=== PATIENT | female | born 1965 | race Caucasian/White ===

== ENCOUNTER 2016-12-09 19:02 | Outpatient (CLI) | payer MEDICAID | END 2016-12-09 19:03 | disposition home or self-care (01) | DX: R10.0 Acute abdomen (principal); Z90.710 Acquired absence of both cervix and uterus ==

== ENCOUNTER 2016-12-12 13:01 | Outpatient (CLI) | payer MEDICAID | END 2016-12-12 13:02 | disposition home or self-care (01) | DX: R10.0 Acute abdomen (principal); Z90.49 Acquired absence of other specified parts of digestive tract ==

== ENCOUNTER 2016-12-14 14:00 | Emergency (ER) | payer MEDICAID ==
[2016-12-14] MEDS ORDERED: KETOROLAC 60 MG/2 ML VIAL IVP STA (15:35)
[2016-12-14] MEDS ORDERED: ONDANSETRON 4 MG/2 ML VIAL IVP STA (15:35)
[2016-12-14] MEDS ORDERED: SODIUM CHLORIDE 0.9% 1,000 ML IV ONE (15:35)
[2016-12-14] MEDS ORDERED: HYDROmorphone 1 MG/ML SYRINGE IVP STA ×2 (15:36→17:45)
[2016-12-14] MEDS ORDERED: HYDROmorphone 1 MG/ML SYRINGE ONE ×2 (16:02→17:47)
[2016-12-14] MEDS ORDERED: KETOROLAC 30 MG/ML VIAL ONE (16:02)
[2016-12-14] MEDS ORDERED: ONDANSETRON 4 MG/2 ML VIAL ONE (16:03)
[2016-12-14] MEDS ORDERED: IOPAMIDOL-300 100 ML VIAL IVP ONE (16:29)
[2016-12-14] MEDS ORDERED: LIDOCAINE VISCOUS 2% 15 ML UDC MM STA (17:46)
[2016-12-14] MEDS ORDERED: MAG HYDROX/AL HYDROX/SIMETH 30 ML UDC PO STA (17:46)
[2016-12-14] MEDS ORDERED: LIDOCAINE VISCOUS 2% 15 ML UDC MM ONE (17:47)
[2016-12-14] MEDS ORDERED: MAG HYDROX/AL HYDROX/SIMETH 30 ML UDC ONE (17:48)
[2016-12-14] MEDS ORDERED: DOCUSATE SODIUM 100 MG CAPSULE PO STA (18:25)
[2016-12-14] MEDS ORDERED: DOCUSATE SODIUM 100 MG CAPSULE PO ONE (18:27)
== END 2016-12-14 18:34 | disposition home or self-care (01) ==
DX: R10.84 Generalized abdominal pain (principal); K59.00 Constipation, unspecified; M06.9 Rheumatoid arthritis, unspecified
CPT/HCPCS: 36415; 74177; 80053; 81003; 83690; 85025; 87339; 96374; 96375; 96376; 99281; 99283; A9270; J1170; Q9967

== ENCOUNTER 2017-03-24 08:00 | Outpatient (CLI) | payer MEDICAID | END 2017-03-24 23:59 | disposition home or self-care (01) | LOC: LAB.R 08:00 | PROVIDERS: ATTEND Physician Assistant Medical | DX: R10.2 Pelvic and perineal pain (principal); N72 Inflammatory disease of cervix uteri | CPT/HCPCS: 87086 ==

== ENCOUNTER 2017-03-25 12:13 | Outpatient (CLI) | payer MEDICAID ==
--- NOTE | 2017-03-26 07:35 | Ultrasound Report ---
PELVIC ULTRASOUND: 03/25/2017 CLINICAL HISTORY: A 52-year-old female with inflammation of the cervix with cervical pain during phys ical exam and pelvic pain on the right. TECHNIQUE: Transabdominal pelvic ultrasound performed for global evaluation. Transvaginal pelvic ultr asound performed for detailed evaluation. Real-time scanning performed and static images obtained. COMPARISON: 12/09/2016. FINDINGS: Transabdominal and transvaginal ultrasound was done. The uterus has been removed. The alli ining cervical tissue shows no abnormality on ultrasound. No abnormality is seen either on transabdom inal or transvaginal ultrasound. The right ovary measures 2.4 cm by 3.1 cm by 1.3 cm for a volume of 2.1 cubic centimeters. The left o vary measures 2.1 cm by 1.7 cm by 1.0 cm for a volume of 1.8 cubic centimeters. Both ovaries are visualized but appear to show postmenopausal atrophy. IMPRESSION: 1. PAST HISTORY OF A HYSTERECTOMY. REMAINING CERVICAL TISSUE SHOWS NO SIGNIFICANT ABNORMALITY EITHER ON TRANSABDOMINAL OR TRANSVAGINAL ULTRASOUND. 2. OVARIES ARE UNREMARKABLE. THEY DEMONSTRATE BILATERAL POSTMENOPAUSAL ATROPHY. JOB #: [id number] EXT JOB #:[id number]
== END 2017-03-25 12:14 | disposition home or self-care (01) ==
LOC: DI 12:13
PROVIDERS: ATTEND Physician Assistant Medical
DX: R10.2 Pelvic and perineal pain (principal); Z90.710 Acquired absence of both cervix and uterus; N83.312 Acquired atrophy of left ovary; N83.311 Acquired atrophy of right ovary
CPT/HCPCS: 76830; 76856

== ENCOUNTER 2017-04-05 08:00 | Outpatient (CLI) | payer MEDICAID ==
[2017-04-05 18:08] LABS: BILIRUBIN,URINE NEGATIVE (NEGATIVE)
[2017-04-05 18:13] LABS: BASOPHILS % (AUTO) 0.1 %; HCT - HEMATOCRIT 40.8 % (37.0-47.0); HGB - HEMOGLOBIN 13.9 g/dL (12.0-16.0); LYMPHOCYTES # (AUTO) 1.6 10^3/uL (1.5-3.5); LYMPHOCYTES % (AUTO) 27.3 %; MEAN CORPUSCULAR HEMOGLOBIN 29.7 pg (27.0-31.0); MEAN CORPUSCULAR HGB CONC 34.2 g/dL (32.0-36.0); MEAN CORPUSCULAR VOLUME 86.8 fL (81.0-99.0); MEAN PLATELET VOLUME 9.5 fL (7.9-10.8); MONOCYTES # (AUTO) 0.6 10^3/uL (0.0-1.0); MONOCYTES % (AUTO) 10.5 %; NEUTROPHILS # (AUTO) 3.7 10^3/uL (1.5-6.6); NEUTROPHILS % (AUTO) 62.1 %; NUCLEATED RED BLOOD CELLS AUTO 0.1 /100WBC; RED CELL DISTRIBUTION WIDTH 12.8 % (12.0-15.0)
[2017-04-05 18:17] LABS: WBC,URINE 0-3 /HPF (0-5)
[2017-04-05 18:38] LABS: ALBUMIN/GLOBULIN RATIO 1.6 (1.0-2.2); BILIRUBIN,TOTAL 0.4 mg/dL (0.2-1.0); CALCIUM 9.8 mg/dL (8.5-10.3); CREATININE 0.7 mg/dL (0.4-1.0); POTASSIUM 3.7 mmol/L (3.5-5.0); TOTAL PROTEIN 7.8 g/dL (6.7-8.2)
== END 2017-04-05 08:01 | disposition home or self-care (01) ==
LOC: LAB.F 08:00
PROVIDERS: ATTEND Internal Medicine
DX: R10.9 Unspecified abdominal pain (principal)
CPT/HCPCS: 36415; 80053; 81001; 83690; 85025

== ENCOUNTER 2017-04-14 20:02 | Outpatient (CLI) | payer MEDICAID ==
--- NOTE | 2017-04-15 09:53 | Ultrasound Report ---
COMPLETE ABDOMINAL ULTRASOUND: 04/14/2017 CLINICAL INDICATION: Pain. COMPARISON: CT 12/14/2016, ultrasound 12/12/2016. TECHNIQUE: Real-time scanning was performed with auto claim representative static images obtained. FINDINGS: The liver measures 13.1 cm. Hepatic echotexture is normal. No intrahepatic biliary dilat ation or focal parenchymal lesion is appreciated. The patient is status post cholecystectomy. The c ommon bile duct measures 6 mm. The pancreas appears edematous, and the patient did report localized tenderness of the pancreas. The kidneys are normal, with the right measuring 9.3 cm and the left lyla suring 9.2 cm. The spleen measures 8.1 cm, and appears unremarkable. The abdominal aorta is normal in caliber. The inferior vena cava is unremarkable. No free fluid is present. IMPRESSION: CHANGES OF CHOLECYSTECTOMY. EDEMATOUS APPEARANCE OF THE PANCREAS, WITH LOCALIZED TENDER NESS, SUGGESTIVE OF PANCREATITIS. CORRELATION WITH ENZYMATIC EVIDENCE OF PANCREATITIS IS RECOMMENDED . NO ASCITES. JOB #: [id number] EXT JOB #:[id number]
== END 2017-04-14 20:03 | disposition home or self-care (01) ==
LOC: DI 20:02
PROVIDERS: ATTEND Internal Medicine
DX: R10.9 Unspecified abdominal pain (principal); Z90.49 Acquired absence of other specified parts of digestive tract
CPT/HCPCS: 76700

== ENCOUNTER 2017-04-16 09:54 | Emergency (ER) | payer MEDICAID ==
[2017-04-16] MEDS ORDERED: ONDANSETRON 4 MG/2 ML VIAL IVP STA ×2 (10:52→13:43)
[2017-04-16] MEDS ORDERED: HYDROmorphone 1 MG/ML SYRINGE IVP STA ×2 (10:52→13:43)
[2017-04-16] MEDS ORDERED: SODIUM CHLORIDE 0.9% 1,000 ML IV ONE (10:52)
--- NOTE | 2017-04-16 10:55 | ED Physician Documentation ---
PD HPI ABD PAIN - Stated complaint Stated Complaint: ABD/BACK PX - Chief complaint Chief Complaint: Abd Pain - History obtained from History obtained from: Patient, Family - History of Present Illness Timing - onset: How many weeks ago (5) Timing - duration: Weeks (5) Timing - details: Gradual onset, Still present, Waxing and waning Quality: Cramping, Sharp, Pain Location: Epigastric Radiation: Upper back Improved by: Laying still, Vomiting, Position Worsened by: Eating, Breathing, Position, Palpation Associated symptoms: Nausea, Vomiting, Loss of appetite Similar symptoms before: Has not had sx before Recently seen: Clinic - Additional information Additional information: 52-year-old female with a month long history of epigastric pain nausea and vomiting that seems to get better if she does not eat and she has been drinking only tiny bits of fluid at a time because she gets pain even drinking water. She has had nausea and vomiting she has had a visit to her primary care doctor and an ultrasound is been obtained 2 days ago after discovering an elevated lipase on 05 April. The ultrasound demonstrated what appears to be evidence of pancreatitis. The patient has not had pancreatitis previously she has had a prior history of gallstones and had her gallbladder removed without common duct stone. She denies consumption of alcohol and she does not know what her triglycerides are.She does have a history of rheumatoid arthritis and is on Humira. She also has a history of silent reflux. Review of Systems Constitutional: denies: Fever Eyes: denies: Decreased vision Ears: denies: Ear pain Nose: denies: Congestion Throat: denies: Sore throat Cardiac: denies: Chest pain / pressure, Palpitations Respiratory: denies: Dyspnea, Cough GI: reports: Abdominal Pain, Nausea, Vomiting : denies: Dysuria, Frequency Skin: denies: Rash, Lesions Musculoskeletal: reports: Back pain. 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: Hysterectomy HEENT: Tonsil/Adenoidectomy - Present Medications Home Medications: Ambulatory Orders Medication Instructions Recorded Confirmed Adalimumab [Humira] 12/14/16 Atenolol 25 mg PO BID 12/14/16 12/14/16 Docusate Sodium 250Mg Capsule 250 mg PO DAILY #30 capsule 12/14/16 [Colace 250Mg Capsule] Gabapentin 600 mg PO QID 12/14/16 12/14/16 Hydrocodone/Acetaminophen [[place] 1 each PO Q6H PRN #20 tablet 12/14/16 5-325 Tablet] Meloxicam 7.5 mg PO BID 12/14/16 12/14/16 Naproxen 375 mg PO BID #20 tablet 12/14/16 Omeprazole 40 mg PO DAILY 12/14/16 12/14/16 Sucralfate 1 gm PO QID #40 tablet 12/14/16 HYDROcod/ACETAM 5/325 [[place] 5/325] 1 - 2 ea PO Q6H PRN #15 tablet 04/16/17 Ondansetron Odt [Zofran] 4 mg TL Q6H PRN #10 tablet 04/16/17 Sucralfate [Carafate] 1 gm PO ACHS #400 ml 04/16/17 - Allergies Allergies/Adverse Reactions: Allergies Allergy/AdvReac Type Severity Reaction Status Date / Time codeine Allergy Unknown Verified 12/14/16 14:06 - Social History Does the pt smoke?: No Smoking Status: Never smoker PD ED PE NORMAL - Vitals Vital signs reviewed: Yes (hypertensive) - General General: Well developed/nourished, Other (The patient appears to be in pain with validation intern tone and flattened affect she is clutching her abdomen and leaning forward.) - HEENT HEENT: Atraumatic, PERRL - Neck Neck: Supple, no meningeal sign - Cardiac Cardiac: RRR, No murmur - Respiratory Respiratory: No respiratory distress, Clear bilaterally - Abdomen Abdomen: Soft, Other (There is epigastric tenderness that is reproducible and there is not other abdominal tenderness. ) - Back Back: No CVA TTP, No spinal TTP - Derm Derm: Normal color, Warm and dry, No rash - Extremities Extremities: No deformity, No edema - Neuro Neuro: No motor deficit, No sensory deficit - Psych Psych: Normal mood Results - Vitals Vitals: Vital Signs - 24 hr 04/16/17 04/16/17 04/16/17 10:12 14:07 14:46 Temperature 36.6 C 36.5 C Heart Rate 84 66 69 Respiratory 18 18 14 Rate Blood Pressure 139/76 H 130/76 128/73 O2 Saturation 99 99 98 Oxygen O2 Source Room air - Labs Labs: Laboratory Tests 04/16/17 04/16/17 04/16/17 11:00 11:00 11:00 WBC 6.7 RBC 4.86 Hgb 14.4 Hct 42.2 MCV 86.9 MCH 29.7 MCHC 34.2 RDW 13.0 Plt Count 213 MPV 8.7 Neut # 4.3 Lymph # 1.7 [place] # 0.6 Eos # 0.0 Baso # 0.0 Absolute Nucleated RBC 0.00 Nucleated RBCs 0.0 Sodium 140 Potassium 3.9 Chloride 104 Carbon Dioxide 28 Anion Gap 8.0 BUN 13 Creatinine 0.9 Estimated GFR (MDRD) 65 L Glucose 104 H Calcium 9.6 Total Bilirubin 0.7 AST 22 ALT 21 Alkaline Phosphatase 40 L Troponin I < 0.04 Total Protein 7.1 Albumin 4.3 Globulin 2.8 Albumin/Globulin Ratio 1.5 Triglycerides 119 Lipase 39 Urine Color Urine Clarity Urine pH Ur Specific [place] Urine Protein Urine Glucose (UA) Urine Ketones Urine Occult Blood Urine Nitrite Urine Bilirubin Urine Urobilinogen Ur Leukocyte Esterase Ur Microscopic Review Urine Culture Comments Ethyl Alcohol < 5.0 H. pylori IgG Antibody 04/16/17 04/16/17 11:00 12:00 WBC RBC Hgb Hct MCV MCH MCHC RDW Plt Count MPV Neut # Lymph # [place] # Eos # Baso # Absolute Nucleated RBC Nucleated RBCs Sodium Potassium Chloride Carbon Dioxide Anion Gap BUN Creatinine Estimated GFR (MDRD) Glucose Calcium Total Bilirubin AST ALT Alkaline Phosphatase Troponin I Total Protein Albumin Globulin Albumin/Globulin Ratio Triglycerides Lipase Urine Color YELLOW Urine Clarity CLEAR Urine pH 7.0 Ur Specific [place] <=1.005 Urine Protein NEGATIVE Urine Glucose (UA) NEGATIVE Urine Ketones NEGATIVE Urine Occult Blood NEGATIVE Urine Nitrite NEGATIVE Urine Bilirubin NEGATIVE Urine Urobilinogen 0.2 (NORMAL) Ur Leukocyte Esterase NEGATIVE Ur Microscopic Review NOT INDICATED Urine Culture Comments NOT INDICATED Ethyl Alcohol H. pylori IgG Antibody Negative - Rads (name of study) CT abdomen pelvis with Radiology: Prelim report reviewed (Impression: 1. Normal CT imaging of the pancreas and peripancreatic space.2. Status postcholecystectomy, with mild intra-and extrahepatic bile duct dilation without visualizing filling defect, probably secondary to changes of cholecystectomy.3. Persistent mild hepatic steatosis and a small hepatic nodule in the lower right lobe, 4 mm, probable small hemangioma, otherwise too small to further characterize.4. Negative for bowel obstruction or inflammatory changes.), EMP read indepedently, See rad report PD MEDICAL DECISION MAKING - ED course Complexity details: reviewed old records, reviewed results, re-evaluated patient , considered differential, d/w patient, d/w family ED course: 52 y/o female with a history of silent GERD on omeprezole has developed epigastric pain radiating to her back and nausea and vomiting for the past month. She feels that her omeprazole has stopped working and here in the emergency department she is administered a GI cocktail consisting of viscous lidocaine Mylanta and Carafate. She does have some improvement but not resolution of her symptoms. She is subsequently given more Dilaudid and Zofran as well as IV Pepcid. Departure - Departure Disposition: 01 Home, Self Care Clinical Impression: Gastritis Qualifiers: Gastritis type: other gastritis Chronicity: acute Gastritis bleeding: presence of bleeding unspecified Qualified Code(s): K29.00 - Acute gastritis without bleeding Condition: Stable Instructions: ED PUD Vs Gastritis Follow-Up: Fermin Sahni MD [Primary Care Provider] - Prescriptions: Sucralfate [Carafate] 1 gm PO ACHS #400 ml HYDROcod/ACETAM 5/325 [[place] 5/325] 1 - 2 ea PO Q6H PRN #15 tablet PRN Reason: Pain Ondansetron Odt [Zofran] 4 mg TL Q6H PRN #10 tablet PRN Reason: Nausea / Vomiting Comments: Today it appears you have inflammation in the stomach or duodenum and this likely represents an ulcer. Switch your medication for acid in the stomach to Pepcid and take the carafate as prescribed before meals and at bedtime. Use the vicoden as needed and follow up with the surgeon for a look inside the stomach. Discharge Date/Time: 04/16/17 14:55
[2017-04-16 11:08] LABS: BASOPHILS % (AUTO) 0.7 %; EOSINOPHILS % (AUTO) 0.6 %; HCT - HEMATOCRIT 42.2 % (37.0-47.0); HGB - HEMOGLOBIN 14.4 g/dL (12.0-16.0); LYMPHOCYTES # (AUTO) 1.7 10^3/uL (1.5-3.5); LYMPHOCYTES % (AUTO) 25.9 %; MEAN CORPUSCULAR HEMOGLOBIN 29.7 pg (27.0-31.0); MEAN CORPUSCULAR HGB CONC 34.2 g/dL (32.0-36.0); MEAN CORPUSCULAR VOLUME 86.9 fL (81.0-99.0); MEAN PLATELET VOLUME 8.7 fL (7.9-10.8); MONOCYTES # (AUTO) 0.6 10^3/uL (0.0-1.0); MONOCYTES % (AUTO) 8.2 %; NEUTROPHILS # (AUTO) 4.3 10^3/uL (1.5-6.6); NEUTROPHILS % (AUTO) 64.6 %; RED BLOOD COUNT 4.86 10^6/uL (4.20-5.40); UNCORRECTED WHITE BLOOD COUNT 6.7 x10^3/uL; WHITE BLOOD COUNT 6.7 x10^3/uL (4.8-10.8)
[2017-04-16] MEDS ORDERED: ONDANSETRON 4 MG/2 ML VIAL ONE ×2 (11:10→13:53)
[2017-04-16] MEDS ORDERED: HYDROmorphone 1 MG/ML SYRINGE ONE ×2 (11:10→13:53)
[2017-04-16 11:23] LABS: ALBUMIN/GLOBULIN RATIO 1.5 (1.0-2.2); BILIRUBIN,TOTAL 0.7 mg/dL (0.2-1.0); BUN - BLOOD UREA NITROGEN 13 mg/dL (6-20); CALCIUM 9.6 mg/dL (8.5-10.3); CARBON DIOXIDE - CO2 28 mmol/L (21-32); CHLORIDE 104 mmol/L (101-111); CREATININE 0.9 mg/dL (0.4-1.0); GFR - MDRD 65 (>89); GLUCOSE 104 mg/dL (70-100); LIPASE 39 U/L (22-51); POTASSIUM 3.9 mmol/L (3.5-5.0); SODIUM 140 mmol/L (135-145); TOTAL PROTEIN 7.1 g/dL (6.7-8.2); TRIGLYCERIDES 119 mg/dL
[2017-04-16] MEDS ORDERED: IOPAMIDOL-300 100 ML VIAL IVP ONE (11:53)
[2017-04-16 12:19] LABS: BILIRUBIN,URINE NEGATIVE (NEGATIVE)
[2017-04-16 12:21] LABS: UA CHARGE (STRIP ONLY) YES; UR CULTURE IF IND NOT INDICATED
--- NOTE | 2017-04-16 12:40 | CT Preliminary Report ---
Exam: CT Abdomen/Pelvis W/ IMPRESSION: 1. Normal CT imaging of the pancreas and peripancreatic space. 2. Status post cholecystectomy, with mild intra-and extrahepatic bile duct dilatation without visuali zed filling defect, probable secondary changes of the cholecystectomy 3. Persistent mild hepatic steatosis and a small hepatic nodule in the lower right lobe, 4 mm, probab le small hemangioma, otherwise too small to further characterized. 4. Negative for bowel obstruction or inflammatory changes. [facility] SITE ID: [id number]
[2017-04-16] MEDS ORDERED: MAG HYDROX/AL HYDROX/SIMETH 30 ML UDC PO STA (12:43)
[2017-04-16] MEDS ORDERED: LIDOCAINE VISCOUS 2% 15 ML UDC MM STA (12:43)
[2017-04-16] MEDS ORDERED: SUCRALFATE 1 GM/10 ML UDC PO STA (12:43)
--- NOTE | 2017-04-16 12:43 | CT Report ---
EXAM: CT ABDOMEN AND PELVIS EXAM DATE: 04/16/2017 11:54 AM. CLINICAL HISTORY: Epigastric pain/pancreatitis radiating to back. . COMPARISONS: 12/14/2016. TECHNIQUE: Routine helical CT imaging was performed through the abdomen and pelvis. IV contrast: 100 cc Isovue 300. Enteric contrast: No. Reconstructions: Coronal and sagittal. In accordance with CT protocol optimization, one or more of the following dose reduction techniques w ere utilized for this exam: automated exposure control, adjustment of mA and/or KV based on patient s ize, or use of iterative reconstructive technique. FINDINGS: Lung Bases: Unremarkable. Liver: The hyper enhancing hepatic nodule 4 mm in the lower part of segment 6, probably a small heman gioma, unchanged. There is again diffuse mild low density without contour changes or new masses. Gallbladder/Bile Ducts: Status post cholecystectomy with mild intra extrahepatic bile duct dilatation , and borderline dilated common bile duct without bile duct filling defect, no significant interval c hanges. Spleen: Normal. Pancreas: Normal. Adrenal Glands: Normal. Kidneys: No stone, masses or hydronephrosis. Peritoneal Cavity/Bowel: Normal. No free fluid, free air or adenopathy. No masses or acute inflammato ry process. The appendix is likely surgically absent. Pelvic Organs: Normal. The bladder and visualized pelvic organs are within normal limits. Vasculature: No aneurysms or other significant abnormality. Bones: No significant abnormality. Other: No hernia seen. IMPRESSION: 1. Normal CT imaging of the pancreas and peripancreatic space. 2. Status post cholecystectomy, with mild intra-and extrahepatic bile duct dilatation without visuali zed filling defect, probable secondary changes of the cholecystectomy 3. Persistent mild hepatic steatosis and a small hepatic nodule in the lower right lobe, 4 mm, probab le small hemangioma, otherwise too small to further characterized. 4. Negative for bowel obstruction or inflammatory changes. [facility] Referring Provider Line: [phone] SITE ID: [id number]
[2017-04-16] MEDS ORDERED: MAG HYDROX/AL HYDROX/SIMETH 30 ML UDC ONE (13:05)
[2017-04-16] MEDS ORDERED: SUCRALFATE 1 GM/10 ML UDC ONE (13:05)
[2017-04-16] MEDS ORDERED: LIDOCAINE VISCOUS 2% 15 ML UDC MM ONE (13:05)
[2017-04-16 13:36] LABS: HPYLORI NEG QC Negative (Negative); HPYLORI POS QC POSITIVE (Positive)
[2017-04-16 13:41] LABS: H. PYLORI IGG ANTIBODY Negative (Negative)
[2017-04-16] MEDS ORDERED: FAMOTIDINE 20 MG/50 ML 50 ML IV ONE ×2 (13:42→13:55)
[2017-04-16 14:46] VITALS: BP 128/73
== END 2017-04-16 14:55 | disposition home or self-care (01) ==
LOC: ED 09:54
DX: K29.00 Acute gastritis without bleeding (principal)
CPT/HCPCS: 36415; 74177; 80053; 80320; 81003; 83690; 84478; 84484; 85025; 87339; 96374; 96375; 96376; 99283; 99284; A9270; J1170; Q9967; 81001; 87086

== ENCOUNTER 2017-04-20 15:21 | Outpatient (CLI) | payer MEDICAID | END 2017-04-20 15:22 | disposition home or self-care (01) | LOC: LAB.F 15:21 | PROVIDERS: ATTEND Internal Medicine | DX: R10.9 Unspecified abdominal pain (principal) | CPT/HCPCS: 87338 ==

== ENCOUNTER 2017-05-13 10:52 | Day surgery (SDC) | payer MEDICAID ==
[2017-05-13] MEDS ORDERED: LACTATED RINGERS 1,000 ML IV ONE ×2 (11:43→13:28)
[2017-05-13] MEDS ORDERED: BENZOCAINE/TETRACAINE/BUTAMBEN SPRAY 56 GM TOP ONE ×2 (12:19→12:26)
[2017-05-13] MEDS ORDERED: PROPOFOL 200 MG/20 ML VIAL IVP ONE (12:26)
[2017-05-13] MEDS ORDERED: MIDAZOLAM 2 MG/2 ML VIAL IVP ONE (12:26)
[2017-05-13] MEDS ORDERED: fentaNYL 100 MCG/2 ML VIAL IVP ONE (12:26)
[2017-05-13 15:07] VITALS: BP 114/64
== END 2017-05-13 10:53 | disposition home or self-care (01) ==
LOC: SDS 10:52
PROVIDERS: ATTEND Surgery
PROC: 0DB18ZX Excision of Upper Esophagus, Via Natural or Artificial Opening Endoscopic, Diagnostic (ICD-10-PCS; principal; 2017-05-13 12:15)
PROC: 0DB78ZX Excision of Stomach, Pylorus, Via Natural or Artificial Opening Endoscopic, Diagnostic (ICD-10-PCS; 2017-05-13 12:15)
DX: Z12.11 Encounter for screening for malignant neoplasm of colon (principal); R10.9 Unspecified abdominal pain; K44.9 Diaphragmatic hernia without obstruction or gangrene; Q43.8 Other specified congenital malformations of intestine; I10 Essential (primary) hypertension; Z82.49 Family history of ischemic heart disease and other diseases of the circulatory system; Z88.5 Allergy status to narcotic agent; Z87.891 Personal history of nicotine dependence
CPT/HCPCS: 43239; 88305; A9270; J7120

== ENCOUNTER 2017-06-06 09:52 | Emergency (ER) | payer MEDICAID ==
[2017-06-06] MEDS ORDERED: SODIUM CHLORIDE 0.9% 1,000 ML IV ONE (11:14)
[2017-06-06] MEDS ORDERED: PROCHLORPERAZINE INJ 10 MG in SODIUM CHLORIDE 0.9% 50 ML IV ONE (11:21)
[2017-06-06 11:28] LABS: BASOPHILS % (AUTO) 0.7 %; EOSINOPHILS # (AUTO) 0.2 10^3/uL (0.0-0.7); EOSINOPHILS % (AUTO) 3.7 %; HCT - HEMATOCRIT 38.2 % (37.0-47.0); HGB - HEMOGLOBIN 13.1 g/dL (12.0-16.0); LYMPHOCYTES # (AUTO) 2.1 10^3/uL (1.5-3.5); LYMPHOCYTES % (AUTO) 47.6 %; MEAN CORPUSCULAR HEMOGLOBIN 29.5 pg (27.0-31.0); MEAN CORPUSCULAR HGB CONC 34.2 g/dL (32.0-36.0); MEAN CORPUSCULAR VOLUME 86.3 fL (81.0-99.0); MEAN PLATELET VOLUME 8.8 fL (7.9-10.8); MONOCYTES # (AUTO) 0.5 10^3/uL (0.0-1.0); MONOCYTES % (AUTO) 11.5 %; NEUTROPHILS # (AUTO) 1.6 10^3/uL (1.5-6.6); NEUTROPHILS % (AUTO) 36.5 %; RED BLOOD COUNT 4.43 10^6/uL (4.20-5.40); UNCORRECTED WHITE BLOOD COUNT 4.4 x10^3/uL; WHITE BLOOD COUNT 4.4 x10^3/uL (4.8-10.8)
[2017-06-06] MEDS ORDERED: PROCHLORPERAZINE 10 MG/2 ML VIAL ONE (11:42)
[2017-06-06 11:43] LABS: ALBUMIN/GLOBULIN RATIO 1.5 (1.0-2.2); BILIRUBIN,TOTAL 0.4 mg/dL (0.2-1.0); CALCIUM 9.8 mg/dL (8.5-10.3); CREATININE 0.9 mg/dL (0.4-1.0); POTASSIUM 3.5 mmol/L (3.5-5.0); TOTAL PROTEIN 7.3 g/dL (6.7-8.2)
[2017-06-06 12:27] LABS: BILIRUBIN,URINE NEGATIVE (NEGATIVE); PH,URINE 7.5 PH (5.0-7.5)
[2017-06-06 12:28] LABS: UA CHARGE (STRIP ONLY) YES; UR CULTURE IF IND NOT INDICATED
--- NOTE | 2017-06-06 12:50 | CT Report ---
EXAM: CT SOFT TISSUE NECK EXAM DATE: 06/06/2017 11:33 AM. HISTORY: Clinical concern for left anterior neck mass. Left facial numbness. COMPARISONS: None. TECHNIQUE: Routine soft tissue neck CT protocol. IV contrast: None. Reconstructions: Coronal and sagi ttal. In accordance with CT protocol optimization, one or more of the following dose reduction techniques w ere utilized for this exam: automated exposure control, adjustment of mA and/or KV based on patient s ize, or use of iterative reconstructive technique. FINDINGS: No thyroid abnormality demonstrated by this noncontrast CT. Unremarkable unenhanced contours of the submandibular and parotid salivary glands. Nonspecific soft tissue fullness at the tongue base left greater than right. Asymmetrical lingual ton zbigniew hypertrophy is more likely than tumor. Otherwise unremarkable appearance of the pharynx and larynx. No evidence for other airway mass or orestes nosis. Normal epiglottis. No typical findings of acute pharyngitis or laryngitis. No evidence for cervical adenopathy or other focal neck mass or infiltrate, allowing for limitations of noncontrast soft tissue neck CT technique. Grossly clear lung apices. Comparing axial images 15 and 13 from series 3, it is possible that the left foramen ovale is larger than the right foramen ovale. The osseous contours otherwise appear normal and there is no evidence f or active bone destruction or obvious active remodeling. Asymmetry may be secondary to slight patient asymmetry or slice angulation. IMPRESSION: 1. Nonspecific asymmetric fullness at the left tongue base, more likely lingual tonsil hypertrophy th an tumor mass. 2. Unremarkable appearance of the thyroid gland and major salivary glands, for noncontrast technique. 3. Soft tissue neck CT findings are otherwise negative for mass. 4. If there is additional clinical concern for acute or focal soft tissue neck pathology, consider fo llow-up with contrast-enhanced CT or MRI of the neck, as clinically warranted. 5. No definitive explanation on this study for left facial numbness, if there is additional clinical concern, MRI of the brain and posterior fossa without and with contrast could be considered. Findings are equivocal for asymmetry of the contours of the foramen ovale. [facility] Referring Provider Line: [phone] SITE ID: [id number]
[2017-06-06] MEDS ORDERED: diphenhydrAMINE INJ 50 MG/ML VIAL IVP STA (13:00)
[2017-06-06] MEDS ORDERED: diphenhydrAMINE INJ 50 MG/ML VIAL ONE (13:05)
--- NOTE | 2017-06-06 14:15 | CT Preliminary Report ---
Exam: CT Head W/O IMPRESSION: Negative nonenhanced head CT. [facility] SITE ID: [id number]
--- NOTE | 2017-06-06 14:18 | CT Report ---
EXAM: CT HEAD EXAM DATE: 06/06/2017 01:48 PM. CLINICAL HISTORY: Increasing headaches Left facial numbness. COMPARISON: None. TECHNIQUE: Multiaxial CT images were obtained from the foramen magnum to the vertex. IV contrast: Non e. Reformats: Coronal. In accordance with CT protocol optimization, one or more of the following dose reduction techniques w ere utilized for this exam: automated exposure control, adjustment of mA and/or KV based on patient s ize, or use of iterative reconstructive technique. FINDINGS: Parenchyma: No intraparenchymal hemorrhage. No evidence of mass, midline shift, or CT findings of inf arction. [place]-white differentiation is distinct. Extraaxial Spaces: Normal for age. No subdural or epidural collections identified. Ventricles: Normal in size and position. Sinuses: Imaged paranasal sinuses, orbits, and mastoids show no significant abnormality. Bones: No evidence of fracture or calvarial defect. Other: None. IMPRESSION: Negative nonenhanced head CT. [facility] Referring Provider Line: [phone] SITE ID: [id number]
[2017-06-06 14:51] VITALS: BP 134/78
--- NOTE | 2017-06-06 15:07 | ED Physician Documentation ---
PD HPI FOCAL NEURO - Stated complaint Stated Complaint: HEADACHE/NUMBNESS - Chief complaint Chief Complaint: Neuro - History obtained from History obtained from: Patient - Additional information Additional information: Is a 52-year-old female with a long history of migrainous headaches on Imitrex to complains about increased frequency of headaches over the past couple of weeks. She normally takes Imitrex with improvement. On occasion she also gets a numb tingly sensation in the left side of her face which is been present for a couple weeks. She also has had some difficulty of swallowing and has a sensation that there is a lump in her throat. She is also had weight loss and recently was seen by general surgeon and had endoscopy done. They did find some mild nonspecific inflammation of her pancreas on CT scan that was never consistent with enzyme level testing. She denies any chest pain or shortness of breath. There is no nausea vomiting constipation diarrhea or lower urinary symptoms. Review of systems: For pertinent positive and negatives in the review of systems please see the history of present illness, otherwise all other systems have been reviewed and are negative. Dragon disclaimer: Parts of this medical record were created using voice recognition technology. Because of the inherent limitations of this system, occasional same sounding word substitutions do occur and persist despite proofreading. Please read the document for context. 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 NURSE: Hysterectomy HEENT: Tonsil/Adenoidectomy - Present Medications Home Medications: Ambulatory Orders Medication Instructions Recorded Confirmed Adalimumab [Humira] 20 mg INJ ONCE 12/14/16 06/06/17 Atenolol 25 mg PO DAILY 12/14/16 06/06/17 Gabapentin 600 mg PO QID 12/14/16 06/06/17 Sucralfate 1 gm PO QID #40 tablet 12/14/16 06/06/17 Eszopiclone [Lunesta] 3 mg PO ONCE PRN #18 tablet 06/06/17 Sumatriptan [Imitrex] 25 mg PO PRN PRN 06/06/17 06/06/17 raNITIdine [Zantac] 150 mg pe PO DAILY 06/06/17 06/06/17 - Allergies Allergies/Adverse Reactions: Allergies Allergy/AdvReac Type Severity Reaction Status Date / Time codeine Allergy Unknown Verified 12/14/16 14:06 - Social History Does the pt smoke?: No Smoking Status: Never smoker PD ED PE NORMAL - Vitals Vital signs reviewed: Yes - General General: Alert and oriented X 3, No acute distress - HEENT HEENT: Atraumatic, PERRL, EOMI, Pharynx benign, Dentition benign - Neck Neck: Supple, no meningeal sign, No JVD, No bruit, Other (Mild goiter on examination) - Cardiac Cardiac: RRR, No murmur - Respiratory Respiratory: No respiratory distress - Abdomen Abdomen: Normal bowel sounds - Derm Derm: Normal color, Warm and dry - Extremities Extremities: No deformity, No tenderness to palpate, Normal ROM s pain, No edema - Neuro Neuro: Alert and oriented X 3, toilet attendant 2-12 intact, No motor deficit, No sensory deficit Results - Vitals Vitals: Vital Signs - 24 hr 06/06/17 06/06/17 06/06/17 09:56 11:47 12:45 Temperature 36.5 C Heart Rate 82 67 67 Respiratory 16 16 16 Rate Blood Pressure 142/92 H 130/82 H 112/66 O2 Saturation 98 100 98 06/06/17 14:50 Temperature Heart Rate 72 Respiratory 16 Rate Blood Pressure 134/78 H O2 Saturation 98 Oxygen O2 Source Room air - Labs Labs: Laboratory Tests 06/06/17 06/06/17 06/06/17 11:23 11:23 11:23 WBC 4.4 L RBC 4.43 Hgb 13.1 Hct 38.2 MCV 86.3 MCH 29.5 MCHC 34.2 RDW 14.0 Plt Count 211 MPV 8.8 Neut # 1.6 Lymph # 2.1 [place] # 0.5 Eos # 0.2 Baso # 0.0 Absolute Nucleated RBC 0.00 Nucleated RBCs 0.0 Sodium 143 Potassium 3.5 Chloride 106 Carbon Dioxide 29 Anion Gap 8.0 BUN 9 Creatinine 0.9 Estimated GFR (MDRD) 65 L Glucose 85 Calcium 9.8 Total Bilirubin 0.4 AST 22 ALT 14 Alkaline Phosphatase 40 L Total Protein 7.3 Albumin 4.4 Globulin 2.9 Albumin/Globulin Ratio 1.5 Lipase 21 L TSH 0.32 L Free T4 Free T3 pg/mL Urine Color Urine Clarity Urine pH Ur Specific [place] Urine Protein Urine Glucose (UA) Urine Ketones Urine Occult Blood Urine Nitrite Urine Bilirubin Urine Urobilinogen Ur Leukocyte Esterase Ur Microscopic Review Urine Culture Comments 06/06/17 06/06/17 06/06/17 12:17 13:00 13:00 WBC RBC Hgb Hct MCV MCH MCHC RDW Plt Count MPV Neut # Lymph # [place] # Eos # Baso # Absolute Nucleated RBC Nucleated RBCs Sodium Potassium Chloride Carbon Dioxide Anion Gap BUN Creatinine Estimated GFR (MDRD) Glucose Calcium Total Bilirubin AST ALT Alkaline Phosphatase Total Protein Albumin Globulin Albumin/Globulin Ratio Lipase TSH Free T4 1.77 H Free T3 pg/mL 3.53 Urine Color YELLOW Urine Clarity CLEAR Urine pH 7.5 Ur Specific [place] 1.010 Urine Protein NEGATIVE Urine Glucose (UA) NEGATIVE Urine Ketones NEGATIVE Urine Occult Blood NEGATIVE Urine Nitrite NEGATIVE Urine Bilirubin NEGATIVE Urine Urobilinogen 0.2 (NORMAL) Ur Leukocyte Esterase NEGATIVE Ur Microscopic Review NOT INDICATED Urine Culture Comments NOT INDICATED PD MEDICAL DECISION MAKING - ED course ED course: Patient is a pleasant 52-year-old female with history of migraine headaches and rheumatoid arthritis. She presents with increasingly worse headache frequency occasional numbness and tingling to her face and a feeling of a lump in her throat. On examination she does have a goiter. She has no history of thyroid problems. A CT scan of the head and neck were done and are unremarkable. Her thyroid was generous on physical examination thorough thyroid studies were done. Her TSH is actually low and her T4 is actually elevated. This is consistent with mild hyperthyroidism. Given the fact that she has goiter and hyperthyroidism I am concerned about a possible thyroiditis. Her T3 is normal. She has no symptoms that warrant emergent treatment and has a follow-up appointment next week with her new plastic sewer. I have copied the lab results for her so that they can hand carry them to their new plastic sewer. I am recommending additional thyroid studies and believe she probably will need a thyroid ultrasound in the future as well. It is possible that her thyroid condition is explaining her multiple symptoms. Clinical impression: 1. Mild hyperthyroidism with goiter Disposition: To home Departure - Departure Disposition: Home, Self Care Clinical Impression: Hyperthyroidism Head ache Qualifiers: Headache type: unspecified Headache chronicity pattern: acute headache Condition: Good Instructions: ED Hyperthyroidism, ED Headache Migraine Follow-Up: Fermin Sahni MD [Primary Care Provider] - Prescriptions: Eszopiclone [Lunesta] 3 mg PO ONCE PRN #18 tablet PRN Reason: Insomnia
== END 2017-06-06 15:07 | disposition home or self-care (01) ==
LOC: ED 09:52
DX: E05.00 Thyrotoxicosis with diffuse goiter without thyrotoxic crisis or storm (principal); R51 Headache; I10 Essential (primary) hypertension; K21.9 Gastro-esophageal reflux disease without esophagitis; M06.9 Rheumatoid arthritis, unspecified
CPT/HCPCS: 36415; 70450; 70490; 80053; 81003; 83690; 84439; 84443; 84481; 85025; 96365; 96375; 99284; J7040; 81001; 87086

== ENCOUNTER 2017-06-08 09:00 | Emergency (ER) | payer MEDICAID ==
[2017-06-08] MEDS ORDERED: SODIUM CHLORIDE FLUSH 0.9% 10 ML SYRINGE IVP ONE (10:11)
--- NOTE | 2017-06-08 10:23 | ED Physician Documentation ---
PD HPI NVD - Stated complaint Stated Complaint: VOMITING - Chief complaint Chief Complaint: Abd Pain - History obtained from History obtained from: Patient, Family - History of Present Illness Timing - onset: How many days ago (3) Timing - duration: Days (3) Timing - details: Gradual onset, Still present Associated symptoms: Abdominal pain, Dizzy, Loss of appetite, Weight loss (25lb) Improved by: Laying still Worsened by: Moving, Position, Palpation Similar symptoms before: Diagnosis (gastritis) Recently seen: Emergency Dept (Seen in the ED 2 days ago with acute migraine with left facial numbness. Had Ct and labs done then recived fluids and found hyperthyroid.) - Additonal information Additional information: 52-year-old female with a prior history of cholelithiasis has had her gallbladder out and she is subsequently had an episode of pancreatitis and this has resolved and she has had upper endoscopy and has been on some Carafate for gastritis. She has developed some left facial numbness dizziness headache nausea and vomiting. She was seen in the emergency department given a cocktail of medications for migraine and she improved. She continued to have some dizziness and left facial numbness.She was diagnosed with hyperthyroidism on her visit to the ED 2 days ago. She describes both dizziness in the form of vertigo and dizziness in the form of lightheadedness. Review of Systems Constitutional: reports: Chills, Myalgias, Fatigue, Sweats Eyes: denies: Decreased vision Ears: reports: Ear pain Nose: denies: Rhinorrhea / runny nose, Congestion Throat: reports: Sore throat Cardiac: denies: Chest pain / pressure, Palpitations Respiratory: reports: Cough. denies: Dyspnea GI: reports: Abdominal Pain, Nausea, Vomiting : reports: Frequency. denies: Dysuria Skin: denies: Rash Musculoskeletal: denies: Neck pain, Back pain, Extremity pain Neurologic: reports: Generalized weakness. 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 HEENT: Tonsil/Adenoidectomy - Present Medications Home Medications: Ambulatory Orders Medication Instructions Recorded Confirmed Adalimumab [Humira] 20 mg INJ ONCE 12/14/16 06/08/17 Atenolol 25 mg PO DAILY 12/14/16 06/08/17 Gabapentin 600 mg PO QID 12/14/16 06/08/17 Sucralfate 1 gm PO QID #40 tablet 12/14/16 06/08/17 Eszopiclone [Lunesta] 3 mg PO ONCE PRN #18 tablet 06/06/17 06/08/17 Sumatriptan [Imitrex] 25 mg PO PRN PRN 06/06/17 06/08/17 raNITIdine [Zantac] 150 mg pe PO DAILY 06/06/17 06/08/17 Meclizine [Antivert] 25 mg PO Q6H #20 tablet 06/08/17 Methimazole [Tapazole] 10 mg PO DAILY #20 tablet 06/08/17 - Allergies Allergies/Adverse Reactions: Allergies Allergy/AdvReac Type Severity Reaction Status Date / Time codeine Allergy Unknown Verified 06/08/17 09:03 - Social History Does the pt smoke?: No Smoking Status: Never smoker PD ED PE NORMAL - Vitals Vital signs reviewed: Yes (hypertensive) - General General: Alert and oriented X 3, Well developed/nourished - HEENT HEENT: Atraumatic, PERRL, EOMI, Ears normal, Other (dry mucous membranes) - Neck Neck: Supple, no meningeal sign, Other (The thyroid is generous in size nodular and tender. ) - Cardiac Cardiac: RRR, No murmur - Respiratory Respiratory: No respiratory distress, Clear bilaterally - Abdomen Abdomen: Soft, Non tender - Back Back: No CVA TTP, No spinal TTP - Derm Derm: Normal color, No rash - Extremities Extremities: No deformity, No edema - Neuro Neuro: No motor deficit, No sensory deficit - Psych Psych: Normal mood, Normal affect Results - Vitals Vitals: Vital Signs - 24 hr 06/08/17 06/08/17 06/08/17 09:00 10:40 12:34 Temperature 36.1 C L 36.5 C 36.6 C Heart Rate 75 78 88 Respiratory 16 15 16 Rate Blood Pressure 160/95 H 138/93 H 122/80 O2 Saturation 100 98 98 06/08/17 06/08/17 14:06 16:43 Temperature 36.5 C Heart Rate 78 80 Respiratory 16 16 Rate Blood Pressure 104/61 130/84 H O2 Saturation 100 99 Oxygen O2 Source Room air - Labs Labs: Laboratory Tests 06/08/17 06/08/17 06/08/17 09:05 09:05 09:05 WBC 5.8 RBC 4.44 Hgb 13.2 Hct 38.4 MCV 86.5 MCH 29.6 MCHC 34.3 RDW 13.7 Plt Count 200 MPV 9.1 Neut # 3.5 Lymph # 1.6 [place] # 0.5 Eos # 0.1 Baso # 0.0 Absolute Nucleated RBC 0.00 Nucleated RBCs 0.0 Sodium 140 Potassium 3.6 Chloride 104 Carbon Dioxide 29 Anion Gap 7.0 BUN 10 Creatinine 0.8 Estimated GFR (MDRD) 75 L Glucose 103 H Calcium 9.4 Total Bilirubin 0.5 AST 21 ALT 12 Alkaline Phosphatase 37 L Troponin I < 0.04 Total Protein 7.1 Albumin 4.3 Globulin 2.8 Albumin/Globulin Ratio 1.5 Lipase 27 Urine Color Urine Clarity Urine pH Ur Specific [place] Urine Protein Urine Glucose (UA) Urine Ketones Urine Occult Blood Urine Nitrite Urine Bilirubin Urine Urobilinogen Ur Leukocyte Esterase Ur Microscopic Review Urine Culture Comments 06/08/17 13:22 WBC RBC Hgb Hct MCV MCH MCHC RDW Plt Count MPV Neut # Lymph # [place] # Eos # Baso # Absolute Nucleated RBC Nucleated RBCs Sodium Potassium Chloride Carbon Dioxide Anion Gap BUN Creatinine Estimated GFR (MDRD) Glucose Calcium Total Bilirubin AST ALT Alkaline Phosphatase Troponin I Total Protein Albumin Globulin Albumin/Globulin Ratio Lipase Urine Color LIGHT YELLOW Urine Clarity CLEAR Urine pH 7.5 Ur Specific [place] 1.010 Urine Protein NEGATIVE Urine Glucose (UA) NEGATIVE Urine Ketones NEGATIVE Urine Occult Blood NEGATIVE Urine Nitrite NEGATIVE Urine Bilirubin NEGATIVE Urine Urobilinogen 0.2 (NORMAL) Ur Leukocyte Esterase NEGATIVE Ur Microscopic Review NOT INDICATED Urine Culture Comments NOT INDICATED Procedures - IVC sono (time) 1015 Bedside IVC sono: IVC measures (cm) (0.55), Significant dehydration 1505 Bedside IVC sono: IVC measures (cm) (1.02), Dehydration (after 2 liters saline.) PD MEDICAL DECISION MAKING - ED course Complexity details: reviewed old records, reviewed results, re-evaluated patient , considered differential, d/w patient, d/w family ED course: 52 y/o female with 2 weeks symptoms of lightheadedness and dizziness is found to be significantly dehydrated on interrogation of the IVC and she is administered 2 liters saline IV with improvement but not resolution of symptoms. She is administered a 3rd liter. She has normal counts, indices and electrolytes and no evidence of infection on exam or on evaluation of the urine. She has been found to have hyperthyroidism and has had symptoms of insomnia and weight loss. 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 Departure - Departure Disposition: 01 Home, Self Care Clinical Impression: Hyperthyroidism, Dehydration Labyrinthitis Qualifiers: Laterality: bilateral Qualified Code(s): H83.03 - Labyrinthitis, bilateral Instructions: ED Dehydration, ED Labyrinthitis, Hyperthyroidism Dc Follow-Up: Your, doctor [Other] Prescriptions: Meclizine [Antivert] 25 mg PO Q6H #20 tablet Methimazole [Tapazole] 10 mg PO DAILY #20 tablet Comments: Today we found you to be profoundly dehydrated and with evidence of labyrinthitis. Continue your atenolol and start the methimazole. Use the meclinzine as needed for vertigo or room spinning. Discharge Date/Time: 06/08/17 16:44
[2017-06-08] MEDS ORDERED: SODIUM CHLORIDE 0.9% 1,000 ML IV ONE ×3 (11:10→15:11)
[2017-06-08 11:18] LABS: BASOPHILS % (AUTO) 0.4 %; EOSINOPHILS # (AUTO) 0.1 10^3/uL (0.0-0.7); HCT - HEMATOCRIT 38.4 % (37.0-47.0); HGB - HEMOGLOBIN 13.2 g/dL (12.0-16.0); LYMPHOCYTES # (AUTO) 1.6 10^3/uL (1.5-3.5); LYMPHOCYTES % (AUTO) 28.5 %; MEAN CORPUSCULAR HEMOGLOBIN 29.6 pg (27.0-31.0); MEAN CORPUSCULAR HGB CONC 34.3 g/dL (32.0-36.0); MEAN CORPUSCULAR VOLUME 86.5 fL (81.0-99.0); MEAN PLATELET VOLUME 9.1 fL (7.9-10.8); MONOCYTES # (AUTO) 0.5 10^3/uL (0.0-1.0); MONOCYTES % (AUTO) 8.7 %; NEUTROPHILS # (AUTO) 3.5 10^3/uL (1.5-6.6); NEUTROPHILS % (AUTO) 60.4 %; RED BLOOD COUNT 4.44 10^6/uL (4.20-5.40); RED CELL DISTRIBUTION WIDTH 13.7 % (12.0-15.0); UNCORRECTED WHITE BLOOD COUNT 5.8 x10^3/uL; WHITE BLOOD COUNT 5.8 x10^3/uL (4.8-10.8)
[2017-06-08] MEDS ORDERED: DEXAMETHASONE 10 MG/ML VIAL IVP STA (11:22)
[2017-06-08] MEDS ORDERED: MECLIZINE 12.5 MG TABLET PO STA (11:22)
[2017-06-08 11:27] LABS: ALBUMIN/GLOBULIN RATIO 1.5 (1.0-2.2); BILIRUBIN,TOTAL 0.5 mg/dL (0.2-1.0); CALCIUM 9.4 mg/dL (8.5-10.3); CREATININE 0.8 mg/dL (0.4-1.0); POTASSIUM 3.6 mmol/L (3.5-5.0); TOTAL PROTEIN 7.1 g/dL (6.7-8.2)
[2017-06-08] MEDS ORDERED: MECLIZINE 12.5 MG TABLET PO ONE (11:31)
[2017-06-08] MEDS ORDERED: DEXAMETHASONE 10 MG/ML VIAL ONE (11:31)
[2017-06-08] MEDS ORDERED: ONDANSETRON 4 MG/2 ML VIAL IVP STA (12:35)
[2017-06-08] MEDS ORDERED: ONDANSETRON 4 MG/2 ML VIAL ONE (12:47)
[2017-06-08 13:35] LABS: BILIRUBIN,URINE NEGATIVE (NEGATIVE); PH,URINE 7.5 PH (5.0-7.5); UA CHARGE (STRIP ONLY) YES; UR CULTURE IF IND NOT INDICATED
[2017-06-08 16:43] VITALS: BP 130/84
== END 2017-06-08 16:44 | disposition home or self-care (01) ==
LOC: ED 09:00
DX: E05.90 Thyrotoxicosis, unspecified without thyrotoxic crisis or storm (principal); E86.0 Dehydration; H83.03 Labyrinthitis, bilateral; Z90.49 Acquired absence of other specified parts of digestive tract; I10 Essential (primary) hypertension
CPT/HCPCS: 36415; 80053; 81003; 83690; 84484; 85025; 96374; 96375; 99284; A9270; 81001; 87086

== ENCOUNTER 2017-07-02 08:08 | Outpatient (CLI) | payer MEDICAID ==
[~2017-07-02 08:08] MED LIST: GADOBUTROL 7.5 MMOL/7.5 ML VIAL ONE
[2017-07-02] MEDS ORDERED: GADOBUTROL 7.5 MMOL/7.5 ML VIAL IVP ONE (09:43)
--- NOTE | 2017-07-02 16:02 | MRI Report ---
EXAM: MR ABDOMEN WITH AND WITHOUT CONTRAST MR PELVIS WITH AND WITHOUT CONTRAST EXAM DATE: 07/02/2017 10:19 AM. CLINICAL HISTORY: ABNORMAL CT ABDOMEN, UNINTENTIONAL WEIGHT LOSS. COMPARISON: CT 04/16/2017. TECHNIQUE: Multiplanar breath-hold T1, T2, and DWI sequences obtained through the abdomen and pelvis on an MR scanner. Images obtained before and after administration of intravenous contrast. FINDINGS: Abdomen: Lung Bases: Unremarkable. Liver: No suspicious mass seen in the liver. There is a tiny, 6 mm, posterior right liver chronic hem angioma. Gallbladder: Removed. Pancreas: The pancreas appears normal with no mass or ductal dilatation. Spleen: The spleen appears normal. Kidneys: Tiny right renal cyst. Kidneys otherwise appear unremarkable without hydronephrosis. Adrenals: Normal appearance. Bowel: The small bowel and colon appear normal with no inflammation or obstruction. Moderate stool bu rden in a redundant colon. No definite masses seen. Retroperitoneum: The retroperitoneal structures appear normal with no mass or lymphadenopathy. Pelvic organs: Post hysterectomy with no adnexal masses seen. The bladder appears within normal limit s. IMPRESSION: 1. Features of chronic constipation. 2. No bowel obstruction or inflammatory process seen. 3. No etiology for unexplained weight loss identified. 4. Post cholecystectomy and hysterectomy. [facility] Referring Provider Line: [phone] SITE ID: [id number]
== END 2017-07-02 08:09 | disposition home or self-care (01) ==
LOC: DI 08:08
PROVIDERS: ATTEND Surgery
DX: R10.9 Unspecified abdominal pain (principal); Z90.49 Acquired absence of other specified parts of digestive tract; Z90.710 Acquired absence of both cervix and uterus
CPT/HCPCS: 74183; A9585

== ENCOUNTER 2017-07-02 08:11 | Outpatient (CLI) | payer MEDICAID ==
--- NOTE | 2017-07-02 16:02 | MRI Report ---
EXAM: MR ABDOMEN WITH AND WITHOUT CONTRAST MR PELVIS WITH AND WITHOUT CONTRAST EXAM DATE: 07/02/2017 10:19 AM. CLINICAL HISTORY: ABNORMAL CT ABDOMEN, UNINTENTIONAL WEIGHT LOSS. COMPARISON: CT 04/16/2017. TECHNIQUE: Multiplanar breath-hold T1, T2, and DWI sequences obtained through the abdomen and pelvis on an MR scanner. Images obtained before and after administration of intravenous contrast. FINDINGS: Abdomen: Lung Bases: Unremarkable. Liver: No suspicious mass seen in the liver. There is a tiny, 6 mm, posterior right liver chronic hem angioma. Gallbladder: Removed. Pancreas: The pancreas appears normal with no mass or ductal dilatation. Spleen: The spleen appears normal. Kidneys: Tiny right renal cyst. Kidneys otherwise appear unremarkable without hydronephrosis. Adrenals: Normal appearance. Bowel: The small bowel and colon appear normal with no inflammation or obstruction. Moderate stool bu rden in a redundant colon. No definite masses seen. Retroperitoneum: The retroperitoneal structures appear normal with no mass or lymphadenopathy. Pelvic organs: Post hysterectomy with no adnexal masses seen. The bladder appears within normal limit s. IMPRESSION: 1. Features of chronic constipation. 2. No bowel obstruction or inflammatory process seen. 3. No etiology for unexplained weight loss identified. 4. Post cholecystectomy and hysterectomy. [facility] Referring Provider Line: [phone] SITE ID: [id number]
== END 2017-07-02 08:12 | disposition home or self-care (01) ==
LOC: DI 08:11
PROVIDERS: ATTEND Internal Medicine
DX: R93.5 Abnormal findings on diagnostic imaging of other abdominal regions, including retroperitoneum (principal); R63.4 Abnormal weight loss
CPT/HCPCS: 72197

== ENCOUNTER 2018-03-03 11:27 | Emergency (ER) | payer MEDICAID ==
[2018-03-03 11:52] LABS: BASOPHILS % (AUTO) 0.6 %; EOSINOPHILS # (AUTO) 0.2 10^3/uL (0.0-0.7); EOSINOPHILS % (AUTO) 5.8 %; HGB - HEMOGLOBIN 12.4 g/dL (12.0-16.0); LYMPHOCYTES # (AUTO) 1.5 10^3/uL (1.5-3.5); LYMPHOCYTES % (AUTO) 33.9 %; MEAN CORPUSCULAR HEMOGLOBIN 28.9 pg (27.0-31.0); MEAN CORPUSCULAR HGB CONC 33.7 g/dL (32.0-36.0); MEAN CORPUSCULAR VOLUME 85.9 fL (81.0-99.0); MEAN PLATELET VOLUME 8.2 fL (7.9-10.8); MONOCYTES # (AUTO) 0.5 10^3/uL (0.0-1.0); MONOCYTES % (AUTO) 12.2 %; NEUTROPHILS % (AUTO) 47.5 %; PLT - PLATELET COUNT 231 10^3/uL (130-450); RED BLOOD COUNT 4.29 10^6/uL (4.20-5.40); RED CELL DISTRIBUTION WIDTH 13.9 % (12.0-15.0); WHITE BLOOD COUNT 4.3 x10^3/uL (4.8-10.8)
[2018-03-03 12:12] LABS: ALBUMIN 4.1 g/dL (3.2-5.5); ALBUMIN/GLOBULIN RATIO 1.4 (1.0-2.2); BILIRUBIN,TOTAL 0.6 mg/dL (0.2-1.0); CREATININE 0.8 mg/dL (0.4-1.0); TOTAL PROTEIN 7.1 g/dL (6.7-8.2)
--- NOTE | 2018-03-03 12:33 | XRAY Report ---
EXAM: CHEST RADIOGRAPHY EXAM DATE: 03/03/2018 12:02 PM. CLINICAL HISTORY: Chest pain. COMPARISON: None. TECHNIQUE: 2 views. FINDINGS: Lungs/Pleura: No focal opacities evident. No pleural effusion. No pneumothorax. Normal volumes. Mediastinum: Heart and mediastinal contours are unremarkable. Other: None. IMPRESSION: Normal 2-view chest radiography. [facility] Referring Provider Line: [phone] SITE ID: [id number]
--- NOTE | 2018-03-03 13:18 | ED Physician Documentation ---
PD HPI CHEST PAIN - Stated complaint Stated Complaint: HBP/CHEST TIGHTNESS - Chief complaint Chief Complaint: Cardiac - History obtained from History obtained from: Patient, Family - History of Present Illness Timing - onset: Today (53-year-old woman with history of hypertension and rheumatoid arthritis. She is maintained on atenolol and some immunologic's. Over the last couple weeks she has noted higher than normal blood pressures, usually around 160/100 at home in the mornings but it is better in the afternoon. Today she was a physical therapy because she is 8 weeks out from a right total hip replacement and she felt her heart racing on the treadmill and then laid down and had mild chest heaviness for about a minute that is since gone. She has no history of coronary disease. No pedal edema or calf pain. 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 HEENT: Tonsil/Adenoidectomy - Present Medications Home Medications: Ambulatory Orders Medication Instructions Recorded Confirmed Atenolol 25 mg PO BID 12/14/16 06/08/17 Gabapentin 600 mg PO QID 12/14/16 06/08/17 Abatacept [Orencia] mg SQ 03/03/18 Leflunomide [Arava] mg PO 03/03/18 - Allergies Allergies/Adverse Reactions: Allergies Allergy/AdvReac Type Severity Reaction Status Date / Time codeine Allergy Unknown Verified 03/03/18 11:35 - Social History Does the pt smoke?: No Smoking Status: Never smoker Does the pt drink ETOH?: No Does the pt have substance abuse?: No - Immunizations Immunizations are current?: Yes - POLST Patient has POLST: No PD ED PE NORMAL - Vitals Vital signs reviewed: Yes - General General: Alert and oriented X 3, No acute distress - HEENT HEENT: PERRL, EOMI - Neck Neck: Supple, no meningeal sign, No bony TTP - Cardiac Cardiac: RRR, No murmur - Respiratory Respiratory: No respiratory distress, Clear bilaterally - Abdomen Abdomen: Normal bowel sounds, Soft, Non tender - Back Back: No CVA TTP, No spinal TTP - Derm Derm: Normal color, Warm and dry - Extremities Extremities: No edema, No calf tenderness / cord - Neuro Neuro: Alert and oriented X 3, Normal speech Results - Vitals Vitals: Vital Signs - 24 hr 03/03/18 03/03/18 03/03/18 11:32 13:48 15:29 Temperature 36.5 C Heart Rate 86 88 78 Respiratory 16 14 13 Rate Blood Pressure 143/91 H 142/87 H 115/73 O2 Saturation 99 100 100 Oxygen O2 Source Room air - EKG (time done) 1141 Rate: Rate (enter#) (88) Rhythm: NSR [place]: Normal Intervals: Normal IA QRS: Normal Ischemia: Non specific changes (rsr prime v1/2) Computer interpretation: Agree with computer - Labs Labs: Laboratory Tests 03/03/18 03/03/18 03/03/18 11:49 11:49 11:49 WBC 4.3 L RBC 4.29 Hgb 12.4 Hct 36.9 L MCV 85.9 MCH 28.9 MCHC 33.7 RDW 13.9 Plt Count 231 MPV 8.2 Neut # 2.0 Lymph # 1.5 [place] # 0.5 Eos # 0.2 Baso # 0.0 Absolute Nucleated RBC 0.00 Nucleated RBC % 0.1 Sodium 136 Potassium 3.4 L Chloride 100 L Carbon Dioxide 30 Anion Gap 6.0 BUN 13 Creatinine 0.8 Estimated GFR (MDRD) 75 L Glucose 98 Calcium 9.0 Total Bilirubin 0.6 AST 23 ALT 14 Alkaline Phosphatase 63 Troponin I < 0.04 Total Protein 7.1 Albumin 4.1 Globulin 3.0 Albumin/Globulin Ratio 1.4 Lipase 35 03/03/18 14:42 WBC RBC Hgb Hct MCV MCH MCHC RDW Plt Count MPV Neut # Lymph # [place] # Eos # Baso # Absolute Nucleated RBC Nucleated RBC % Sodium Potassium Chloride Carbon Dioxide Anion Gap BUN Creatinine Estimated GFR (MDRD) Glucose Calcium Total Bilirubin AST ALT Alkaline Phosphatase Troponin I < 0.04 Total Protein Albumin Globulin Albumin/Globulin Ratio Lipase - Rads (name of study) CT PA Radiology: EMP read contemporaneously (negative) PD MEDICAL DECISION MAKING - ED course ED course: 53-year-old woman with history of rheumatoid arthritis and 8 weeks out from a hip replacement presents with a short episode of chest pain and palpitations while in physical therapy today. Her diagnostics are negative here including delta troponin. PE was considered given her postsurgical state but there is no evidence of this on CT. Departure - Departure Disposition: 01 Home, Self Care Clinical Impression: Chest pain Qualifiers: Chest pain type: unspecified Qualified Code(s): R07.9 - Chest pain, unspecified Condition: Good Record reviewed to determine appropriate education?: Yes Instructions: ED Chest Pain NonCardiac Comments: Return immediately for further episodes of chest pain. Follow-up with your doctor and discuss stress testing. Also possible changes in blood pressure medications. Discharge Date/Time: 03/03/18 15:29
[2018-03-03] MEDS ORDERED: IOPAMIDOL-300 100 ML VIAL ONE (13:34)
[2018-03-03] MEDS ORDERED: IOPAMIDOL-300 100 ML VIAL IVP ONE (14:29)
--- NOTE | 2018-03-03 14:53 | CT Report ---
EXAM: CT ANGIOGRAM CHEST EXAM DATE: 03/03/2018 02:25 PM. CLINICAL HISTORY: Chest pain, high heart rate status post THR. COMPARISON: None. TECHNIQUE: Routine helical imaging was performed through the chest in the pulmonary arterial phase. I V Contrast: 80 ML Isovue 300. Reconstructions: Coronal 3-D MIP reconstructions.Sagittal and coronal. In accordance with CT protocol optimization, one or more of the following dose reduction techniques w ere utilized for this exam: automated exposure control, adjustment of mA and/or KV based on patient s ize, or use of iterative reconstructive technique. FINDINGS: Pulmonary Arteries: Diagnostic quality: Adequate through the segmental arteries. No evidence for acute or chronic pulmona ry emboli. RV/LV is within normal limits. There is no interventricular septal bowing. There is no reflux of cont rast material in the IVC. Lungs/Pleura: No consolidation, nodules, or edema. No effusions or pneumothorax. Mediastinum: No cardiac enlargement or adenopathy. Thoracic Aorta: No thoracic aortic aneurysm or dissection. Upper Abdomen: Status post cholecystectomy. No acute findings. Other: No acute bone findings. IMPRESSION: No evidence for pulmonary emboli. No acute findings are seen. [facility] Referring Provider Line: [phone] SITE ID: [id number]
--- NOTE | 2018-03-03 14:53 | CT Preliminary Report ---
Exam: CT CHEST ANGIO (PE) IMPRESSION: No evidence for pulmonary emboli. No acute findings are seen. [facility] SITE ID: [id number]
[2018-03-03 15:32] VITALS: BP 115/73
== END 2018-03-03 15:29 | disposition home or self-care (01) ==
LOC: EDSEX → ED 11:27
DX: R07.9 Chest pain, unspecified (principal); R00.2 Palpitations; Z96.641 Presence of right artificial hip joint; I10 Essential (primary) hypertension; M06.9 Rheumatoid arthritis, unspecified; K21.9 Gastro-esophageal reflux disease without esophagitis
CPT/HCPCS: 36415; 71046; 71275; 80053; 83690; 84484; 85025; 93005; 99283; 99284; Q9967

== ENCOUNTER 2018-03-24 10:48 | Outpatient (CLI) | payer MEDICAID | END 2018-03-24 10:49 | disposition critical access hospital (66) | LOC: EMS 10:48 | PROVIDERS: ATTEND Surgery | DX: M25.551 Pain in right hip (principal); Z96.641 Presence of right artificial hip joint | CPT/HCPCS: A0425; A0427 ==

== ENCOUNTER 2018-03-24 11:30 | Emergency (ER) | payer MEDICAID ==
[2018-03-24] MEDS ORDERED: fentaNYL 100 MCG/2 ML VIAL IVP STA ×2 (11:47→13:06)
[2018-03-24] MEDS ORDERED: fentaNYL 100 MCG/2 ML VIAL ONE (11:59)
--- NOTE | 2018-03-24 12:27 | XRAY Report ---
Procedure Date: 03/24/2018 Accession Number: [id number] / [id number] Procedure: XR - Hip w/Pelvis 2-3V RT CPT Code: FULL RESULT: EXAM: RIGHT HIP AND PELVIS RADIOGRAPHY EXAM DATE: 03/24/2018 12:07 PM. HISTORY: Right hip dislocation after lifting today. COMPARISONS: 11/26/2016. TECHNIQUE: 2 views including AP pelvis. FINDINGS: Interval right total hip arthroplasty and superior lateral dislocation of prosthetic femoral head relative to acetabular component. No fracture or prosthetic loosening. IMPRESSION: 1. Superior lateral dislocation of prosthetic right femoral head. 2. No fracture. [facility]
[2018-03-24] MEDS ORDERED: PROPOFOL 200 MG/20 ML VIAL IVP ONE (12:36)
[2018-03-24] MEDS ORDERED: MIDAZOLAM 2 MG/2 ML VIAL ONE (12:36)
--- NOTE | 2018-03-24 12:52 | ED Physician Documentation ---
PD HPI LOWER EXT INJURY - Stated complaint Stated Complaint: HIP DISLOCATED - Chief complaint Chief Complaint: General - History obtained from History obtained from: Patient - History of Present Illness PD HPI LOW EXT INJURY LOCATION: Right, Hip Type of injury: Other (Dislocation) Where injury occurred: Home Timing - onset: How many minutes ago (Just prior to arrival.) Contributing factors: Prior ortho surgery (3 months S/P right THR.) Similar symptoms before: Has not had sx before - Treatment prior to arrival Treatment prior to arrival: Fentanyl 150 mcg IV administered by medics. - Additional information Additional information: The patient is a 53-year-old female who is 3 months status post right total hip replacement, who presents with pain in her right hip after squatting down this morning. She felt her hip dislocate, and has been unable to move her right leg since that time. She arrives via ambulance, and medics have administered 150 g fentanyl IV. She has no prior history of hip dislocation. Review of Systems Constitutional: denies: Fever Cardiac: denies: Chest pain / pressure Respiratory: denies: Dyspnea, Cough GI: denies: Abdominal Pain, Nausea, Vomiting Musculoskeletal: reports: Joint pain (right hip) Neurologic: denies: Focal weakness, Numbness, Headache PD PAST MEDICAL HISTORY - Past Medical History Past Medical History: Yes Cardiovascular: Hypertension, Other Respiratory: None Endocrine/Autoimmune: None GI: GERD : None HEENT: None Psych: None Musculoskeletal: Rheumatoid arthritis Derm: None - Past Surgical History Past Surgical History: Yes General: Cholecystectomy, Appendectomy 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 HEENT: Tonsil/Adenoidectomy - Present Medications Home Medications: Ambulatory Orders Medication Instructions Recorded Confirmed Atenolol 25 mg PO BID 12/14/16 06/08/17 Gabapentin 600 mg PO QID 12/14/16 06/08/17 Abatacept [Orencia] mg SQ 03/03/18 Leflunomide [Arava] mg PO 03/03/18 Omeprazole [PriLOSEC] 20 mg PO DAILY 03/24/18 03/24/18 - Allergies Allergies/Adverse Reactions: Allergies Allergy/AdvReac Type Severity Reaction Status Date / Time codeine Allergy Unknown Verified 03/24/18 12:08 - Social History Does the pt smoke?: No Smoking Status: Never smoker Does the pt drink ETOH?: No Does the pt have substance abuse?: No - Immunizations Immunizations are current?: Yes - POLST Patient has POLST: No PD ED PE NORMAL - Vitals Vital signs reviewed: Yes (hypertensive) - General General: Alert and oriented X 3, Well developed/nourished - HEENT HEENT: Atraumatic - Cardiac Cardiac: RRR - Respiratory Respiratory: No respiratory distress, Clear bilaterally - Abdomen Abdomen: Soft, Non tender - Back Back: No spinal TTP - Derm Derm: No rash - Extremities Extremities: No edema, No calf tenderness / cord, Other (The right leg is internally rotated and shortened, consistent with right hip dislocation. Distal neurovascular is intact.) - Neuro Neuro: Alert and oriented X 3, No motor deficit, No sensory deficit Results - Vitals Vitals: Oxygen O2 Source Room air - Rads (name of study) Right hip Radiology: Prelim report reviewed, EMP read contemporaneously, See rad report ( Superolateral dislocation of right femoral head. No fracture.) Post reduction hip Radiology: Prelim report reviewed, EMP read contemporaneously, See rad report ( Right hip joint alignment is anatomic following reduction.) Procedures - Reduction Body part reduced: Right, Hip, prosthetic Fracture or dislocation: Dislocation Anesthesia: Fentanyl, Propofol, Versed Hip reduction technique: Allis - flex/pull/rotate Reduction aftercare: NV intact, Xray confirms reduction, Alignment improved, Patient tolerated well PD MEDICAL DECISION MAKING - ED course Complexity details: reviewed results, re-evaluated patient, considered differential, d/w patient, d/w family ED course: The patient's presentation is significant for right prosthetic hip dislocation. There is no evidence of fracture on radiographic examination. Treatment in the emergency department included administration of fentanyl 100 g IV followed by an additional 50 g. After explaining the risks and benefits of procedural sedation to the patient and her , the right hip was reduced with the benefit of sedation using 1 mg Versed IV and 70 mg propofol IV. Respiratory therapist and nurse were in attendance in addition to myself. After reduction of the dislocated hip, the patient recovered from sedation without any complications. Postreduction x-ray reveals anatomic alignment. I discussed with her and her partner the pathophysiology of prosthetic hip dislocation, maneuvers to avoid, as well as potentially worrisome signs or symptoms that should prompt reevaluation in the emergency department. - Sepsis Event Vital Signs: Oxygen O2 Source Room air Departure - Departure Disposition: Home, Self Care Clinical Impression: Hip dislocation, right Qualifiers: Encounter type: initial encounter Qualified Code(s): S73.004A - Unspecified dislocation of right hip, initial encounter Condition: Stable Instructions: ED Hip Replace Dislocation Reduc Comments: You can use Tylenol or ibuprofen if needed for discomfort. Follow up with your orthopedic surgeon if you have persistent pain in your hip. Return to the emergency department if you develop recurrent dislocation, or otherwise worsening symptoms. Discharge Date/Time: 03/24/18 13:51
[2018-03-24 12:59] VITALS: BP 109/74
[2018-03-24] MEDS ORDERED: PROPOFOL 200 MG/20 ML VIAL IVP STA (13:07)
[2018-03-24] MEDS ORDERED: MIDAZOLAM 2 MG/2 ML VIAL IVP STA (13:07)
--- NOTE | 2018-03-24 13:51 | XRAY Report ---
Procedure Date: 03/24/2018 Accession Number: [id number] / [id number] Procedure: XR - Pelvis 1 View CPT Code: FULL RESULT: EXAM: PELVIS RADIOGRAPHY EXAM DATE: 03/24/2018 01:06 PM. CLINICAL HISTORY: Post reduction right hip. COMPARISON: Earlier the same day at 1153 hrs.. TECHNIQUE: 1 view. FINDINGS: Bones: No acute fracture. Right hip arthroplasty in place. Joints: Alignment is anatomic following reduction. Soft Tissues: No significant abnormality. IMPRESSION: Right hip joint alignment is anatomic following reduction. RADIA
== END 2018-03-24 13:51 | disposition home or self-care (01) ==
LOC: ED 11:30
DX: S73.004A Unspecified dislocation of right hip, initial encounter (principal); Y93.89 Activity, other specified; Y92.009 Unspecified place in unspecified non-institutional (private) residence as the place of occurrence of the external cause; Z96.641 Presence of right artificial hip joint; I10 Essential (primary) hypertension
CPT/HCPCS: 27266; 72170; 94770; 99152; 99283

== ENCOUNTER 2019-01-05 09:58 | Outpatient (CLI) | payer MEDICAID | END 2019-01-05 09:59 | disposition short-term general hospital (02) | LOC: EMS 09:58 | PROVIDERS: ATTEND Surgery | DX: M79.604 Pain in right leg (principal); T14.8XXA Other injury of unspecified body region, initial encounter | CPT/HCPCS: A0425; A0427; A0999 ==

== ENCOUNTER 2019-07-11 11:36 | Emergency (ER) | payer MEDICAID ==
--- NOTE | 2019-07-11 12:31 | ED Physician Documentation ---
History of Present Illness - Stated complaint Stated Complaint: DIFFICULTY SWALLOWING - Chief complaint Chief Complaint: Heent - History obtained from History obtained from: Patient - History of Present Illness Timing: Other (54-year-old woman with history of stable rheumatoid arthritis presents with 2 months of worsening symptoms. It started with left-sided facial pain developed into tingling of the face on the left not involving the forehead, now has difficulty swallowing and numbness on the left side of her throat she thinks and feeling like something stuck in her throat with a cough that is r elated to her throat not her chest. She denies fevers, chills, congestion, sinus drainage. She saw her physician who is a resident and felt she might have TMJ and referred her to ENT but has not been able to see them yet.) Review of Systems Constitutional: denies: Fever, Chills, Myalgias, Fatigue Ears: reports: Ear pain Nose: denies: Rhinorrhea / runny nose, Congestion Throat: reports: Sore throat Respiratory: reports: Cough. 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 HEENT: Tonsil/Adenoidectomy - Present Medications Home Medications: Ambulatory Orders Medication Instructions Recorded Confirmed Atenolol 25 mg PO BID 12/14/16 06/08/17 Gabapentin 600 mg PO QID 12/14/16 06/08/17 Abatacept [Orencia] mg SQ 03/03/18 Leflunomide [Arava] mg PO 03/03/18 Omeprazole [PriLOSEC] 20 mg PO DAILY 03/24/18 03/24/18 - Allergies Allergies/Adverse Reactions: Allergies Allergy/AdvReac Type Severity Reaction Status Date / Time codeine Allergy Unknown Verified 07/11/19 11:52 - Social History Does the pt smoke?: No Smoking Status: Never smoker Does the pt drink ETOH?: No Does the pt have substance abuse?: No - Immunizations Immunizations are current?: Yes - POLST Patient has POLST: No PD ED PE NORMAL - Vitals Vital signs reviewed: Yes - General General: Alert and oriented X 3, No acute distress - HEENT HEENT: PERRL, EOMI, Other (She has mild asymmetry of the soft palate on palate raise. Otherwise the visualized portions of the oropharynx are normal. She has partial numbness of the lower left side of face not involving the forehead. Smile is slightly asymmetric. Extra ocular movements are normal.) - Neck Neck: Supple, no meningeal sign, No bony TTP - Neuro Neuro: Alert and oriented X 3, Normal speech Eye Opening: Spontaneous Motor: Obeys Commands Verbal: Oriented GCS Score: 15 Results - Vitals Vitals: Vital Signs - 24 hr 07/11/19 11:50 Temperature 36.7 C Heart Rate 91 Respiratory 16 Rate Blood Pressure 100/82 H O2 Saturation 100 Oxygen O2 Source Room air - Labs Labs: Laboratory Tests 07/11/19 07/11/19 12:45 12:45 WBC 7.2 RBC 4.69 Hgb 12.2 Hct 38.7 MCV 82.5 MCH 26.0 L MCHC 31.5 L RDW 16.0 H Plt Count 241 MPV 11.4 H Neut # (Auto) 4.5 Lymph # (Auto) 1.8 [place] # (Auto) 0.5 Eos # (Auto) 0.3 Baso # (Auto) 0.0 Absolute Nucleated RBC 0.00 Nucleated RBC % 0.0 Sodium 139 Potassium 3.8 Chloride 100 L Carbon Dioxide 26 Anion Gap 13.0 BUN 20 Creatinine 0.9 Estimated GFR (MDRD) 65 L Glucose 122 H Calcium 9.8 Total Bilirubin 0.4 AST 19 ALT 11 Alkaline Phosphatase 61 Total Protein 7.7 Albumin 4.5 Globulin 3.2 Albumin/Globulin Ratio 1.4 Lipase 38 - Rads (name of study) CT head and neck (neck w contrast) Radiology: EMP read contemporaneously (Thyroid nodules, otherwise negative) PD MEDICAL DECISION MAKING - ED course ED course: 54-year-old woman presents with some odd symptoms with some cranial neuropathies. As such CT imaging of the head and neck were done to evaluate for mass lesion and they were negative. ENT follow-up was advised. Departure - Departure Disposition: 01 Home, Self Care Clinical Impression: Cranial neuropathies, multiple, Facial pain Condition: Good Record reviewed to determine appropriate education?: Yes Instructions: ED Neuropathy Peripheral Comments: The CT of the neck with contrast and head show only small thyroid nodules which would not explain your symptoms nor do they need specific followup. You should however followup with ENT as you are already trying to arrange.
[2019-07-11 12:53] LABS: BASOPHILS % (AUTO) 0.6 %; EOSINOPHILS # (AUTO) 0.3 10^3/uL (0.0-0.7); EOSINOPHILS % (AUTO) 3.9 %; HGB - HEMOGLOBIN 12.2 g/dL (12.0-16.0); LYMPHOCYTES # (AUTO) 1.8 10^3/uL (1.5-3.5); LYMPHOCYTES % (AUTO) 25.6 %; MEAN CORPUSCULAR HGB CONC 31.5 g/dL (32.0-36.0); MEAN CORPUSCULAR VOLUME 82.5 fL (81.0-99.0); MEAN PLATELET VOLUME 11.4 fL (7.9-10.8); MONOCYTES # (AUTO) 0.5 10^3/uL (0.0-1.0); MONOCYTES % (AUTO) 6.4 %; NEUTROPHILS # (AUTO) 4.5 10^3/uL (1.5-6.6); NEUTROPHILS % (AUTO) 63.2 %; PLT - PLATELET COUNT 241 10^3/uL (130-450); RED BLOOD COUNT 4.69 10^6/uL (4.20-5.40); WHITE BLOOD COUNT 7.2 x10^3/uL (4.8-10.8)
[2019-07-11] MEDS ORDERED: IOVERSOL 320 100 ML VIAL IVP ONE ×3 (13:00→13:31)
[2019-07-11 13:05] LABS: ALBUMIN 4.5 g/dL (3.2-5.5); ALBUMIN/GLOBULIN RATIO 1.4 (1.0-2.2); BILIRUBIN,TOTAL 0.4 mg/dL (0.2-1.0); CALCIUM 9.8 mg/dL (8.5-10.3); CREATININE 0.9 mg/dL (0.4-1.0); TOTAL PROTEIN 7.7 g/dL (6.7-8.2)
--- NOTE | 2019-07-11 13:47 | CT Report ---
Reason: L cranial neuropathies and L facial pain Procedure Date: 07/11/2019 Accession Number: [id number] / [id number] Procedure: CT - HEAD WO CPT Code: FULL RESULT: EXAM: CT HEAD EXAM DATE: 07/11/2019 01:29 PM. CLINICAL HISTORY: Left cranial neuropathies and left facial pain. COMPARISON: HEAD W/O 06/06/2017 1:48 PM. TECHNIQUE: Multiaxial CT images were obtained from the foramen magnum to the vertex. Reformats: Sagittal and coronal. IV contrast: None. In accordance with CT protocol optimization, one or more of the following dose reduction techniques were utilized for this exam: automated exposure control, adjustment of mA and/or KV based on patient size, or use of iterative reconstructive technique. FINDINGS: Parenchyma: No intraparenchymal hemorrhage. No evidence of mass, midline shift, or CT findings of infarction. Arteaga-white differentiation is distinct. Extraaxial Spaces: Normal for age. No subdural or epidural collections identified. Ventricles: Normal in size and position. Sinuses and Orbits: Imaged paranasal sinuses, orbits, and mastoids show no significant abnormality. Bones: No evidence of fracture or calvarial defect. Other: None. IMPRESSION: Normal unenhanced head CT. No CT findings to explain symptoms. RADIA
--- NOTE | 2019-07-11 13:51 | CT Report ---
Reason: L cranial neuropathies and L facial pain Procedure Date: 07/11/2019 Accession Number: [id number] / [id number] Procedure: CT - SOFT TISSUE NECK W CPT Code: FULL RESULT: EXAM: CT SOFT TISSUE NECK WITH CONTRAST. EXAM DATE: 07/11/2019 01:29 PM. HISTORY: 54-year-old female, left cranial neuropathies and left facial pain. COMPARISONS: CT soft tissue neck 06/06/2017 TECHNIQUE: Routine soft tissue neck CT protocol with contrast. Reconstructions: Coronal and sagittal. IV contrast: OPTI 320 80ML. In accordance with CT protocol optimization, one or more of the following dose reduction techniques were utilized for this exam: automated exposure control, adjustment of mA and/or KV based on patient size, or use of iterative reconstructive technique. FINDINGS: Visualized Intracranial Contents: Unremarkable. Orbits: Symmetric and unremarkable. Sinuses: Visualized paranasal sinuses and mastoid air cells are clear. Oral cavity: The visualized oral cavity is unremarkable. The floor of the mouth is symmetric. Pharynx: Pharyngeal mucosa is unremarkable. The infratemporal fossa, parapharyngeal spaces, and retropharyngeal space are unremarkable. The base of the tongue is symmetric and unremarkable. The airway is patent. Larynx: Larynx and supraglottic airway are patent without mass lesion. Vocal cords are symmetric. The visualized trachea is unremarkable. Parotid and Submandibular Glands: Symmetric and unremarkable. Lymph Nodes: No enlarged lymph nodes are identified in the cervical, supraclavicular, and visualized superior mediastinal regions. Soft tissues: Soft tissues are unremarkable. No mass lesion or abnormal enhancement. Vascular Structures: Unremarkable. Thyroid Gland: There is a 1.3 cm hypodense lesion in the right thyroid lobe (series 2 image 101) and a 9 mm lesion within the inferior left thyroid lobe (series 4 image 71), likely present on the prior study as well although better visualized on the current one. Given size below 1.5 cm, no specific follow-up suggested. Lung: The visualized lung apices are clear. Bones: No evidence of acute fracture or malalignment. There are mild multilevel degenerative changes. Other: None. IMPRESSION: 1. There is a 1.3 cm hypodense lesion in the right thyroid lobe (series 2 image 101) and a 9 mm lesion within the inferior left thyroid lobe (series 4 image 71), likely present on the prior study as well although better visualized on the current one. Given size below 1.5 cm, no specific follow-up suggested. 2. Otherwise no evidence of soft tissue mass, adenopathy, abscess, or definite mucosal abnormality. RADIA
[2019-07-11 14:11] VITALS: BP 116/71
== END 2019-07-11 14:11 | disposition home or self-care (01) ==
LOC: ED 11:36
DX: G51.9 Disorder of facial nerve, unspecified (principal); G50.1 Atypical facial pain; M06.9 Rheumatoid arthritis, unspecified; E04.2 Nontoxic multinodular goiter; I10 Essential (primary) hypertension
CPT/HCPCS: 36415; 70450; 70491; 80053; 83690; 85025; 99283; 99284; Q9967

== ENCOUNTER 2019-10-22 00:39 | Outpatient (CLI) | payer MEDICAID | END 2019-10-22 00:40 | disposition critical access hospital (66) | LOC: EMS 00:39 | PROVIDERS: ATTEND Surgery | DX: R51 Headache (principal); R11.0 Nausea | CPT/HCPCS: A0425; A0427; A0999 ==

== ENCOUNTER 2019-10-22 01:03 | Emergency (ER) | payer MEDICAID ==
--- NOTE | 2019-10-22 01:07 | ED Physician Documentation ---
PD HPI HEADACHE - Stated complaint Stated Complaint: L SIDE HEAD PAIN - History obtained from History obtained from: Patient - History of Present Illness Timing - onset: Last night (onet of left headache with nausea and light sensitivity last evening. Has had migraines remotely, with last one about a year ago. She has been having 1 or 2 months of left sided facial pain in the jaw and cheek. She had been seen by her primary care and also referred to ENT with evaluation by them. No diagnosis currently. They had not prescribed any medications for her other than NSAIDs.) Timing - onset during: Rest Timing - details: Gradual onset, Still present Worst headache ever?: No: Worst headache ever? (She states her current headache is feeling similar to migraine she has had in the past.) Location: Left Quality: Throbbing, Aching Associated symptoms: Nausea, Vision changes. No: Fever, Stiff neck, Weakness, Syncope Improved by: Dark room Worsened by: Light Contributing factors: No: Hypertension, Recent illness, Trauma Similar symptoms before: Diagnosis (The current left-sided headache is similar to migraine she has had in the past. However the ongoing left facial pain is different than her migraines but has been more consistent for now 1 or 2 months.) Recently seen: Clinic (ENT, Without a clear diagnosis for her facial pain. The facial pain she has had is been fairly consistent with intermittent sharp jabs of pain along the mandible and cheek. No rash or redness along the way. No noted injury. She denies any weakness or sensory changes in the face.) Review of Systems Constitutional: denies: Fever, Chills Nose: denies: Rhinorrhea / runny nose, Congestion Throat: denies: Sore throat Respiratory: denies: Cough Skin: denies: Rash, Lesions Musculoskeletal: denies: Neck pain, Back pain PD PAST MEDICAL HISTORY - Past Medical History Cardiovascular: None Respiratory: None Neuro: Migraines Endocrine/Autoimmune: None - Present Medications Home Medications: Ambulatory Orders Medication Instructions Recorded Confirmed Gabapentin 300 mg PO TID 10/22/19 10/22/19 HYDROmorphone [Dilaudid] 2 mg PO Q6HR PRN 10/22/19 10/22/19 Hydrocodone/Acetaminophen [[facility] 1 each PO Q6H PRN #20 tablet 10/22/19 5-325 Tablet] Ondansetron Odt [Zofran] 4 mg TL Q6H PRN #15 tablet 10/22/19 SUMAtriptan succinate [Sumatriptan 50 mg PO DAILY PRN #10 tablet 10/22/19 Succinate] carBAMazepine [TEGretol] 100 mg PO BID #30 tablet 10/22/19 dexAMETHasone [Decadron] 4 mg PO DAILY #7 tablet 10/22/19 - Allergies Allergies/Adverse Reactions: Allergies Allergy/AdvReac Type Severity Reaction Status Date / Time codeine Allergy Edema Verified 10/22/19 01:21 PD ED PE NORMAL - Vitals Vital signs reviewed: Yes - General General: Alert and oriented X 3, Well developed/nourished, Other (She does appear uncomfortable due to her headache and also winces intermittently with the facial pain. She does have light sensitivity.) - HEENT HEENT: Ears normal, Pharynx benign, Dentition benign - Neck Neck: Supple, no meningeal sign, No adenopathy - Cardiac Cardiac: RRR, No murmur - Respiratory Respiratory: Clear bilaterally - Abdomen Abdomen: Soft, Non tender - Derm Derm: Normal color, Warm and dry - Neuro Neuro: Alert and oriented X 3, government clerk 2-12 intact, No motor deficit, No sensory deficit, Normal speech, Other Eye Opening: Spontaneous Motor: Obeys Commands Verbal: Oriented GCS Score: 15 Results - Vitals Vitals: Vital Signs - 24 hr 10/22/19 10/22/19 10/22/19 01:15 01:45 02:35 Temperature 37 C 36.5 C Heart Rate 89 89 87 Respiratory 16 16 15 Rate Blood Pressure 145/83 H 134/78 H 113/61 O2 Saturation 100 99 97 Oxygen O2 Source Room air - Labs Labs: Laboratory Tests 10/22/19 10/22/19 10/22/19 01:20 01:20 01:20 WBC 6.9 RBC 4.24 Hgb 11.1 L Hct 35.0 L MCV 82.5 MCH 26.2 L MCHC 31.7 L RDW 14.2 Plt Count 249 MPV 10.3 Neut # (Auto) 4.9 Lymph # (Auto) 1.4 L [place] # (Auto) 0.5 Eos # (Auto) 0.1 Baso # (Auto) 0.0 Absolute Nucleated RBC 0.00 Nucleated RBC % 0.0 ESR 6 Sodium 137 Potassium 3.2 L Chloride 101 Carbon Dioxide 26 Anion Gap 10.0 BUN 15 Creatinine 0.7 Estimated GFR (MDRD) 87 L Glucose 110 H Calcium 9.4 Magnesium 2.0 Total Bilirubin 0.3 AST 19 ALT 12 Alkaline Phosphatase 53 Total Protein 7.2 Albumin 4.3 Globulin 2.9 Albumin/Globulin Ratio 1.5 Lipase 36 Ethyl Alcohol < 5.0 PD MEDICAL DECISION MAKING - ED course Complexity details: re-evaluated patient (She is improved quite a bit with IV fluids and medications targeted at migraine. We discussed the facial pain she has been having. There is no diagnosis clearly at this point. 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 We could empirically try treating with anti-inflammatories and steroids. I discussed with her potentially trying Tegretol to see if it would help with the neuralgia. She is in favor of trying this at this point. She is given medication to use for her migraine should those recur she states she had had improvement in the past with sumatriptan just does not have any current prescriptions.), considered differential, d/w patient Departure - Departure Disposition: 01 Home, Self Care Clinical Impression: Acute facial pain Migraine Qualifiers: Migraine type: unspecified Status migrainosus presence: without status migrainosus Intractability: not intractable Qualified Code(s): G43.909 - Migraine, unspecified, not intractable, without status migrainosus Condition: Stable Record reviewed to determine appropriate education?: Yes Instructions: ED Headache Migraine, ED Neuralgia Trigeminal Prescriptions: carBAMazepine [TEGretol] 100 mg PO BID #30 tablet dexAMETHasone [Decadron] 4 mg PO DAILY #7 tablet Hydrocodone/Acetaminophen [[facility] 5-325 Tablet] 1 each PO Q6H PRN #20 tablet PRN Reason: Pain Ondansetron Odt [Zofran] 4 mg TL Q6H PRN #15 tablet PRN Reason: Nausea / Vomiting SUMAtriptan succinate [Sumatriptan Succinate] 50 mg PO DAILY PRN #10 tablet PRN Reason: Migraine Comments: For the severe headache/migraine, you can use ondansetron nausea medicine along with an ibuprofen or naproxen and take those with sumatriptan migraine medicine. These would be for the migraine type headaches. It would be as needed episodic use. The facial pain you have been having sounds like it may be an irritation of the facial nerve called the trigeminal nerve. We can try some anti-inflammatories of Decadron steroid daily for a week. Use Tylenol or hydrocodone if needed for pain. Try carbamazepine medication to see if it decreases it over the next several days to a week or so. Start with 100 mg at night for a few days and if doing okay with that, to increase to twice daily. Follow-up with your primary care in the next week or so for reevaluation and further treatment ideas. Discharge Date/Time: 10/22/19 02:50
[2019-10-22] MEDS ORDERED: PROCHLORPERAZINE 10 MG/2 ML VIAL IVP STA (01:13)
[2019-10-22] MEDS ORDERED: SODIUM CHLORIDE 0.9% 1,000 ML IV ONE (01:13)
[2019-10-22] MEDS ORDERED: DEXAMETHASONE 10 MG/ML VIAL IVP STA (01:13)
[2019-10-22] MEDS ORDERED: KETOROLAC 30 MG/ML VIAL IVP STA (01:13)
[2019-10-22 01:40] LABS: BASOPHILS % (AUTO) 0.4 %; EOSINOPHILS # (AUTO) 0.1 10^3/uL (0.0-0.7); EOSINOPHILS % (AUTO) 1.6 %; HGB - HEMOGLOBIN 11.1 g/dL (12.0-16.0); LYMPHOCYTES # (AUTO) 1.4 10^3/uL (1.5-3.5); LYMPHOCYTES % (AUTO) 19.7 %; MEAN CORPUSCULAR HEMOGLOBIN 26.2 pg (27.0-31.0); MEAN CORPUSCULAR HGB CONC 31.7 g/dL (32.0-36.0); MEAN CORPUSCULAR VOLUME 82.5 fL (81.0-99.0); MEAN PLATELET VOLUME 10.3 fL (7.9-10.8); MONOCYTES # (AUTO) 0.5 10^3/uL (0.0-1.0); NEUTROPHILS # (AUTO) 4.9 10^3/uL (1.5-6.6); NEUTROPHILS % (AUTO) 70.9 %; PLT - PLATELET COUNT 249 10^3/uL (130-450); RED BLOOD COUNT 4.24 10^6/uL (4.20-5.40); RED CELL DISTRIBUTION WIDTH 14.2 % (12.0-15.0); WHITE BLOOD COUNT 6.9 x10^3/uL (4.8-10.8)
[2019-10-22 01:50] LABS: ALBUMIN 4.3 g/dL (3.2-5.5); ALBUMIN/GLOBULIN RATIO 1.5 (1.0-2.2); ALKALINE PHOSPHATASE 53 IU/L (42-121); ALT ALANINE AMINOTRANSFERASE 12 IU/L (10-60); AST ASPARTATE AMINOTRANSFERASE 19 IU/L (10-42); BILIRUBIN,TOTAL 0.3 mg/dL (0.2-1.0); BUN - BLOOD UREA NITROGEN 15 mg/dL (6-20); CALCIUM 9.4 mg/dL (8.5-10.3); CARBON DIOXIDE - CO2 26 mmol/L (21-32); CHLORIDE 101 mmol/L (101-111); CREATININE 0.7 mg/dL (0.4-1.0); GFR - MDRD 87 (>89); GLUCOSE 110 mg/dL (70-100); LIPASE 36 U/L (22-51); SODIUM 137 mmol/L (135-145); TOTAL PROTEIN 7.2 g/dL (6.7-8.2)
[2019-10-22 02:57] VITALS: BP 113/61
== END 2019-10-22 02:50 | disposition home or self-care (01) ==
LOC: ED 01:03 → MERGE 01:03 → ED 02:50
DX: G50.1 Atypical facial pain (principal); G43.909 Migraine, unspecified, not intractable, without status migrainosus
CPT/HCPCS: 36415; 80053; 80320; 83690; 83735; 85025; 85651; 96361; 96374; 96375; 99284

== ENCOUNTER 2020-01-02 08:00 | Outpatient (CLI) | payer OTHER | END 2020-01-02 23:59 | disposition home or self-care (01) | LOC: COV 08:00 | PROVIDERS: ATTEND Family Medicine | DX: R05 Cough (principal) | CPT/HCPCS: 81599 ==

== ENCOUNTER 2020-03-14 08:00 | Outpatient (CLI) | payer BC, OTHER | END 2020-03-14 23:59 | disposition home or self-care (01) | LOC: LAB.R 08:00 | PROVIDERS: ATTEND Physician Assistant Medical | DX: N30.90 Cystitis, unspecified without hematuria (principal) | CPT/HCPCS: 87086 ==

== ENCOUNTER 2020-03-15 08:59 | Outpatient (CLI) | payer BC, OTHER | END 2020-03-15 09:00 | disposition home or self-care (01) | LOC: LAB 08:59 | PROVIDERS: ATTEND Physician Assistant Medical | DX: N30.90 Cystitis, unspecified without hematuria (principal) | CPT/HCPCS: 87086 ==

== ENCOUNTER 2020-04-10 09:48 | Outpatient (CLI) | payer BC ==
--- NOTE | 2020-04-18 11:39 | Mammography Report ---
BILATERAL DIGITAL SCREENING MAMMOGRAM 3D/2D: 04/10/2020 CLINICAL: Routine screening. No prior exams were available for comparison. The tissue of both breasts is heterogeneously dense. T his may lower the sensitivity of mammography. There are grouped fine dystrophic heterogeneous calcifications in the left breast at 1 o'clock middle depth. There is architectural distortion associated with the calcifications. No other significant masses, calcifications, or other findings are seen in either breast. IMPRESSION: INCOMPLETE: NEEDS ADDITIONAL IMAGING EVALUATION The grouped fine dystrophic heterogeneous calcifications in the left breast are indeterminate. Addit ional views with possible ultrasound are recommended. This exam was interpreted at Station ID: [id number]. NOTE: For mammograms, a report in lay terms will be sent to the patient. Approximately 15% of breast malignancies will not be visualized mammographically. In the management of a palpable breast mass, a negative mammogram must not discourage biopsy of a clinically suspicious lesion. Electronically Signed By: Heidi love/:04/17/2020 17:57:57 ACR BI-RADS Category 0: Incomplete 3340F PARENCHYMAL PATTERN: (D) - The breast(s) demonstrate(s) heterogeneously dense fibroglandular oscar barnett. BI-RADS CATEGORY: (0) - 0 Mammo and [place] [id number] Immediate follow-up LATERALITY: (B)
== END 2020-04-10 09:49 | disposition home or self-care (01) ==
LOC: DI 09:48
DX: Z12.31 Encounter for screening mammogram for malignant neoplasm of breast (principal); R92.1 Mammographic calcification found on diagnostic imaging of breast
CPT/HCPCS: 77063; 77067

== ENCOUNTER 2020-05-08 09:45 | Outpatient (CLI) | payer BC ==
[2020-05-08 10:13] LABS: BASOPHILS % (AUTO) 0.4 %; EOSINOPHILS # (AUTO) 0.1 10^3/uL (0.0-0.7); EOSINOPHILS % (AUTO) 1.4 %; HGB - HEMOGLOBIN 12.4 g/dL (12.0-16.0); LYMPHOCYTES # (AUTO) 1.5 10^3/uL (1.5-3.5); LYMPHOCYTES % (AUTO) 30.8 %; MEAN CORPUSCULAR HEMOGLOBIN 28.5 pg (27.0-31.0); MEAN CORPUSCULAR HGB CONC 32.3 g/dL (32.0-36.0); MEAN CORPUSCULAR VOLUME 88.3 fL (81.0-99.0); MEAN PLATELET VOLUME 10.3 fL (7.9-10.8); MONOCYTES # (AUTO) 0.4 10^3/uL (0.0-1.0); MONOCYTES % (AUTO) 7.2 %; PLT - PLATELET COUNT 207 10^3/uL (130-450); RED BLOOD COUNT 4.35 10^6/uL (4.20-5.40); RED CELL DISTRIBUTION WIDTH 14.5 % (12.0-15.0)
[2020-05-08 10:22] LABS: ALBUMIN 3.9 g/dL (3.2-5.5); ALBUMIN/GLOBULIN RATIO 1.3 (1.0-2.2); ALKALINE PHOSPHATASE 48 IU/L (42-121); ALT ALANINE AMINOTRANSFERASE 13 IU/L (10-60); AST ASPARTATE AMINOTRANSFERASE 19 IU/L (10-42); BILIRUBIN,TOTAL 0.5 mg/dL (0.2-1.0); BUN - BLOOD UREA NITROGEN 20 mg/dL (6-20); CALCIUM 9.1 mg/dL (8.5-10.3); CARBON DIOXIDE - CO2 27 mmol/L (21-32); CHLORIDE 103 mmol/L (101-111); CHOL/HDL RATIO 3.4 (<4.4); CHOLESTEROL 230 mg/dL; CREATININE 0.8 mg/dL (0.4-1.0); GLUCOSE 93 mg/dL (70-100); HDL CHOLESTEROL 67 mg/dL; LDL CHOLESTEROL,CALCULATED 138 mg/dL; LDL/HDL RATIO 2.1 (<4.4); SODIUM 139 mmol/L (135-145); TOTAL PROTEIN 6.8 g/dL (6.7-8.2); VLDL CHOLESTEROL 25 mg/dL
== END 2020-05-08 09:46 | disposition home or self-care (01) ==
LOC: LAB 09:45
PROVIDERS: ATTEND Internal Medicine Rheumatology
DX: M05.79 Rheumatoid arthritis with rheumatoid factor of multiple sites without organ or systems involvement (principal); Z51.81 Encounter for therapeutic drug level monitoring; Z79.899 Other long term (current) drug therapy
CPT/HCPCS: 36415; 80053; 80061; 83721; 85025

== ENCOUNTER 2020-06-13 14:27 | Outpatient (CLI) | payer BC ==
--- NOTE | 2020-06-14 11:09 | Mammography Report ---
UNILATERAL LEFT DIGITAL DIAGNOSTIC MAMMOGRAM 3D/2D: 06/13/2020 CLINICAL: Patient returns for magnifcation views of microcalcifications in the left breast. Comparison is made to exams dated: 04/10/2020 mammogram - [facility], 05/22/2019 ultr asound, 05/22/2019 mammogram, 11/30/2018 mammogram, and 09/20/2017 ultrasound - [facility]. The tissue of left breast is heterogeneously dense. This may lower the sensitivity of ma mmography. There are grouped fine dystrophic heterogeneous calcifications in the left breast at 1 o'clock middle depth. These are not significantly changed compared to previous exams, but better seen in magnifica tion views. No other significant masses or calcifications are seen in the breast. IMPRESSION: INCOMPLETE: NEEDS ADDITIONAL IMAGING EVALUATION The grouped fine dystrophic heterogeneous calcifications in the left breast at 1 o'clock middle depth remain indeterminate. An ultrasound is recommended to detect underlying masses. This was performed immediately following this exam. This exam was interpreted at Station ID: [id number]. NOTE: For mammograms, a report in lay terms will be sent to the patient. Approximately 15% of breast malignancies will not be visualized mammographically. In the management of a palpable breast mass, a negative mammogram must not discourage biopsy of a clinically suspicious lesion. Electronically Signed By: Heidi love/:06/13/2020 15:41:30 ACR BI-RADS Category 0: Incomplete 3340F PARENCHYMAL PATTERN: (D) - The breast(s) demonstrate(s) heterogeneously dense fibroglandular parenchy ma. BI-RADS CATEGORY: (0) - 0 Ultrasound [id number] Immediate follow-up LATERALITY: (B)
--- NOTE | 2020-06-14 11:09 | Ultrasound Report ---
LIMITED ULTRASOUND OF LEFT BREAST: 06/13/2020 CLINICAL: Patient returns today to evaluate an architectural distortion in the left breast. Comparison is made to exams dated: 04/10/2020 mammogram - [facility], 05/22/2019 ultr asound, 05/22/2019 mammogram, 11/30/2018 mammogram, and 09/20/2017 ultrasound - [facility]. Real-time ultrasound of the left breast 1-3 o'clock region was performed. [place] scale images of the real-time examination were reviewed. No significant abnormalities were seen sonographically in the left breast. Specifically, no finding to correspond to the patient's mammographic abnormality of focal calcifications. There is dense fibro cystic tissue. IMPRESSION: PROBABLY BENIGN No suspicious sonographic findings. The calcifications seen on mammogram have been relatively stable for one year, but two year stability has not been established. A follow-up left mammogram in 6 months is recommended to demonstrate stab ility of calcifications. Findings and recommendations were conveyed to the patient at time of exam. This exam was interpreted at Station ID: [id number]. Electronically Signed By: Heidi love/:06/13/2020 17:22:19 Ultrasound BI-RADS: 3 Probably benign BI-RADS CATEGORY: (3) - 3 Mammogram [id number] 6 month follow-up LATERALITY: (L)
== END 2020-06-13 14:28 | disposition home or self-care (01) ==
LOC: DI 14:27
PROVIDERS: ATTEND Registered Nurse
DX: R92.8 Other abnormal and inconclusive findings on diagnostic imaging of breast (principal)
CPT/HCPCS: 76642

== ENCOUNTER 2020-06-30 13:16 | Emergency (ER) | payer BC ==
[2020-06-30 13:59] LABS: BASOPHILS % (AUTO) 0.4 %; EOSINOPHILS # (AUTO) 0.1 10^3/uL (0.0-0.7); EOSINOPHILS % (AUTO) 1.6 %; HGB - HEMOGLOBIN 13.1 g/dL (12.0-16.0); LYMPHOCYTES # (AUTO) 2.3 10^3/uL (1.5-3.5); LYMPHOCYTES % (AUTO) 46.6 %; MEAN CORPUSCULAR HEMOGLOBIN 29.1 pg (27.0-31.0); MEAN CORPUSCULAR HGB CONC 32.9 g/dL (32.0-36.0); MEAN CORPUSCULAR VOLUME 88.4 fL (81.0-99.0); MEAN PLATELET VOLUME 10.4 fL (7.9-10.8); MONOCYTES # (AUTO) 0.3 10^3/uL (0.0-1.0); MONOCYTES % (AUTO) 5.7 %; NEUTROPHILS # (AUTO) 2.2 10^3/uL (1.5-6.6); NEUTROPHILS % (AUTO) 45.5 %; PLT - PLATELET COUNT 209 10^3/uL (130-450); RED CELL DISTRIBUTION WIDTH 13.7 % (12.0-15.0); WHITE BLOOD COUNT 4.9 x10^3/uL (4.8-10.8)
[2020-06-30 14:14] LABS: ALBUMIN 4.2 g/dL (3.2-5.5); ALBUMIN/GLOBULIN RATIO 1.5 (1.0-2.2); BILIRUBIN,TOTAL 0.5 mg/dL (0.2-1.0); CALCIUM 9.6 mg/dL (8.5-10.3); CREATININE 0.9 mg/dL (0.4-1.0)
--- NOTE | 2020-06-30 14:23 | XRAY Report ---
PROCEDURE: Chest 1 View X-Ray INDICATIONS: Chest pain TECHNIQUE: One view of the chest was acquired. COMPARISON: 03/03/2018 chest x-ray and chest CT FINDINGS: Surgical changes and devices: None. Lungs and pleura: No pleural effusions or pneumothorax. Lungs are clear. Mediastinum: Mediastinal contours appear normal. Heart size is normal. Bones and chest wall: No suspicious bony lesions. Mild levoconvex scoliotic curvature is seen. Ov erlying soft tissues appear unremarkable. IMPRESSION: Normal portable chest. Clear lungs. Levoconvex scoliotic curvature. Reviewed by: Markus Harman MD on 06/30/2020 1:21 PM AKDT Approved by: Markus Harman MD on 06/30/2020 1:21 PM AKDT Station ID: [id number]
[2020-06-30] MEDS ORDERED: SODIUM CHLORIDE 0.9% 1,000 ML IV STA (14:29)
--- NOTE | 2020-06-30 14:58 | ED Physician Documentation ---
PD HPI CHEST PAIN - Stated complaint Stated Complaint: CHEST PRESSURE - Chief complaint Chief Complaint: Cardiac - History obtained from History obtained from: Patient - History of Present Illness Timing - onset: How many days ago (10) Timing - onset during: Rest Timing - duration: Days (10) Timing - details: Abrupt onset, Still present Quality: Pressure Location: Substernal, Left chest Improved by: Other (sitting up or laying on the right side) Worsened by: Exertion, Position. No: Inspiration, Movement, Palpation Associated symptoms: Shortness of air. No: Diaphoresis, Nausea, Vomiting, Feeling faint / dizzy, General Weakness, Palpitations Similar symptoms before: Has not had sx before Recently seen: Clinic - Additional information Additional information: 55-year-old female complains of a 10-day history of pressure into the left chest that started with 2 sharp pains under the left breast and then developed pressure. She denies any specific pain she denies any worsening of the pain with inspiration. She does have an increase in pain if she is laying flat and she is able to roll onto her right side with relief of pain or sit up. She also is complaining of some exertional dyspnea. She states she can walk about across her house and will become short of breath. She is able to get out of bed into the bathroom without developing shortness of breath. She has had prior normal stress echo done at the [facility] 2 years ago. Review of Systems Constitutional: denies: Fever Eyes: denies: Decreased vision Ears: denies: Ear pain Nose: denies: Rhinorrhea / runny nose, Congestion Throat: denies: Sore throat Cardiac: reports: Chest pain / pressure, Palpitations. denies: Pedal edema, Calf pain Respiratory: reports: Dyspnea. 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 HEENT: Tonsil/Adenoidectomy - Present Medications Home Medications: Ambulatory Orders Medication Instructions Recorded Confirmed Gabapentin 600 mg PO QID 12/14/16 06/08/17 atenoloL [Atenolol] 25 mg PO BID 12/14/16 06/08/17 Abatacept [Orencia] mg SQ 03/03/18 Leflunomide [Arava] mg PO 03/03/18 Omeprazole [PriLOSEC] 20 mg PO DAILY 03/24/18 03/24/18 Gabapentin 300 mg PO TID 10/22/19 10/22/19 HYDROmorphone [Dilaudid] 2 mg PO Q6HR PRN 10/22/19 10/22/19 Hydrocodone/Acetaminophen [Superior 1 each PO Q6H PRN #20 tablet 10/22/19 5-325 Tablet] Ondansetron Odt [Zofran] 4 mg TL Q6H PRN #15 tablet 10/22/19 SUMAtriptan succinate [Sumatriptan 50 mg PO DAILY PRN #10 tablet 10/22/19 Succinate] carBAMazepine [TEGretol] 100 mg PO BID #30 tablet 10/22/19 dexAMETHasone [Decadron] 4 mg PO DAILY #7 tablet 10/22/19 Hydrocodone/Acetaminophen 1 - 2 each PO Q6H PRN #14 tablet 06/30/20 [Hydrocodone-Acetamin 5-325 mg] - Allergies Allergies/Adverse Reactions: Allergies Allergy/AdvReac Type Severity Reaction Status Date / Time codeine Allergy Unknown Verified 06/30/20 13:25 - Social History Does the pt smoke?: No Smoking Status: Never smoker Does the pt drink ETOH?: No Does the pt have substance abuse?: No - Immunizations Immunizations are current?: Yes - POLST Patient has POLST: No PD ED PE NORMAL - Vitals Vital signs reviewed: Yes (hypertensive ) - General General: Alert and oriented X 3, No acute distress, Well developed/nourished - HEENT HEENT: Atraumatic, PERRL, EOMI - Neck Neck: Supple, no meningeal sign, No bony TTP - Cardiac Cardiac: RRR, No murmur - Respiratory Respiratory: No respiratory distress, Clear bilaterally - Abdomen Abdomen: Normal bowel sounds, Soft, Non tender, Non distended, No organomegaly - Back Back: No CVA TTP, No spinal TTP - Derm Derm: Normal color, Warm and dry, No rash - Extremities Extremities: No deformity, No edema - Neuro Neuro: Alert and oriented X 3, 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, No motor deficit, No sensory deficit, Normal speech Eye Opening: Spontaneous Motor: Obeys Commands Verbal: Oriented GCS Score: 15 - Psych Psych: Normal mood, Normal affect Results - Vitals Vitals: Vital Signs - 24 hr 06/30/20 06/30/20 06/30/20 13:21 14:17 14:34 Temperature 36.4 C L Heart Rate 78 73 69 Respiratory 12 17 13 Rate Blood Pressure 128/93 H 136/83 H 117/67 O2 Saturation 100 100 100 06/30/20 16:29 Temperature Heart Rate 77 Respiratory 19 Rate Blood Pressure 120/72 O2 Saturation 100 Oxygen O2 Source Room air - EKG (time done) 1319 Rate: Rate (enter#) (74) Rhythm: NSR Ischemia: Normal ST segments Compare to prior EKG: Unchanged from prior EKG (SPT 03-03-2018 no changes) Computer interpretation: Agree with computer - Labs Labs: Laboratory Tests 06/30/20 06/30/20 06/30/20 13:55 13:55 13:55 WBC 4.9 RBC 4.50 Hgb 13.1 Hct 39.8 MCV 88.4 MCH 29.1 MCHC 32.9 RDW 13.7 Plt Count 209 MPV 10.4 Neut # (Auto) 2.2 Lymph # (Auto) 2.3 Mclennan # (Auto) 0.3 Eos # (Auto) 0.1 Baso # (Auto) 0.0 Absolute Nucleated RBC 0.00 Nucleated RBC % 0.0 D-Dimer Sodium 142 Potassium 4.0 Chloride 104 Carbon Dioxide 29 Anion Gap 9.0 BUN 22 H Creatinine 0.9 Estimated GFR (MDRD) 65 L Glucose 117 H Calcium 9.6 Total Bilirubin 0.5 AST 19 ALT 12 Alkaline Phosphatase 45 Troponin I High Sens < 2.3 L B-Natriuretic Peptide Total Protein 7.0 Albumin 4.2 Globulin 2.8 Albumin/Globulin Ratio 1.5 Lipase 51 TSH 06/30/20 06/30/20 06/30/20 13:55 13:55 13:55 WBC RBC Hgb Hct MCV MCH MCHC RDW Plt Count MPV Neut # (Auto) Lymph # (Auto) Mclennan # (Auto) Eos # (Auto) Baso # (Auto) Absolute Nucleated RBC Nucleated RBC % D-Dimer 612.7 H Sodium Potassium Chloride Carbon Dioxide Anion Gap BUN Creatinine Estimated GFR (MDRD) Glucose Calcium Total Bilirubin AST ALT Alkaline Phosphatase Troponin I High Sens B-Natriuretic Peptide 42 Total Protein Albumin Globulin Albumin/Globulin Ratio Lipase TSH 0.56 - Rads (name of study) chest Radiology: Prelim report reviewed (Impression: Normal portable chest. Clear lungs. Levoconvex scoliotic curvature.), EMP read indepedently, See rad report CT angios chest Radiology: Prelim report reviewed (Impression: Negative for pulmonary embolism. Clear lungs. Incidental note made of: Small hiatal hernia cholecystectomy), EMP read indepedently, See rad report Procedures - IVC sono (time) 1420 Bedside IVC sono: IVC measures (cm) (1.22), IVC collapsed c insp (cm) (complete), Dehydration (est 1 liter deficit) PD MEDICAL DECISION MAKING - ED course Complexity details: reviewed old records, reviewed results, re-evaluated patient, considered differential, d/w patient ED course: 55 y/o female with a 10 day history of exertional dyspnea and left sided chest pain. Her vitals here are normal, her CXR, EKG, trop and BNP are all normal. Her D-dimer is elevated and a pulmonary angiogram is ordered. She is found to have a completely collapsing IVC consistent with a 1 liter deficit and she is administered IV saline. The pulmonary angiogram is without obvious PE and she is administered IV decadron and toradal for chest wall pain. Departure - Departure Disposition: 01 Home, Self Care Clinical Impression: Chest wall pain Condition: Stable Instructions: ED Chest Pain Atypical Unkn Cause Follow-Up: Ariela White ARNP [Primary Care Provider] - Prescriptions: Hydrocodone/Acetaminophen [Hydrocodone-Acetamin 5-325 mg] 1 - 2 each PO Q6H PRN #14 tablet PRN Reason: Pain
[2020-06-30] MEDS ORDERED: IOVERSOL 320 100 ML VIAL IVP ONE ×2 (16:03→18:25)
[2020-06-30] MEDS ORDERED: DEXAMETHASONE 10 MG/ML VIAL IVP STA (16:40)
[2020-06-30] MEDS ORDERED: KETOROLAC 30 MG/ML VIAL IVP STA (16:40)
--- NOTE | 2020-06-30 16:48 | CT Report ---
PROCEDURE: ANGIO CHEST W/WO INDICATIONS: PE study CONTRAST: IV CONTRAST: Optiray 320 ml: 80 PO CONTRAST: *NO PO CONTRAST TECHNIQUE: After the administration of intravenous contrast, 2 mm thick sections acquired from the pulmonary api gretel to the posterior costophrenic angles. 3-dimensional maximum intensity projection (MIP) coronal a nd sagittal reformats were then acquired through the thorax. For radiation dose reduction, the follow ing was used: automated exposure control, adjustment of mA and/or kV according to patient size. COMPARISON: Prior chest CT, 03/03/2018. Correlation is made with the accompanying chest x-ray, 020 FINDINGS: Image quality: Excellent. Pulmonary arteries: Pulmonary arteries are normal in size, and demonstrate no intraluminal filling d efects to suggest central pulmonary embolism. Lungs and pleura: Lungs are clear. No pleural effusions or pneumothorax. Central and peripheral ai rways are patent. Mediastinum: Heart size is normal, without pericardial effusion. No mediastinal or hilar adenopathy . Thoracic aorta is normal in caliber and enhancement. Esophagus is normal in caliber. There is a s mall hiatal hernia. Bones and chest wall: No suspicious bony lesions. Ribs and thoracic spine appear intact throughout. The thyroid is normal. No axillary or supraclavicular adenopathy. Abdomen: Cholecystectomy clips are seen. Visualized upper abdominal solid organs appear normal in the early arterial phase of enhancement. IMPRESSION: Negative for pulmonary embolism. Clear lungs. Incidental note is made of: Small hiatal hernia Cholecystectomy Reviewed by: Markus Harman MD on 06/30/2020 3:47 PM AKDT Approved by: Markus Harman MD on 06/30/2020 3:47 PM AKDT Station ID: [id number]
[2020-06-30 17:09] VITALS: BP 136/76
== END 2020-06-30 17:40 | disposition home or self-care (01) ==
LOC: ED 13:16
DX: R07.89 Other chest pain (principal); E86.0 Dehydration; R79.89 Other specified abnormal findings of blood chemistry; I10 Essential (primary) hypertension; K44.9 Diaphragmatic hernia without obstruction or gangrene; Z90.49 Acquired absence of other specified parts of digestive tract
CPT/HCPCS: 36415; 71045; 71275; 83690; 83880; 84484; 85379; 93005; 96361; 96374; 99284; Q9967; 80053; 84443; 85025

== ENCOUNTER 2020-07-05 12:11 | Outpatient (CLI) | payer BC ==
[2020-07-05 12:20] LABS: BASOPHILS % (AUTO) 0.6 %; EOSINOPHILS # (AUTO) 0.1 10^3/uL (0.0-0.7); EOSINOPHILS % (AUTO) 2.4 %; HGB - HEMOGLOBIN 12.5 g/dL (12.0-16.0); LYMPHOCYTES # (AUTO) 2.1 10^3/uL (1.5-3.5); LYMPHOCYTES % (AUTO) 40.7 %; MEAN CORPUSCULAR HEMOGLOBIN 28.3 pg (27.0-31.0); MEAN CORPUSCULAR HGB CONC 31.5 g/dL (32.0-36.0); MEAN CORPUSCULAR VOLUME 89.8 fL (81.0-99.0); MEAN PLATELET VOLUME 10.3 fL (7.9-10.8); MONOCYTES # (AUTO) 0.3 10^3/uL (0.0-1.0); MONOCYTES % (AUTO) 6.3 %; NEUTROPHILS # (AUTO) 2.5 10^3/uL (1.5-6.6); NEUTROPHILS % (AUTO) 49.8 %; PLT - PLATELET COUNT 216 10^3/uL (130-450); RED BLOOD COUNT 4.42 10^6/uL (4.20-5.40); RED CELL DISTRIBUTION WIDTH 13.9 % (12.0-15.0); WHITE BLOOD COUNT 5.1 x10^3/uL (4.8-10.8)
[2020-07-05 12:33] LABS: ALBUMIN 4.1 g/dL (3.2-5.5); ALBUMIN/GLOBULIN RATIO 1.5 (1.0-2.2); BILIRUBIN,TOTAL 0.6 mg/dL (0.2-1.0); CALCIUM 9.1 mg/dL (8.5-10.3); CREATININE 0.9 mg/dL (0.4-1.0); TOTAL PROTEIN 6.8 g/dL (6.7-8.2)
== END 2020-07-05 12:12 | disposition home or self-care (01) ==
LOC: LAB 12:11
PROVIDERS: ATTEND Internal Medicine Rheumatology
DX: M05.79 Rheumatoid arthritis with rheumatoid factor of multiple sites without organ or systems involvement (principal); Z51.81 Encounter for therapeutic drug level monitoring
CPT/HCPCS: 36415; 80053; 85025

== ENCOUNTER 2020-08-02 11:46 | Outpatient (CLI) | payer BC ==
--- NOTE | 2020-08-06 14:20 | Ultrasound Report ---
LIMITED ULTRASOUND OF LEFT BREAST: 08/02/2020 CLINICAL: Diffuse left breast pain. Comparison is made to exams dated: 06/13/2020 ultrasound, 06/13/2020 mammogram - [facility], 09/20/2017 ultrasound, 05/22/2019 mammogram, and 11/30/2018 mammogram - [facility]. Color flow ultrasound of the left breast 1-2 o'clock, and retroareolar regions was performed on the a reas of interest. Arteaga scale images of the real-time examination were reviewed. No discrete cystic or solid mass lesion identified in the area of pain and tenderness. Scattered foci of calcifications are noted. IMPRESSION: SUSPICIOUS OF MALIGNANCY There is no discrete mass in the left breast to correspond with the pain and tenderness at 1 and 2 o' clock. Grouped microcalcifications were demonstrated on the prior available mammograms from 2018 and 2019 in the upper outer quadrant possible corresponding to the areas of clinical concern. Patient reports pr ior mammogram performed in [place]. Attempts will be made to obtain those exams for comparison. If the calcifications are new from prior imaging, a stereotactic guided biopsy is recommended. If the calci fications were present previously, clinical followup is recommended for pain symptoms. Consider a jannette ast MRI if clinical concern persists. The findings were discussed with and the results were reviewed with the patient at the conclusion of the study. Future imaging is recommended as follows: 12/11/2020 follow-up left mammogram. This exam was interpreted at Station ID: [id number]. Electronically Signed By: Justin Willams M.D. ddp/:08/02/2020 15:10:30 Ultrasound BI-RADS: 4 Suspicious for malignancy BI-RADS CATEGORY: (4) - 4 None [id number] Immediate follow-up LATERALITY: ()
== END 2020-08-02 11:47 | disposition home or self-care (01) ==
LOC: DI 11:46
PROVIDERS: ATTEND Registered Nurse
DX: R92.8 Other abnormal and inconclusive findings on diagnostic imaging of breast (principal)
CPT/HCPCS: 76642

== ENCOUNTER 2020-08-08 11:36 | Outpatient (CLI) | payer BC ==
[2020-08-08 12:01] LABS: BASOPHILS % (AUTO) 0.2 %; EOSINOPHILS # (AUTO) 0.2 10^3/uL (0.0-0.7); EOSINOPHILS % (AUTO) 3.6 %; HGB - HEMOGLOBIN 12.8 g/dL (12.0-16.0); LYMPHOCYTES # (AUTO) 1.7 10^3/uL (1.5-3.5); MEAN CORPUSCULAR HEMOGLOBIN 29.2 pg (27.0-31.0); MEAN CORPUSCULAR HGB CONC 32.5 g/dL (32.0-36.0); MEAN PLATELET VOLUME 10.6 fL (7.9-10.8); MONOCYTES # (AUTO) 0.4 10^3/uL (0.0-1.0); MONOCYTES % (AUTO) 8.5 %; NEUTROPHILS # (AUTO) 2.3 10^3/uL (1.5-6.6); NEUTROPHILS % (AUTO) 50.5 %; PLT - PLATELET COUNT 218 10^3/uL (130-450); RED BLOOD COUNT 4.38 10^6/uL (4.20-5.40); RED CELL DISTRIBUTION WIDTH 13.9 % (12.0-15.0); WHITE BLOOD COUNT 4.5 x10^3/uL (4.8-10.8)
[2020-08-08 12:09] LABS: ALBUMIN 4.4 g/dL (3.2-5.5); ALBUMIN/GLOBULIN RATIO 1.6 (1.0-2.2); BILIRUBIN,TOTAL 0.7 mg/dL (0.2-1.0); CALCIUM 9.9 mg/dL (8.5-10.3); CREATININE 0.9 mg/dL (0.4-1.0); TOTAL PROTEIN 7.1 g/dL (6.7-8.2)
== END 2020-08-08 11:37 | disposition home or self-care (01) ==
LOC: LAB 11:36
PROVIDERS: ATTEND Internal Medicine Rheumatology
DX: M05.79 Rheumatoid arthritis with rheumatoid factor of multiple sites without organ or systems involvement (principal); Z51.81 Encounter for therapeutic drug level monitoring; Z79.899 Other long term (current) drug therapy
CPT/HCPCS: 36415; 80053; 85025

== ENCOUNTER 2020-08-21 10:24 | Outpatient (CLI) | payer BC ==
[2020-08-21 14:37] LABS: BASOPHILS % (AUTO) 0.5 %; EOSINOPHILS # (AUTO) 0.3 10^3/uL (0.0-0.7); EOSINOPHILS % (AUTO) 6.9 %; HGB - HEMOGLOBIN 13.1 g/dL (12.0-16.0); LYMPHOCYTES # (AUTO) 1.7 10^3/uL (1.5-3.5); LYMPHOCYTES % (AUTO) 44.3 %; MEAN CORPUSCULAR HGB CONC 32.4 g/dL (32.0-36.0); MEAN CORPUSCULAR VOLUME 89.6 fL (81.0-99.0); MONOCYTES # (AUTO) 0.4 10^3/uL (0.0-1.0); MONOCYTES % (AUTO) 10.1 %; NEUTROPHILS # (AUTO) 1.4 10^3/uL (1.5-6.6); NEUTROPHILS % (AUTO) 38.2 %; PLT - PLATELET COUNT 225 10^3/uL (130-450); RED BLOOD COUNT 4.51 10^6/uL (4.20-5.40); RED CELL DISTRIBUTION WIDTH 13.5 % (12.0-15.0); WHITE BLOOD COUNT 3.8 x10^3/uL (4.8-10.8)
[2020-08-21 14:57] LABS: ALBUMIN/GLOBULIN RATIO 1.3 (1.0-2.2); BILIRUBIN,TOTAL 0.6 mg/dL (0.2-1.0); CALCIUM 9.7 mg/dL (8.5-10.3); CREATININE 0.9 mg/dL (0.4-1.0)
== END 2020-08-21 10:25 | disposition home or self-care (01) ==
LOC: LAB.S 10:24
PROVIDERS: ATTEND Family Medicine
DX: D64.9 Anemia, unspecified (principal); K21.9 Gastro-esophageal reflux disease without esophagitis; N64.4 Mastodynia; R53.83 Other fatigue
CPT/HCPCS: 36415; 80053; 82150; 83690; 84443; 85025

== ENCOUNTER 2020-09-04 12:57 | Outpatient (CLI) | payer BC ==
[2020-09-04 13:15] LABS: BASOPHILS % (AUTO) 0.4 %; EOSINOPHILS # (AUTO) 0.2 10^3/uL (0.0-0.7); EOSINOPHILS % (AUTO) 4.1 %; HGB - HEMOGLOBIN 12.6 g/dL (12.0-16.0); LYMPHOCYTES # (AUTO) 2.2 10^3/uL (1.5-3.5); LYMPHOCYTES % (AUTO) 40.2 %; MEAN CORPUSCULAR HEMOGLOBIN 29.3 pg (27.0-31.0); MEAN CORPUSCULAR HGB CONC 32.8 g/dL (32.0-36.0); MEAN CORPUSCULAR VOLUME 89.3 fL (81.0-99.0); MEAN PLATELET VOLUME 10.3 fL (7.9-10.8); MONOCYTES # (AUTO) 0.5 10^3/uL (0.0-1.0); MONOCYTES % (AUTO) 9.7 %; NEUTROPHILS # (AUTO) 2.5 10^3/uL (1.5-6.6); NEUTROPHILS % (AUTO) 45.4 %; PLT - PLATELET COUNT 264 10^3/uL (130-450); RED CELL DISTRIBUTION WIDTH 13.6 % (12.0-15.0); WHITE BLOOD COUNT 5.6 x10^3/uL (4.8-10.8)
[2020-09-04 13:43] LABS: ALBUMIN 4.1 g/dL (3.2-5.5); ALBUMIN/GLOBULIN RATIO 1.6 (1.0-2.2); BILIRUBIN,TOTAL 0.4 mg/dL (0.2-1.0); TOTAL PROTEIN 6.7 g/dL (6.7-8.2)
== END 2020-09-04 12:58 | disposition home or self-care (01) ==
LOC: LAB 12:57
PROVIDERS: ATTEND Internal Medicine Rheumatology
DX: M05.79 Rheumatoid arthritis with rheumatoid factor of multiple sites without organ or systems involvement (principal); Z51.81 Encounter for therapeutic drug level monitoring
CPT/HCPCS: 36415; 80053; 85025

== ENCOUNTER 2020-09-26 09:11 | Outpatient (CLI) | payer BC ==
[2020-09-26] MEDS ORDERED: GADOBUTROL 7.5 MMOL/7.5 ML VIAL ONE (10:12)
[2020-09-26] MEDS ORDERED: GADOBUTROL 7.5 MMOL/7.5 ML VIAL IVP ONE (10:33)
--- NOTE | 2020-10-01 13:08 | MRI Report ---
BREAST MRI OF BOTH BREASTS: 09/26/2020 CLINICAL: Palpable left breast lump. Comparison is made to exams dated: 08/02/2020 ultrasound, 06/13/2020 ultrasound, 06/13/2020 mammogram, 04/10/2020 mammogram - [facility], and 06/26/2016 mammogram - [facility]. TECHNIQUE: The patient was placed prone in a dedicated breast imaging coil. Precontrast axial STIR and 3D FLASH without fat saturation sequences were obtained. Both before and after bolus injection of contrast, sequential 1-minute axial 3D FLASH with fat saturation sequences for 3 time points, with subtraction images and maximum intensity projections (MIPs) generated. Delayed sagittal FLASH images with fat s aturation were also obtained. Computer-aided detection, including computer algorithm analysis of MRI image data for lesion detectio n and characterization, pharmacokinetic analysis, with further physician review for interpretation, w as performed. FINDINGS: Image quality: Excellent. There is mild background parenchymal enhancement. Right breast: No suspicious mass or abnormal non-mass enhancement is identified in the right breast. A few small nonenhancing T2-hyperintense cysts are seen in the right breast. Left breast: No suspicious mass or abnormal non-mass enhancement is identified in the left breast. S everal small nonenhancing T2-hyperintense cysts are seen scattered throughout the left breast. Miscellaneous: There is no significantly enlarged axillary lymphadenopathy. No suspicious abnormalit y is seen in the included anterior chest wall or upper abdomen. IMPRESSION: BENIGN 1. No suspicious mass or abnormal non-mass enhancement in either breast. 2. No significant axillary lymphadenopathy. 3. Small benign cysts are seen in both breasts. BIRADS 2: Benign findings. COMMENT: The imaging literature indicates that a negative contrast breast MRI examination has a high sensitivity and a moderate specificity for detecting and excluding invasive carcinomas to a detection threshold of 3-5 mm; nonetheless, appropriate clinical and mammographic follow-up are recommended. MRI is not sensitive for detecting DCIS (ductal carcinoma in situ) and may not detect large invasive neoplasms that show only minimal enhancement such as mucinous carcinoma. If there are suspicious mis cifications or clinically worrisome palpable masses, then biopsy should still be considered. Invasiv e neoplasms can be hidden by co-existent and benign enhancement caused by mastitis, hormone therapy e ffects, radiation therapy, , and recent biopsy or surgery. False positive examinations can occur in a number of circumstances, including breasts that have recently been subject to invasive pro cedures and those that contain atypical ductal hyperplasia, hormonally stimulated glandular tissue, f at necrosis, or radial scars. A 1 year screening mammogram is recommended. Future imaging is recommended as follows: 04/11/2021 or reening mammogram. This exam was interpreted at Station ID: [id number]. Electronically Signed By: Micah Pearl M.D. ar/:10/01/2020 12:10:26 ACR BI-RADS Category 2: Benign Finding(s) 3342F BI-RADS CATEGORY: (2) - 2 RECOMMENDATION: (ANNUAL) - Recommend routine annual screening mammography. [id number] 1 year screening LATERALITY: (B)
== END 2020-09-26 09:12 | disposition home or self-care (01) ==
LOC: DI 09:11
PROVIDERS: ATTEND Surgery
DX: N60.12 Diffuse cystic mastopathy of left breast (principal); N60.11 Diffuse cystic mastopathy of right breast
CPT/HCPCS: 77049; A9585

== ENCOUNTER 2020-11-13 10:18 | Outpatient (CLI) | payer BC ==
[2020-11-13 10:53] LABS: BASOPHILS % (AUTO) 0.3 %; EOSINOPHILS # (AUTO) 0.1 10^3/uL (0.0-0.7); EOSINOPHILS % (AUTO) 2.1 %; HGB - HEMOGLOBIN 12.8 g/dL (12.0-16.0); LYMPHOCYTES % (AUTO) 51.3 %; MEAN CORPUSCULAR HEMOGLOBIN 30.5 pg (27.0-31.0); MEAN CORPUSCULAR HGB CONC 32.1 g/dL (32.0-36.0); MONOCYTES # (AUTO) 0.5 10^3/uL (0.0-1.0); MONOCYTES % (AUTO) 7.9 %; NEUTROPHILS # (AUTO) 2.2 10^3/uL (1.5-6.6); NEUTROPHILS % (AUTO) 38.2 %; PLT - PLATELET COUNT 294 10^3/uL (130-450); RED CELL DISTRIBUTION WIDTH 13.3 % (12.0-15.0); WHITE BLOOD COUNT 5.8 x10^3/uL (4.8-10.8)
[2020-11-13 11:03] LABS: ALBUMIN 4.1 g/dL (3.2-5.5); ALBUMIN/GLOBULIN RATIO 1.8 (1.0-2.2); BILIRUBIN,TOTAL 0.6 mg/dL (0.2-1.0); CALCIUM 9.9 mg/dL (8.5-10.3); CREATININE 0.9 mg/dL (0.4-1.0); TOTAL PROTEIN 6.4 g/dL (6.7-8.2)
== END 2020-11-13 10:19 | disposition home or self-care (01) ==
LOC: LAB 10:18
PROVIDERS: ATTEND Internal Medicine Rheumatology
DX: M05.79 Rheumatoid arthritis with rheumatoid factor of multiple sites without organ or systems involvement (principal); Z51.81 Encounter for therapeutic drug level monitoring
CPT/HCPCS: 36415; 80053; 85025

== ENCOUNTER 2020-12-03 17:13 | Outpatient (CLI) | payer BC | END 2020-12-03 17:14 | disposition home or self-care (01) | LOC: COV 17:13 | PROVIDERS: ATTEND Family Medicine | DX: R05 Cough (principal); M79.10 Myalgia, unspecified site; R53.83 Other fatigue; R07.0 Pain in throat; R09.81 Nasal congestion; J34.89 Other specified disorders of nose and nasal sinuses; Z20.822 Contact with and (suspected) exposure to COVID-19 ==

== ENCOUNTER 2020-12-26 12:14 | Outpatient (CLI) | payer BC ==
[2020-12-26 12:36] LABS: BASOPHILS % (AUTO) 0.2 %; EOSINOPHILS # (AUTO) 0.1 10^3/uL (0.0-0.7); EOSINOPHILS % (AUTO) 2.8 %; HCT - HEMATOCRIT 39.2 % (37.0-47.0); HGB - HEMOGLOBIN 12.7 g/dL (12.0-16.0); LYMPHOCYTES # (AUTO) 1.6 10^3/uL (1.5-3.5); LYMPHOCYTES % (AUTO) 31.3 %; MEAN CORPUSCULAR HEMOGLOBIN 30.2 pg (27.0-31.0); MEAN CORPUSCULAR HGB CONC 32.4 g/dL (32.0-36.0); MEAN CORPUSCULAR VOLUME 93.3 fL (81.0-99.0); MEAN PLATELET VOLUME 10.2 fL (7.9-10.8); MONOCYTES # (AUTO) 0.4 10^3/uL (0.0-1.0); NEUTROPHILS # (AUTO) 2.9 10^3/uL (1.5-6.6); NEUTROPHILS % (AUTO) 58.5 %; PLT - PLATELET COUNT 245 10^3/uL (130-450); RED CELL DISTRIBUTION WIDTH 13.1 % (12.0-15.0)
[2020-12-26 12:48] LABS: ALBUMIN 4.3 g/dL (3.2-5.5); ALBUMIN/GLOBULIN RATIO 1.7 (1.0-2.2); BILIRUBIN,TOTAL 0.4 mg/dL (0.2-1.0); CALCIUM 9.8 mg/dL (8.5-10.3); CREATININE 0.9 mg/dL (0.4-1.0); POTASSIUM 4.3 mmol/L (3.5-5.0); TOTAL PROTEIN 6.9 g/dL (6.7-8.2)
== END 2020-12-26 12:15 | disposition home or self-care (01) ==
LOC: LAB 12:14
PROVIDERS: ATTEND Internal Medicine Rheumatology
DX: M05.79 Rheumatoid arthritis with rheumatoid factor of multiple sites without organ or systems involvement (principal); Z51.81 Encounter for therapeutic drug level monitoring; Z79.899 Other long term (current) drug therapy
CPT/HCPCS: 36415; 80053; 85025

== ENCOUNTER 2021-01-20 10:19 | Outpatient (CLI) | payer BC ==
--- NOTE | 2021-01-21 09:59 | Mammography Report ---
UNILATERAL LEFT DIGITAL DIAGNOSTIC MAMMOGRAM 3D/2D: 01/20/2021 CLINICAL: Focal left breast pain. Comparison is made to exams dated: 06/13/2020 mammogram, 04/10/2020 mammogram - [facility], 05/22/2019 mammogram - [facility], 09/26/2020 breast MRI, 08/02/2020 ult rasound - [facility], and 06/26/2016 mammogram - [facility]. The tissue of left b reast is heterogeneously dense. This may lower the sensitivity of mammography. No significant masses, calcifications, or other findings are seen in the breast. IMPRESSION: INCOMPLETE: NEEDS ADDITIONAL IMAGING EVALUATION No mammographic evidence of malignancy. A targeted ultrasound of the focal pain in the left breast is recommended and will immediately follow . This exam was interpreted at Station ID: [id number]. NOTE: For mammograms, a report in lay terms will be sent to the patient. Approximately 15% of breast malignancies will not be visualized mammographically. In the management of a palpable breast mass, a negative mammogram must not discourage biopsy of a clinically suspicious lesion. Electronically Signed By: Jonathan Leiva M.D. slc/:01/20/2021 11:20:57 ACR BI-RADS Category 0: Incomplete 3340F PARENCHYMAL PATTERN: (D) - The breast(s) demonstrate(s) heterogeneously dense fibroglandular pardavidy ericka. BI-RADS CATEGORY: (0) - 0 Ultrasound [id number] Immediate follow-up LATERALITY: (B)
--- NOTE | 2021-01-21 09:59 | Ultrasound Report ---
LIMITED ULTRASOUND OF LEFT BREAST: 01/20/2021 CLINICAL: Focal left breast pain. Comparison is made to exams dated: 01/20/2021 mammogram, 09/26/2020 breast MRI, 08/02/2020 ultrasound , 06/13/2020 ultrasound, 06/13/2020 mammogram, and 04/10/2020 mammogram - [facility]. Color flow and real-time ultrasound of the left breast 1 o'clock region were performed. Arteaga scale i mages of the real-time examination were reviewed. No significant abnormalities were seen sonographically in the left breast. IMPRESSION: NEGATIVE There is no sonographic evidence of malignancy in the region of pain. Return to screening mammogram schedule is recommended. Exam findings were conveyed to the patient. Patient is advised to monitor for significant change. Cli nical follow-up as needed. This exam was interpreted at Station ID: [id number]. Electronically Signed By: Jonathan Leiva M.D. slc/:01/20/2021 11:47:17 Ultrasound BI-RADS: 1 Negative BI-RADS CATEGORY: (1) - 1 Mammogram [id number] return to screening LATERALITY: (B)
== END 2021-01-20 10:20 | disposition home or self-care (01) ==
LOC: DI 10:19
PROVIDERS: ATTEND Registered Nurse
DX: N64.4 Mastodynia (principal); R07.9 Chest pain, unspecified

== ENCOUNTER 2021-01-31 13:31 | Outpatient (CLI) | payer BC ==
[2021-01-31 13:43] LABS: BASOPHILS % (AUTO) 0.4 %; EOSINOPHILS # (AUTO) 0.1 10^3/uL (0.0-0.7); EOSINOPHILS % (AUTO) 1.8 %; HCT - HEMATOCRIT 37.8 % (37.0-47.0); HGB - HEMOGLOBIN 12.5 g/dL (12.0-16.0); LYMPHOCYTES # (AUTO) 1.9 10^3/uL (1.5-3.5); LYMPHOCYTES % (AUTO) 35.8 %; MEAN CORPUSCULAR HEMOGLOBIN 30.8 pg (27.0-31.0); MEAN CORPUSCULAR HGB CONC 33.1 g/dL (32.0-36.0); MEAN CORPUSCULAR VOLUME 93.1 fL (81.0-99.0); MEAN PLATELET VOLUME 9.9 fL (7.9-10.8); MONOCYTES # (AUTO) 0.4 10^3/uL (0.0-1.0); MONOCYTES % (AUTO) 7.7 %; NEUTROPHILS # (AUTO) 2.9 10^3/uL (1.5-6.6); NEUTROPHILS % (AUTO) 54.1 %; PLT - PLATELET COUNT 252 10^3/uL (130-450); RED BLOOD COUNT 4.06 10^6/uL (4.20-5.40); RED CELL DISTRIBUTION WIDTH 13.4 % (12.0-15.0); WHITE BLOOD COUNT 5.4 x10^3/uL (4.8-10.8)
[2021-01-31 13:58] LABS: ALBUMIN 4.2 g/dL (3.2-5.5); ALBUMIN/GLOBULIN RATIO 1.9 (1.0-2.2); BILIRUBIN,TOTAL 0.6 mg/dL (0.2-1.0); CALCIUM 9.3 mg/dL (8.5-10.3); CREATININE 0.9 mg/dL (0.4-1.0); POTASSIUM 4.2 mmol/L (3.5-5.0); TOTAL PROTEIN 6.4 g/dL (6.7-8.2)
== END 2021-01-31 13:32 | disposition home or self-care (01) ==
LOC: LAB 13:31
PROVIDERS: ATTEND Internal Medicine Rheumatology
DX: M05.79 Rheumatoid arthritis with rheumatoid factor of multiple sites without organ or systems involvement (principal); Z51.81 Encounter for therapeutic drug level monitoring; Z79.899 Other long term (current) drug therapy
CPT/HCPCS: 36415; 80053; 85025

== ENCOUNTER 2021-03-13 13:35 | Outpatient (CLI) | payer BC ==
[2021-03-13 13:53] LABS: BASOPHILS % (AUTO) 0.2 %; EOSINOPHILS # (AUTO) 0.1 10^3/uL (0.0-0.7); EOSINOPHILS % (AUTO) 1.6 %; HCT - HEMATOCRIT 37.9 % (37.0-47.0); HGB - HEMOGLOBIN 12.6 g/dL (12.0-16.0); LYMPHOCYTES # (AUTO) 1.1 10^3/uL (1.5-3.5); LYMPHOCYTES % (AUTO) 22.8 %; MEAN CORPUSCULAR HGB CONC 33.2 g/dL (32.0-36.0); MEAN CORPUSCULAR VOLUME 93.3 fL (81.0-99.0); MEAN PLATELET VOLUME 10.3 fL (7.9-10.8); MONOCYTES # (AUTO) 0.5 10^3/uL (0.0-1.0); MONOCYTES % (AUTO) 9.7 %; NEUTROPHILS # (AUTO) 3.2 10^3/uL (1.5-6.6); NEUTROPHILS % (AUTO) 65.5 %; PLT - PLATELET COUNT 196 10^3/uL (130-450); RED BLOOD COUNT 4.06 10^6/uL (4.20-5.40); RED CELL DISTRIBUTION WIDTH 12.5 % (12.0-15.0); WHITE BLOOD COUNT 4.9 x10^3/uL (4.8-10.8)
[2021-03-13 14:06] LABS: ALBUMIN/GLOBULIN RATIO 1.7 (1.0-2.2); BILIRUBIN,TOTAL 0.6 mg/dL (0.2-1.0); CALCIUM 9.3 mg/dL (8.5-10.3); CREATININE 0.8 mg/dL (0.4-1.0); POTASSIUM 3.9 mmol/L (3.5-5.0); TOTAL PROTEIN 6.4 g/dL (6.7-8.2)
== END 2021-03-13 13:36 | disposition home or self-care (01) ==
LOC: LAB 13:35
PROVIDERS: ATTEND Internal Medicine Rheumatology
DX: M05.79 Rheumatoid arthritis with rheumatoid factor of multiple sites without organ or systems involvement (principal); Z51.81 Encounter for therapeutic drug level monitoring; Z79.899 Other long term (current) drug therapy
CPT/HCPCS: 36415; 80053; 85025

== ENCOUNTER 2021-06-12 12:05 | Outpatient (CLI) | payer BC ==
[2021-06-12 12:20] LABS: BASOPHILS % (AUTO) 0.2 %; EOSINOPHILS # (AUTO) 0.1 10^3/uL (0.0-0.7); EOSINOPHILS % (AUTO) 1.7 %; HCT - HEMATOCRIT 39.5 % (37.0-47.0); HGB - HEMOGLOBIN 12.9 g/dL (12.0-16.0); LYMPHOCYTES # (AUTO) 1.5 10^3/uL (1.5-3.5); LYMPHOCYTES % (AUTO) 32.5 %; MEAN CORPUSCULAR HEMOGLOBIN 30.6 pg (27.0-31.0); MEAN CORPUSCULAR HGB CONC 32.7 g/dL (32.0-36.0); MEAN CORPUSCULAR VOLUME 93.6 fL (81.0-99.0); MEAN PLATELET VOLUME 9.8 fL (7.9-10.8); MONOCYTES # (AUTO) 0.5 10^3/uL (0.0-1.0); MONOCYTES % (AUTO) 9.7 %; NEUTROPHILS # (AUTO) 2.6 10^3/uL (1.5-6.6); NEUTROPHILS % (AUTO) 55.7 %; PLT - PLATELET COUNT 250 10^3/uL (130-450); RED BLOOD COUNT 4.22 10^6/uL (4.20-5.40); RED CELL DISTRIBUTION WIDTH 12.9 % (12.0-15.0); WHITE BLOOD COUNT 4.6 x10^3/uL (4.8-10.8)
[2021-06-12 12:52] LABS: ALBUMIN 4.6 g/dL (3.2-5.5); ALBUMIN/GLOBULIN RATIO 2.1 (1.0-2.2); BILIRUBIN,TOTAL 0.6 mg/dL (0.2-1.0); CALCIUM 9.7 mg/dL (8.5-10.3); CREATININE 1.1 mg/dL (0.4-1.0); TOTAL PROTEIN 6.8 g/dL (6.7-8.2)
== END 2021-06-12 12:06 | disposition home or self-care (01) ==
LOC: LAB 12:05
PROVIDERS: ATTEND Internal Medicine Rheumatology
DX: M05.79 Rheumatoid arthritis with rheumatoid factor of multiple sites without organ or systems involvement (principal)
CPT/HCPCS: 36415; 80053; 85025; 85651

== ENCOUNTER 2021-06-18 11:46 | Outpatient (CLI) | payer BC ==
[2021-06-18 12:12] LABS: CREATININE 0.8 mg/dL (0.4-1.0)
[2021-06-18 12:17] LABS: BILIRUBIN,URINE NEGATIVE (NEGATIVE); GLUCOSE, URINE (UA) NEGATIVE (NEGATIVE); KETONES,URINE (UA) NEGATIVE (NEGATIVE); LEUKOCYTE ESTERASE, URINE NEGATIVE (NEGATIVE); NITRITE,URINE NEGATIVE (NEGATIVE); OCCULT BLOOD,URINE NEGATIVE (NEGATIVE); PH,URINE 5.5 PH (5.0-7.5); PROTEIN,URINE NEGATIVE (NEGATIVE); UROBILINOGEN,URINE 0.2 (NORMAL) E.U./dL (NORMAL)
[2021-06-18 12:31] LABS: BACTERIA,URINE Rare /HPF (None Seen); CLARITY,URINE CLEAR (CLEAR); CRYSTALS,URINE 3-5 Calcium Oxalate /LPF; RBC,URINE 0-5 /HPF (0-5); SQUAMOUS EPITHELIAL CELL,UR RARE Squamous (<= Few); WBC,URINE 0-3 /HPF (0-5)
== END 2021-06-18 11:47 | disposition home or self-care (01) ==
LOC: LAB 11:46
PROVIDERS: ATTEND Internal Medicine Rheumatology
DX: M06.9 Rheumatoid arthritis, unspecified (principal); R10.9 Unspecified abdominal pain
CPT/HCPCS: 36415; 81001; 82150; 82565; 83690; 84520; 87086

== ENCOUNTER 2021-06-22 12:01 | Emergency (ER) | payer BC ==
[2021-06-22] MEDS ORDERED: KETOROLAC 60 MG/2 ML VIAL IM STA (12:52)
--- NOTE | 2021-06-22 12:55 | ED Physician Documentation ---
History of Present Illness - Stated complaint Stated Complaint: L FACE/THROAT PX - Chief complaint Chief Complaint: Heent - History obtained from History obtained from: Patient - History of Present Illness Pain level max: 8 Pain level now: 8 - Additonal information Additional information: Patient is a 56-year-old female who presents to the emergency department with ongoing left-sided facial pain. This been ongoing for the past 5 weeks or so. She is seeing a child care assistant, dentist and lacing presser. She states that they keep prescribing her amoxicillin which does seem to help, but the pain has been increasing. The current thought is that on one of her root canals they did not go deep enough and left a portion of the nerve root. No fevers. No chills. Worse with palpation, eating. Nothing makes it better. The pain is described as dull and aching. Also has pain up near her left maxillary and left frontal sinuses. She states she has had some congestion. No changes with light or sound. 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 HEENT: Tonsil/Adenoidectomy - Present Medications Home Medications: Ambulatory Orders Medication Instructions Recorded Confirmed atenoloL [Atenolol] 25 mg PO BID 12/14/16 06/22/21 Omeprazole [PriLOSEC] 20 mg PO DAILY 03/24/18 06/22/21 Gabapentin 300 mg PO TID 10/22/19 06/22/21 Amox/Clav 875/125 [Augmentin] 1 tab PO Q12H #20 tablet 06/22/21 Oxycodone HCl/Acetaminophen 1 - 2 each PO Q6H PRN #14 tablet 06/22/21 [Percocet 5-325 mg Tablet] Promethazine [Phenergan] 25 mg PO Q6H PRN #10 tab 06/22/21 Upadacitinib [Rinvoq] 15 mg PO DAILY 06/22/21 06/22/21 - Allergies Allergies/Adverse Reactions: Allergies Allergy/AdvReac Type Severity Reaction Status Date / Time codeine Allergy Unknown Verified 06/22/21 12:17 - Social History Does the pt smoke?: No Smoking Status: Never smoker Does the pt drink ETOH?: No Does the pt have substance abuse?: No - Immunizations Immunizations are current?: Yes - POLST Patient has POLST: No PD ED PE NORMAL - Vitals Vital signs reviewed: Yes - General General: Alert and oriented X 3, No acute distress, Well developed/nourished - HEENT HEENT: PERRL, Ears normal, Moist mucous membranes, Pharynx benign, Other (mild L facial swelling, TTP over the L maxillary sinus. no dental tenderness or gingival abscess.) - Neck Neck: Supple, no meningeal sign - Cardiac Cardiac: RRR - Respiratory Respiratory: No respiratory distress, Clear bilaterally - Abdomen Abdomen: Soft, Non tender, Non distended - Derm Derm: Warm and dry - Neuro Neuro: Alert and oriented X 3 - Psych Psych: Normal mood, Normal affect Results - Vitals Vitals: Vital Signs - 24 hr 06/22/21 12:12 Temperature 36.9 C Heart Rate 69 Respiratory 14 Rate Blood Pressure 126/63 O2 Saturation 100 Oxygen O2 Source Room air - Rads (name of study) maxillofacial CT Radiology: Final report received, EMP read contemporaneously, See rad report PD MEDICAL DECISION MAKING - ED course Complexity details: reviewed results, re-evaluated patient, considered differential, d/w patient ED course: Patient with left-sided facial pain and swelling of unclear etiology. Does have some maxillary sinus disease. We will change her from amoxicillin to Augmentin and place her on pain medication for home. Patient had been on pain medication recently for her back. Patient is well-appearing, nontoxic. Afebrile. No drainable abscess. Patient will follow up with her doctor and dentist this week. I am prescribing a short course of short-acting opioid pain medication for this patient. 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 I have discussed that the opioids are for short term therapy only, and will not be refilled from the ED. patient counseled regarding signs and symptoms for which I believe and urgent re-evaluation would be necessary. Patient with good understanding of and agreement to plan and is comfortable going home at this time This document was made in part using voice recognition software. While efforts are made to proofread this document, sound alike and grammatical errors may occur. IMPRESSION: Minimal left face soft tissue swelling, without abscess. Focal left maxillary sinus disease. Departure - Departure Disposition: 01 Home, Self Care Clinical Impression: Sinusitis Qualifiers: Sinusitis location: maxillary Chronicity: acute Recurrence: non-recurrent Qualified Code(s): J01.00 - Acute maxillary sinusitis, unspecified Condition: Good Instructions: ED Sinusitis Abx Tx Follow-Up: your,doctor in 3 days [Other] Prescriptions: Amox/Clav 875/125 [Augmentin] 1 tab PO Q12H #20 tablet Oxycodone HCl/Acetaminophen [Percocet 5-325 mg Tablet] 1 - 2 each PO Q6H PRN #14 tablet PRN Reason: pain Promethazine [Phenergan] 25 mg PO Q6H PRN #10 tab PRN Reason: Nausea / Vomiting Comments: Take all antibiotics until gone. Follow-up with your dentist for further care. It does appear that you do have some left maxillary sinus disease. Otherwise your CT scan of your face is normal aside from a small amount of soft tissue swelling. Please follow-up with your doctor for further care. Return if you worsen. Your prescriptions were sent to [facility] in [place] today. I am prescribing a short course of narcotic pain medication for you. These are potentially dangerous and addictive medications that should be used carefully. These medications may constipate you. Take an nykt-iqv-cxtphme stool softener (docusate) twice daily with plenty of water while taking these medications. If you go 24 hours without a bowel movement, take dfkd-sur-liodyze miralax, per package instructions. Do not drink or drive while taking these medications. If you received narcotic or sedating medications while in the emergency department, do not drive for 24 hours. Store this medication in a safe, secure place and out of reach of children. It is a violation of federal law to give or sell this medication to another person or to use in a manner other than prescribed. The ED will not refill narcotic prescriptions, including prescriptions lost or stolen. To dispose of unwanted medications: 1. [facility] [address] in [place] has a medication drop box. They accept prescription medications (in pill form) Wednesday through Wednesday 9:00 a.m. to 5:00 p.m. 2. The [facility] accepts prescription medications (in pill form only) for disposal year round. Call for more informati on. 3. Contact the [facility] for the next [facility] sponsored prescription drug collection event. , [phone], or [phone];
--- NOTE | 2021-06-22 13:29 | CT Report ---
PROCEDURE: MAXILLOFACIAL WO INDICATIONS: L sided facial pain, swelling TECHNIQUE: Noncontrast 1.5 mm thick axial images acquired from the mandible through the frontal sinuses, with co teofilo and sagittal reformatting. For radiation dose reduction, the following was used: automated ex posure control, adjustment of mA and/or kV according to patient size. COMPARISON: None. FINDINGS: Image quality: Excellent. Bones and teeth: Orbital manjarrez are intact. Sinus manjarrez show no fracture or deformity. Nasal bones and septum are intact. Visualized portions of the mandible demonstrate no fractures or subluxation. Zygomatic arches are intact. Pterygoid plates are intact. Visualized portions of the skull base an d auditory canals are intact. Sinuses: Mild fluid is seen dependently within the left maxillary sinus. Paranasal sinuses are oth erwise well aerated, without fluid levels, mucosal thickening, or mucoceles. Mastoid air cells are a erated. Soft tissues: Minimal left facial soft tissue swelling is seen. No fluid collection is seen so sugg est abscess. No additional edema, masses, or fluid collections. No enlarged lymph nodes. No soft tissue lacerations or debris. Vascular: Visualized vascular structures appear normal in the absence of contrast. Bony vascular fo ramina and canals are intact. IMPRESSION: Minimal left face soft tissue swelling, without abscess. Focal left maxillary sinus disease. Reviewed by: Markus Harman MD on 06/22/2021 12:28 PM MARK Approved by: Markus Harman MD on 06/22/2021 12:28 PM NHCONTRERAS Station ID: [id number]
[2021-06-22 14:19] VITALS: BP 118/59
== END 2021-06-22 14:19 | disposition home or self-care (01) ==
LOC: ED 12:01
DX: J01.00 Acute maxillary sinusitis, unspecified (principal)
CPT/HCPCS: 96372; 99284

== ENCOUNTER 2021-08-19 12:07 | Outpatient (CLI) | payer BC ==
[2021-08-19 13:04] LABS: CALCIUM, IONIZED 1.23 mmol/L (1.15-1.33); VBG PH 7.372 (7.31-7.41)
[2021-08-19 13:11] LABS: ALT ALANINE AMINOTRANSFERASE 15 IU/L (10-60); AST ASPARTATE AMINOTRANSFERASE 22 IU/L (10-42)
[2021-08-19 21:34] LABS: ESTIMATED AVERAGE GLUCOSE 123 mg/dL (70-100); HEMOGLOBIN A1c% 5.9 % (4.27-6.07)
== END 2021-08-19 12:08 | disposition home or self-care (01) ==
LOC: LAB 12:07
PROVIDERS: ATTEND Registered Nurse
DX: R10.11 Right upper quadrant pain (principal); R10.13 Epigastric pain; R14.0 Abdominal distension (gaseous); Z86.32 Personal history of gestational diabetes
CPT/HCPCS: 36415; 82330; 83036; 84450; 84460

== ENCOUNTER 2021-09-12 06:55 | Outpatient (CLI) | payer BC ==
--- NOTE | 2021-09-12 08:50 | Ultrasound Report ---
PROCEDURE: Abdomen Complete INDICATIONS: ABDOMINAL BLOATING, ABDOMINAL PAIN TECHNIQUE: Real-time scanning was performed of the abdominal and retroperitoneal organs, with image documentatio n. COMPARISON: None. FINDINGS: Liver: Liver is normal in size. Increased hepatic parenchymal echogenicity consistent with hepatic s teatosis. Gallbladder: Cholecystectomy. Biliary ducts: Intrahepatic bile ducts are non-dilated. Extrahepatic bile duct caliber measures 4 m m. Normal is 6-7 mm or less in diameter, or 10 mm or less post-cholecystectomy. Pancreas: Visualized portions of the pancreas are sonographically normal. Spleen: Spleen is normal in size and homogeneous in echotexture. Kidneys: Kidneys are normal in size and echotexture. Right kidney measures 10 cm long; left kidney measures 10 cm long. No hydronephrosis or nephrolithiasis. No solid masses. Aorta: Visualized aorta is normal in caliber at less than 3 cm. Iliacs: Proximal common iliac arteries are normal in caliber at less than 2.5 cm. IVC: Intrahepatic inferior vena cava is patent. Miscellaneous: No free abdominal fluid. IMPRESSION: Status post cholecystectomy. Hepatic steatosis. No acute finding. Reviewed by: Rajeev Jameson MD on 09/12/2021 8:49 AM PST Approved by: Rajeev Jameson MD on 09/12/2021 8:49 AM PST Station ID: [id number]
== END 2021-09-12 06:56 | disposition home or self-care (01) ==
LOC: DI 06:55
PROVIDERS: ATTEND Registered Nurse
DX: R10.9 Unspecified abdominal pain (principal); R14.0 Abdominal distension (gaseous); R07.9 Chest pain, unspecified; K76.0 Fatty (change of) liver, not elsewhere classified

== ENCOUNTER 2021-09-19 14:33 | Outpatient (CLI) | payer BC ==
[2021-09-19 14:54] LABS: BASOPHILS % (AUTO) 0.2 %; EOSINOPHILS % (AUTO) 0.7 %; HCT - HEMATOCRIT 35.6 % (37.0-47.0); HGB - HEMOGLOBIN 11.8 g/dL (12.0-16.0); LYMPHOCYTES # (AUTO) 1.2 10^3/uL (1.5-3.5); MEAN CORPUSCULAR HEMOGLOBIN 30.7 pg (27.0-31.0); MEAN CORPUSCULAR HGB CONC 33.1 g/dL (32.0-36.0); MEAN CORPUSCULAR VOLUME 92.7 fL (81.0-99.0); MONOCYTES # (AUTO) 0.3 10^3/uL (0.0-1.0); MONOCYTES % (AUTO) 7.1 %; NEUTROPHILS # (AUTO) 2.8 10^3/uL (1.5-6.6); NEUTROPHILS % (AUTO) 63.8 %; PLT - PLATELET COUNT 243 10^3/uL (130-450); RED BLOOD COUNT 3.84 10^6/uL (4.20-5.40); RED CELL DISTRIBUTION WIDTH 12.6 % (12.0-15.0); WHITE BLOOD COUNT 4.4 x10^3/uL (4.8-10.8)
[2021-09-19 15:15] LABS: ALBUMIN 4.2 g/dL (3.2-5.5); ALBUMIN/GLOBULIN RATIO 1.8 (1.0-2.2); BILIRUBIN,TOTAL 0.7 mg/dL (0.2-1.0); CALCIUM 9.4 mg/dL (8.5-10.3); CREATININE 0.8 mg/dL (0.4-1.0); POTASSIUM 3.9 mmol/L (3.5-5.0); TOTAL PROTEIN 6.6 g/dL (6.7-8.2)
== END 2021-09-19 14:34 | disposition home or self-care (01) ==
LOC: LAB 14:33
PROVIDERS: ATTEND Internal Medicine Rheumatology
DX: M05.79 Rheumatoid arthritis with rheumatoid factor of multiple sites without organ or systems involvement (principal)
CPT/HCPCS: 36415; 80053; 85025; 85651

== ENCOUNTER 2022-01-02 10:56 | Outpatient (CLI) | payer BC ==
[2022-01-02 11:13] LABS: BASOPHILS % (AUTO) 0.3 %; HCT - HEMATOCRIT 38.4 % (37.0-47.0); HGB - HEMOGLOBIN 12.7 g/dL (12.0-16.0); LYMPHOCYTES # (AUTO) 1.6 10^3/uL (1.5-3.5); LYMPHOCYTES % (AUTO) 41.1 %; MEAN CORPUSCULAR HEMOGLOBIN 30.2 pg (27.0-31.0); MEAN CORPUSCULAR HGB CONC 33.1 g/dL (32.0-36.0); MEAN CORPUSCULAR VOLUME 91.2 fL (81.0-99.0); MEAN PLATELET VOLUME 10.5 fL (7.9-10.8); MONOCYTES # (AUTO) 0.4 10^3/uL (0.0-1.0); MONOCYTES % (AUTO) 9.8 %; NEUTROPHILS # (AUTO) 1.8 10^3/uL (1.5-6.6); NEUTROPHILS % (AUTO) 47.5 %; PLT - PLATELET COUNT 246 10^3/uL (130-450); RED BLOOD COUNT 4.21 10^6/uL (4.20-5.40); WHITE BLOOD COUNT 3.9 x10^3/uL (4.8-10.8)
[2022-01-02 11:23] LABS: ALBUMIN 4.2 g/dL (3.2-5.5); ALBUMIN/GLOBULIN RATIO 1.4 (1.0-2.2); BILIRUBIN,TOTAL 0.5 mg/dL (0.2-1.0); CALCIUM 9.4 mg/dL (8.5-10.3); CREATININE 0.7 mg/dL (0.4-1.0); POTASSIUM 4.2 mmol/L (3.5-5.0); TOTAL PROTEIN 7.2 g/dL (6.7-8.2)
[2022-01-02 11:42] LABS: CHOL/HDL RATIO 2.7 (<4.4); CHOLESTEROL 279 mg/dL; HDL CHOLESTEROL 102 mg/dL; LDL CHOLESTEROL,CALCULATED 161 mg/dL; LDL/HDL RATIO 1.6 (<4.4); TRIGLYCERIDES 81 mg/dL; VLDL CHOLESTEROL 16 mg/dL
== END 2022-01-02 10:57 | disposition home or self-care (01) ==
LOC: LAB 10:56
PROVIDERS: ATTEND Internal Medicine Cardiovascular Disease
DX: M05.79 Rheumatoid arthritis with rheumatoid factor of multiple sites without organ or systems involvement (principal); R06.02 Shortness of breath
CPT/HCPCS: 36415; 80053; 80061; 83721; 85025; 85651

== ENCOUNTER 2022-01-29 08:00 | Outpatient (CLI) | payer BC, OTHER ==
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
== END 2022-01-29 23:59 | disposition home or self-care (01) ==
LOC: DI.S 08:00
PROVIDERS: ATTEND Physician Assistant Medical
DX: M47.27 Other spondylosis with radiculopathy, lumbosacral region (principal); Z98.1 Arthrodesis status; Z96.641 Presence of right artificial hip joint

== ENCOUNTER 2022-02-22 14:12 | Outpatient (CLI) | payer BC, OTHER ==
--- NOTE | 2022-02-23 11:44 | Mammography Report ---
BILATERAL DIGITAL SCREENING MAMMOGRAM 3D/2D WITH EXAGGERATED CC: 02/22/2022 CLINICAL: Routine screening. Routine screening. Comparison is made to exams dated: 01/20/2021 mammogram, 06/13/2020 mammogram, 04/10/2020 mammogram - [facility], 05/22/2019 mammogram - [facility], 06/26/2016 mammog [facility], and 09/20/2017 ultrasound - [facility]. The tis alysa of both breasts is heterogeneously dense. This may lower the sensitivity of mammography. There are stable benign calcifications in the left breast. No significant masses, calcifications, or other findings are seen in either breast. There has been no significant interval change. IMPRESSION: BENIGN There is no mammographic evidence of malignancy. A 1 year screening mammogram is recommended. This exam was interpreted at Station ID: [id number]. NOTE: For mammograms, a report in lay terms will be sent to the patient. Approximately 15% of breast malignancies will not be visualized mammographically. In the management of a palpable breast mass, a negative mammogram must not discourage biopsy of a clinically suspicious lesion. Electronically Signed By: Heidi love/penrad:02/23/2022 08:48:45 ACR BI-RADS Category 2: Benign Finding(s) 3342F PARENCHYMAL PATTERN: (D) - The breast(s) demonstrate(s) heterogeneously dense fibroglandular oscar barnett. BI-RADS CATEGORY: (2) - 2 RECOMMENDATION: (ANNUAL) - Recommend routine annual screening mammography. [id number] 1 year screening LATERALITY: (B)
== END 2022-02-22 14:13 | disposition home or self-care (01) ==
LOC: DI.S 14:12
DX: Z12.31 Encounter for screening mammogram for malignant neoplasm of breast (principal)

== ENCOUNTER 2022-04-08 11:32 | Outpatient (CLI) | payer BC ==
[2022-04-08 12:18] LABS: CHOL/HDL RATIO 3.5 (<4.4); CHOLESTEROL 285 mg/dL; HDL CHOLESTEROL 81 mg/dL; LDL CHOLESTEROL,CALCULATED 184 mg/dL; LDL/HDL RATIO 2.3 (<4.4); THYROID STIMULATING HORMONE 0.98 uIU/mL (0.34-5.60); TRIGLYCERIDES 100 mg/dL; VLDL CHOLESTEROL 20 mg/dL
== END 2022-04-08 11:33 | disposition home or self-care (01) ==
LOC: LAB 11:32
PROVIDERS: ATTEND Internal Medicine Cardiovascular Disease
DX: R06.02 Shortness of breath (principal); R74.8 Abnormal levels of other serum enzymes; R03.0 Elevated blood-pressure reading, without diagnosis of hypertension; G43.909 Migraine, unspecified, not intractable, without status migrainosus; M06.9 Rheumatoid arthritis, unspecified; R53.83 Other fatigue
CPT/HCPCS: 36415; 80061; 83721; 84443

== ENCOUNTER 2022-06-10 08:00 | Outpatient (CLI) | payer BC ==
[2022-06-10 15:14] LABS: BILIRUBIN,URINE NEGATIVE (NEGATIVE); GLUCOSE, URINE (UA) NEGATIVE (NEGATIVE); KETONES,URINE (UA) NEGATIVE (NEGATIVE); LEUKOCYTE ESTERASE, URINE TRACE (NEGATIVE); NITRITE,URINE NEGATIVE (NEGATIVE); OCCULT BLOOD,URINE TRACE-INTA (NEGATIVE); PROTEIN,URINE NEGATIVE (NEGATIVE); UROBILINOGEN,URINE 0.2 (NORMAL) E.U./dL (NORMAL)
[2022-06-10 15:19] LABS: CLARITY,URINE CLEAR (CLEAR)
[2022-06-10 15:34] LABS: BACTERIA,URINE Rare /HPF (None Seen); RBC,URINE 0-5 /HPF (0-5); SQUAMOUS EPITHELIAL CELL,UR FEW Squamous (<= Few); WBC,URINE 0-3 /HPF (0-5)
== END 2022-06-10 23:59 | disposition home or self-care (01) ==
LOC: LAB.S 08:00
PROVIDERS: ATTEND Emergency Medicine
DX: R30.0 Dysuria (principal)
CPT/HCPCS: 81001; 87086

== ENCOUNTER 2022-07-08 08:00 | Outpatient (CLI) | payer BC ==
[2022-07-08 22:17] LABS: BACTERIAL VAGINOSIS DNA NEGATIVE (NEGATIVE); CANDIDA GLABRATA DNA NEGATIVE (NEGATIVE); CANDIDA GROUP DNA NEGATIVE (NEGATIVE); CANDIDA KRUSEI DNA NEGATIVE (NEGATIVE); TRICHOMONAS VAGINALIS DNA NEGATIVE (NEGATIVE)
== END 2022-07-08 23:59 | disposition home or self-care (01) ==
LOC: LAB.S 08:00
PROVIDERS: ATTEND Internal Medicine
DX: N76.0 Acute vaginitis (principal)
CPT/HCPCS: 81514

== ENCOUNTER 2022-07-16 08:00 | Outpatient (CLI) | payer BC ==
[2022-07-16 12:32] LABS: BASOPHILS % (AUTO) 0.5 %; EOSINOPHILS % (AUTO) 1.1 %; HGB - HEMOGLOBIN 12.4 g/dL (12.0-16.0); LYMPHOCYTES # (AUTO) 1.3 10^3/uL (1.5-3.5); LYMPHOCYTES % (AUTO) 33.4 %; MEAN CORPUSCULAR HEMOGLOBIN 30.2 pg (27.0-31.0); MEAN CORPUSCULAR HGB CONC 32.6 g/dL (32.0-36.0); MEAN CORPUSCULAR VOLUME 92.5 fL (81.0-99.0); MEAN PLATELET VOLUME 10.5 fL (7.9-10.8); MONOCYTES # (AUTO) 0.3 10^3/uL (0.0-1.0); MONOCYTES % (AUTO) 8.7 %; NEUTROPHILS # (AUTO) 2.1 10^3/uL (1.5-6.6); PLT - PLATELET COUNT 217 10^3/uL (130-450); RED BLOOD COUNT 4.11 10^6/uL (4.20-5.40); RED CELL DISTRIBUTION WIDTH 12.5 % (12.0-15.0); WHITE BLOOD COUNT 3.8 x10^3/uL (4.8-10.8)
[2022-07-16 12:48] LABS: ALBUMIN/GLOBULIN RATIO 1.7 (1.0-2.2); BILIRUBIN,TOTAL 0.2 mg/dL (0.2-1.0); CALCIUM 9.7 mg/dL (8.5-10.3); CREATININE 0.9 mg/dL (0.4-1.0); POTASSIUM 4.9 mmol/L (3.5-5.0); TOTAL PROTEIN 6.4 g/dL (6.7-8.2)
== END 2022-07-16 23:59 | disposition home or self-care (01) ==
LOC: LAB 08:00
PROVIDERS: ATTEND Internal Medicine Rheumatology
DX: M05.79 Rheumatoid arthritis with rheumatoid factor of multiple sites without organ or systems involvement (principal)
CPT/HCPCS: 36415; 80053; 85025; 85651

== ENCOUNTER 2022-09-08 13:14 | Outpatient (CLI) | payer BC ==
[2022-09-08 13:25] LABS: BASOPHILS % (AUTO) 0.3 %; EOSINOPHILS # (AUTO) 0.1 10^3/uL (0.0-0.7); EOSINOPHILS % (AUTO) 1.2 %; HCT - HEMATOCRIT 38.6 % (37.0-47.0); HGB - HEMOGLOBIN 12.6 g/dL (12.0-16.0); LYMPHOCYTES # (AUTO) 1.3 10^3/uL (1.5-3.5); LYMPHOCYTES % (AUTO) 20.1 %; MEAN CORPUSCULAR HEMOGLOBIN 29.9 pg (27.0-31.0); MEAN CORPUSCULAR HGB CONC 32.6 g/dL (32.0-36.0); MEAN CORPUSCULAR VOLUME 91.7 fL (81.0-99.0); MONOCYTES # (AUTO) 0.8 10^3/uL (0.0-1.0); MONOCYTES % (AUTO) 11.3 %; NEUTROPHILS # (AUTO) 4.4 10^3/uL (1.5-6.6); NEUTROPHILS % (AUTO) 66.6 %; PLT - PLATELET COUNT 274 10^3/uL (130-450); RED BLOOD COUNT 4.21 10^6/uL (4.20-5.40); RED CELL DISTRIBUTION WIDTH 12.6 % (12.0-15.0); WHITE BLOOD COUNT 6.6 x10^3/uL (4.8-10.8)
== END 2022-09-08 13:15 | disposition home or self-care (01) ==
LOC: LAB 13:14
PROVIDERS: ATTEND Internal Medicine Rheumatology
DX: D72.819 Decreased white blood cell count, unspecified (principal)
CPT/HCPCS: 36415; 85025

== ENCOUNTER 2022-11-18 13:06 | Outpatient (CLI) | payer BC ==
[2022-11-18 13:17] LABS: BASOPHILS % (AUTO) 0.2 %; EOSINOPHILS % (AUTO) 0.7 %; HCT - HEMATOCRIT 37.4 % (37.0-47.0); HGB - HEMOGLOBIN 12.1 g/dL (12.0-16.0); LYMPHOCYTES # (AUTO) 1.2 10^3/uL (1.5-3.5); LYMPHOCYTES % (AUTO) 29.9 %; MEAN CORPUSCULAR HEMOGLOBIN 30.2 pg (27.0-31.0); MEAN CORPUSCULAR HGB CONC 32.4 g/dL (32.0-36.0); MEAN CORPUSCULAR VOLUME 93.3 fL (81.0-99.0); MEAN PLATELET VOLUME 9.9 fL (7.9-10.8); MONOCYTES # (AUTO) 0.4 10^3/uL (0.0-1.0); MONOCYTES % (AUTO) 10.6 %; NEUTROPHILS # (AUTO) 2.4 10^3/uL (1.5-6.6); NEUTROPHILS % (AUTO) 58.4 %; PLT - PLATELET COUNT 210 10^3/uL (130-450); RED BLOOD COUNT 4.01 10^6/uL (4.20-5.40); RED CELL DISTRIBUTION WIDTH 12.7 % (12.0-15.0); WHITE BLOOD COUNT 4.2 x10^3/uL (4.8-10.8)
[2022-11-18 13:28] LABS: ALBUMIN 3.6 g/dL (3.2-5.5); ALBUMIN/GLOBULIN RATIO 1.4 (1.0-2.2); BILIRUBIN,TOTAL 0.3 mg/dL (0.2-1.0); CREATININE 0.7 mg/dL (0.4-1.0); POTASSIUM 4.5 mmol/L (3.5-5.0); TOTAL PROTEIN 6.2 g/dL (6.7-8.2)
== END 2022-11-18 13:07 | disposition home or self-care (01) ==
LOC: LAB 13:06
PROVIDERS: ATTEND Internal Medicine Rheumatology
DX: M05.79 Rheumatoid arthritis with rheumatoid factor of multiple sites without organ or systems involvement (principal)
CPT/HCPCS: 36415; 80053; 85025; 85651

== ENCOUNTER 2022-12-07 08:49 | Outpatient (CLI) | payer BC ==
[2022-12-07 09:22] LABS: CHOL/HDL RATIO 3.7 (<4.4); CHOLESTEROL 284 mg/dL; HDL CHOLESTEROL 76 mg/dL; LDL CHOLESTEROL,CALCULATED 183 mg/dL; LDL/HDL RATIO 2.4 (<4.4); TRIGLYCERIDES 123 mg/dL; VLDL CHOLESTEROL 25 mg/dL
[2022-12-07 09:33] LABS: THYROID STIMULATING HORMONE 0.8 uIU/mL (0.34-5.60)
== END 2022-12-07 08:50 | disposition home or self-care (01) ==
LOC: LAB 08:49
PROVIDERS: ATTEND Internal Medicine
DX: E78.5 Hyperlipidemia, unspecified (principal); E06.9 Thyroiditis, unspecified
CPT/HCPCS: 36415; 80061; 83721; 84443

== ENCOUNTER 2023-01-08 08:00 | Outpatient (CLI) | payer BC ==
[2023-01-08 14:39] LABS: BILIRUBIN,URINE NEGATIVE (NEGATIVE); GLUCOSE, URINE (UA) NEGATIVE (NEGATIVE); KETONES,URINE (UA) NEGATIVE (NEGATIVE); LEUKOCYTE ESTERASE, URINE SMALL (NEGATIVE); NITRITE,URINE NEGATIVE (NEGATIVE); OCCULT BLOOD,URINE TRACE-INTA (NEGATIVE); PROTEIN,URINE NEGATIVE (NEGATIVE); UROBILINOGEN,URINE 0.2 (NORMAL) E.U./dL (NORMAL)
[2023-01-08 14:57] LABS: CLARITY,URINE CLEAR (CLEAR)
[2023-01-08 14:58] LABS: BACTERIA,URINE Few /HPF (None Seen); RBC,URINE 0-5 /HPF (0-5); SQUAMOUS EPITHELIAL CELL,UR RARE Squamous (<= Few)
== END 2023-01-08 23:59 | disposition home or self-care (01) ==
LOC: LAB.S 08:00
PROVIDERS: ATTEND Emergency Medicine
DX: N39.0 Urinary tract infection, site not specified (principal)
CPT/HCPCS: 81001; 87077; 87086; 87181

== ENCOUNTER 2023-01-25 15:24 | Outpatient (CLI) | payer BC ==
[2023-01-25 15:37] LABS: BASOPHILS % (AUTO) 0.3 %; EOSINOPHILS % (AUTO) 0.8 %; HCT - HEMATOCRIT 38.7 % (37.0-47.0); HGB - HEMOGLOBIN 12.6 g/dL (12.0-16.0); LYMPHOCYTES # (AUTO) 1.2 10^3/uL (1.5-3.5); MEAN CORPUSCULAR HEMOGLOBIN 30.2 pg (27.0-31.0); MEAN CORPUSCULAR HGB CONC 32.6 g/dL (32.0-36.0); MEAN CORPUSCULAR VOLUME 92.8 fL (81.0-99.0); MEAN PLATELET VOLUME 10.1 fL (7.9-10.8); MONOCYTES # (AUTO) 0.3 10^3/uL (0.0-1.0); MONOCYTES % (AUTO) 7.7 %; NEUTROPHILS # (AUTO) 2.1 10^3/uL (1.5-6.6); NEUTROPHILS % (AUTO) 57.2 %; PLT - PLATELET COUNT 221 10^3/uL (130-450); RED BLOOD COUNT 4.17 10^6/uL (4.20-5.40); RED CELL DISTRIBUTION WIDTH 12.4 % (12.0-15.0); WHITE BLOOD COUNT 3.6 x10^3/uL (4.8-10.8)
[2023-01-25 16:07] LABS: ALBUMIN/GLOBULIN RATIO 1.7 (1.0-2.2); BILIRUBIN,TOTAL 0.3 mg/dL (0.2-1.0); CALCIUM 8.9 mg/dL (8.5-10.3); CREATININE 0.7 mg/dL (0.4-1.0); POTASSIUM 3.6 mmol/L (3.5-5.0); TOTAL PROTEIN 6.4 g/dL (6.7-8.2)
== END 2023-01-25 15:25 | disposition home or self-care (01) ==
LOC: LAB 15:24
PROVIDERS: ATTEND Internal Medicine Rheumatology
DX: M05.79 Rheumatoid arthritis with rheumatoid factor of multiple sites without organ or systems involvement (principal)
CPT/HCPCS: 36415; 80053; 85025; 85651

== ENCOUNTER 2023-03-25 10:09 | Outpatient (CLI) | payer BC ==
--- NOTE | 2023-03-26 09:48 | Mammography Report ---
BILATERAL DIGITAL SCREENING MAMMOGRAM 3D/2D: 03/25/2023 CLINICAL: Routine screening. Comparison is made to exams dated: 02/22/2022 mammogram, 01/20/2021 mammogram, 06/13/2020 mammogram, 04/10/2020 mammogram - [facility], and 11/30/2018 mammogram - [facility]. Both breasts are heterogeneously dense, which may obscure small masses (category c / 51-75% glandular tissue). There are stable benign calcifications in the left breast. No significant masses, calcifications, or other findings are seen in either breast. There has been no significant interval change. IMPRESSION: BENIGN There is no mammographic evidence of malignancy. A 1 year screening mammogram is recommended. Based on the Tyrer Cuzick model (a risk assessment model) the patients lifetime risk is 9.4% and her 10 year risk is 3.6%. According to the ACR, ACS, and NCCN guidelines, an annual breast MRI exam shannan g with mammogram is recommended if the patients lifetime risk is 20% or greater. This exam was interpreted at Station ID: [id number]. NOTE: For mammograms, a report in lay terms will be sent to the patient. Approximately 15% of breast malignancies will not be visualized mammographically. In the management of a palpable breast mass, a negative mammogram must not discourage biopsy of a clinically suspicious lesion. Electronically Signed By: Jayce pillai/jo:03/25/2023 12:11:24 letter sent: No_Letter ACR BI-RADS Category 2: Benign Finding(s) 3342F PARENCHYMAL PATTERN: (D) - The breast(s) demonstrate(s) heterogeneously dense fibroglandular oscar barnett. BI-RADS CATEGORY: (2) - 2 Mammogram [id number] 1 year screening LATERALITY: (B)
== END 2023-03-25 10:10 | disposition home or self-care (01) ==
LOC: DI 10:09
PROVIDERS: ATTEND Registered Nurse
DX: Z12.31 Encounter for screening mammogram for malignant neoplasm of breast (principal)

== ENCOUNTER 2023-04-12 14:40 | Outpatient (CLI) | payer BC ==
--- NOTE | 2023-04-12 18:26 | XRAY Report ---
PROCEDURE: Chest 2 View X-Ray INDICATIONS: CHEST TIGHTNESS, COVID+ TECHNIQUE: 2 views of the chest were acquired. COMPARISON: Chest radiograph 06/30/2020 FINDINGS: Surgical changes and devices: None. Lungs and pleura: No pleural effusions or pneumothorax. Lungs are clear. Lungs appear hyperinflat ed, finding that can be seen in the setting of COPD. Mediastinum: Mediastinal contours appear normal. Heart size is normal. Bones and chest wall: No suspicious bony lesions. Overlying soft tissues appear unremarkable. IMPRESSION: No acute cardiopulmonary process. Reviewed by: Micah Chu MD on 04/12/2023 6:24 PM PDT Approved by: Micah Chu MD on 04/12/2023 6:24 PM PDT Station ID: [id number]
== END 2023-04-12 23:59 | disposition home or self-care (01) ==
LOC: DI.S 14:40
PROVIDERS: ATTEND Physician Assistant
DX: R07.89 Other chest pain (principal)

== ENCOUNTER 2023-06-09 10:05 | Outpatient (CLI) | payer BC ==
[2023-06-09 10:50] LABS: BASOPHILS % (AUTO) 0.4 %; EOSINOPHILS # (AUTO) 0.1 10^3/uL (0.0-0.7); EOSINOPHILS % (AUTO) 1.9 %; HCT - HEMATOCRIT 38.1 % (37.0-47.0); HGB - HEMOGLOBIN 12.6 g/dL (12.0-16.0); LYMPHOCYTES # (AUTO) 1.1 10^3/uL (1.5-3.5); MEAN CORPUSCULAR HEMOGLOBIN 30.5 pg (27.0-31.0); MEAN CORPUSCULAR HGB CONC 33.1 g/dL (32.0-36.0); MEAN CORPUSCULAR VOLUME 92.3 fL (81.0-99.0); MEAN PLATELET VOLUME 10.4 fL (7.9-10.8); MONOCYTES # (AUTO) 0.3 10^3/uL (0.0-1.0); MONOCYTES % (AUTO) 10.7 %; NEUTROPHILS # (AUTO) 1.3 10^3/uL (1.5-6.6); PLT - PLATELET COUNT 224 10^3/uL (130-450); RED BLOOD COUNT 4.13 10^6/uL (4.20-5.40); RED CELL DISTRIBUTION WIDTH 12.5 % (12.0-15.0); WHITE BLOOD COUNT 2.7 x10^3/uL (4.8-10.8)
[2023-06-09 10:51] LABS: RBC MORPHOLOGY (MULTIPLE) 1+ ANISOCYTOSIS (NORMAL); SLIDE REVIEW? Indicated
== END 2023-06-09 10:06 | disposition home or self-care (01) ==
LOC: LAB 10:05
PROVIDERS: ATTEND Internal Medicine Rheumatology
DX: D72.819 Decreased white blood cell count, unspecified (principal); M06.9 Rheumatoid arthritis, unspecified
CPT/HCPCS: 36415; 85025; 86225

== ENCOUNTER 2023-08-27 14:18 | Outpatient (CLI) | payer BC ==
[2023-08-27 14:31] LABS: BASOPHILS % (AUTO) 0.2 %; EOSINOPHILS # (AUTO) 0.1 10^3/uL (0.0-0.7); EOSINOPHILS % (AUTO) 1.4 %; HCT - HEMATOCRIT 37.5 % (37.0-47.0); HGB - HEMOGLOBIN 11.9 g/dL (12.0-16.0); LYMPHOCYTES # (AUTO) 1.1 10^3/uL (1.5-3.5); LYMPHOCYTES % (AUTO) 25.4 %; MEAN CORPUSCULAR HEMOGLOBIN 29.9 pg (27.0-31.0); MEAN CORPUSCULAR HGB CONC 31.7 g/dL (32.0-36.0); MEAN CORPUSCULAR VOLUME 94.2 fL (81.0-99.0); MEAN PLATELET VOLUME 9.5 fL (7.9-10.8); MONOCYTES # (AUTO) 0.3 10^3/uL (0.0-1.0); MONOCYTES % (AUTO) 6.9 %; NEUTROPHILS # (AUTO) 2.8 10^3/uL (1.5-6.6); NEUTROPHILS % (AUTO) 65.9 %; PLT - PLATELET COUNT 331 10^3/uL (130-450); RED BLOOD COUNT 3.98 10^6/uL (4.20-5.40); RED CELL DISTRIBUTION WIDTH 12.8 % (12.0-15.0); WHITE BLOOD COUNT 4.2 x10^3/uL (4.8-10.8)
[2023-08-27 14:50] LABS: ALBUMIN 4.5 g/dL (3.2-5.5); ALBUMIN/GLOBULIN RATIO 2.4 (1.0-2.2); BILIRUBIN,TOTAL 0.2 mg/dL (0.2-1.0); CALCIUM 9.5 mg/dL (8.5-10.3); CREATININE 0.7 mg/dL (0.6-1.3); POTASSIUM 3.9 mmol/L (3.5-4.5); TOTAL PROTEIN 6.4 g/dL (6.4-8.9)
== END 2023-08-27 14:19 | disposition home or self-care (01) ==
LOC: LAB 14:18
PROVIDERS: ATTEND Internal Medicine Rheumatology
DX: M05.79 Rheumatoid arthritis with rheumatoid factor of multiple sites without organ or systems involvement (principal)
CPT/HCPCS: 36415; 80053; 85025; 85651

== ENCOUNTER 2023-09-04 08:00 | Outpatient (CLI) | payer BC | END 2023-09-04 23:59 | disposition home or self-care (01) | LOC: LAB.S 08:00 | PROVIDERS: ATTEND Registered Nurse | DX: H00.016 Hordeolum externum left eye, unspecified eyelid (principal) | CPT/HCPCS: 87070; 87205 ==

== ENCOUNTER 2023-09-23 13:52 | Outpatient (CLI) | payer BC ==
[2023-09-23 14:02] LABS: BASOPHILS % (AUTO) 0.2 %; EOSINOPHILS % (AUTO) 0.9 %; HCT - HEMATOCRIT 38.2 % (37.0-47.0); HGB - HEMOGLOBIN 12.6 g/dL (12.0-16.0); LYMPHOCYTES # (AUTO) 1.4 10^3/uL (1.5-3.5); LYMPHOCYTES % (AUTO) 33.1 %; MEAN CORPUSCULAR HEMOGLOBIN 30.6 pg (27.0-31.0); MEAN CORPUSCULAR VOLUME 92.7 fL (81.0-99.0); MEAN PLATELET VOLUME 9.8 fL (7.9-10.8); MONOCYTES # (AUTO) 0.3 10^3/uL (0.0-1.0); MONOCYTES % (AUTO) 7.3 %; NEUTROPHILS # (AUTO) 2.5 10^3/uL (1.5-6.6); NEUTROPHILS % (AUTO) 58.5 %; PLT - PLATELET COUNT 261 10^3/uL (130-450); RED BLOOD COUNT 4.12 10^6/uL (4.20-5.40); RED CELL DISTRIBUTION WIDTH 12.9 % (12.0-15.0); WHITE BLOOD COUNT 4.2 x10^3/uL (4.8-10.8)
== END 2023-09-23 13:53 | disposition home or self-care (01) ==
LOC: LAB 13:52
PROVIDERS: ATTEND Internal Medicine Rheumatology
DX: D72.819 Decreased white blood cell count, unspecified (principal)
CPT/HCPCS: 36415; 85025

== ENCOUNTER 2023-11-18 12:46 | Outpatient (CLI) | payer BC ==
[2023-11-18 13:14] LABS: BASOPHILS % (AUTO) 0.5 %; EOSINOPHILS # (AUTO) 0.1 10^3/uL (0.0-0.7); LYMPHOCYTES % (AUTO) 25.4 %; MEAN CORPUSCULAR HEMOGLOBIN 30.2 pg (27.0-31.0); MEAN CORPUSCULAR HGB CONC 32.5 g/dL (32.0-36.0); MEAN CORPUSCULAR VOLUME 92.8 fL (81.0-99.0); MEAN PLATELET VOLUME 10.4 fL (7.9-10.8); MONOCYTES # (AUTO) 0.4 10^3/uL (0.0-1.0); MONOCYTES % (AUTO) 8.8 %; NEUTROPHILS # (AUTO) 2.6 10^3/uL (1.5-6.6); NEUTROPHILS % (AUTO) 63.1 %; PLT - PLATELET COUNT 215 10^3/uL (130-450); RED BLOOD COUNT 4.31 10^6/uL (4.20-5.40); RED CELL DISTRIBUTION WIDTH 12.4 % (12.0-15.0); WHITE BLOOD COUNT 4.1 x10^3/uL (4.8-10.8)
[2023-11-18 13:18] LABS: ALBUMIN 4.4 g/dL (3.2-5.5); ALBUMIN/GLOBULIN RATIO 2.2 (1.0-2.2); BILIRUBIN,TOTAL 0.2 mg/dL (0.2-1.0); CALCIUM 9.4 mg/dL (8.5-10.3); CREATININE 0.9 mg/dL (0.6-1.3); POTASSIUM 4.2 mmol/L (3.5-4.5); TOTAL PROTEIN 6.4 g/dL (6.4-8.9)
== END 2023-11-18 12:47 | disposition home or self-care (01) ==
LOC: LAB 12:46
PROVIDERS: ATTEND Internal Medicine Rheumatology
DX: M06.9 Rheumatoid arthritis, unspecified (principal)
CPT/HCPCS: 36415; 80053; 85025; 85651

== ENCOUNTER 2024-02-09 14:35 | Outpatient (CLI) | payer BC ==
[2024-02-09 14:51] LABS: BASOPHILS % (AUTO) 0.3 %; EOSINOPHILS % (AUTO) 1.1 %; HCT - HEMATOCRIT 35.2 % (37.0-47.0); HGB - HEMOGLOBIN 11.8 g/dL (12.0-16.0); LYMPHOCYTES # (AUTO) 1.2 10^3/uL (1.5-3.5); LYMPHOCYTES % (AUTO) 34.5 %; MEAN CORPUSCULAR HEMOGLOBIN 30.6 pg (27.0-31.0); MEAN CORPUSCULAR HGB CONC 33.5 g/dL (32.0-36.0); MEAN CORPUSCULAR VOLUME 91.4 fL (81.0-99.0); MEAN PLATELET VOLUME 9.7 fL (7.9-10.8); MONOCYTES # (AUTO) 0.3 10^3/uL (0.0-1.0); MONOCYTES % (AUTO) 7.8 %; PLT - PLATELET COUNT 242 10^3/uL (130-450); RED BLOOD COUNT 3.85 10^6/uL (4.20-5.40); RED CELL DISTRIBUTION WIDTH 12.3 % (12.0-15.0); WHITE BLOOD COUNT 3.6 x10^3/uL (4.8-10.8)
[2024-02-09 15:12] LABS: ALBUMIN 4.3 g/dL (3.2-5.5); ALBUMIN/GLOBULIN RATIO 2.4 (1.0-2.2); BILIRUBIN,TOTAL 0.3 mg/dL (0.2-1.0); CALCIUM 9.5 mg/dL (8.5-10.3); CREATININE 0.8 mg/dL (0.6-1.3); POTASSIUM 4.3 mmol/L (3.5-4.5); TOTAL PROTEIN 6.1 g/dL (6.4-8.9)
== END 2024-02-09 14:36 | disposition home or self-care (01) ==
LOC: LAB 14:35
PROVIDERS: ATTEND Internal Medicine Rheumatology
DX: M05.79 Rheumatoid arthritis with rheumatoid factor of multiple sites without organ or systems involvement (principal)
CPT/HCPCS: 36415; 80053; 85025; 85651

== ENCOUNTER 2024-03-30 11:26 | Outpatient (CLI) | payer BC ==
--- NOTE | 2024-03-31 09:08 | Mammography Report ---
BILATERAL DIGITAL SCREENING MAMMOGRAM 3D/2D: 03/30/2024 CLINICAL: Routine screening. Comparison is made to exams dated: 02/22/2022 mammogram, 01/20/2021 mammogram, 09/26/2020 breast MRI, 06/13/2020 mammogram, 04/10/2020 mammogram - [facility], and 05/22/2019 mammogram - [facility]. Both breasts are heterogeneously dense, which may obscure small masses (category c / 51-75% glandular tissue). There are benign calcifications in the left breast. No significant masses, calcifications, or other findings are seen in either breast. There has been no significant interval change. IMPRESSION: BENIGN There is no mammographic evidence of malignancy. A 1 year screening mammogram is recommended. Based on the Tyrer Cuzick model (a risk assessment model) the patient's lifetime risk is 9.2% and her 10 year risk is 3.7%. According to the ACR, ACS, and NCCN guidelines, an annual breast MRI exam shannan g with mammogram is recommended if the patient's lifetime risk is 20% or greater. This exam was interpreted at Station ID: [id number]. NOTE: For mammograms, a report in lay terms will be sent to the patient. Approximately 15% of breast malignancies will not be visualized mammographically. In the management of a palpable breast mass, a negative mammogram must not discourage biopsy of a clinically suspicious lesion. Electronically Signed By: Jonathan johnson/jo:03/30/2024 16:27:14 letter sent: No_Letter ACR BI-RADS Category 2: Benign Finding(s) 3342F PARENCHYMAL PATTERN: (D) - The breast(s) demonstrate(s) heterogeneously dense fibroglandular parenchy ma. BI-RADS CATEGORY: (2) - 2 RECOMMENDATION: (ANNUAL) - Recommend routine annual screening mammography. [id number] 1 year screening LATERALITY: (B)
== END 2024-03-30 11:27 | disposition home or self-care (01) ==
LOC: DI 11:26
PROVIDERS: ATTEND Registered Nurse
DX: Z12.31 Encounter for screening mammogram for malignant neoplasm of breast (principal); R92.333 Mammographic heterogeneous density, bilateral breasts

== ENCOUNTER 2024-04-14 10:38 | Outpatient (CLI) | payer BC ==
--- NOTE | 2024-04-14 11:50 | CT Report ---
PROCEDURE: Sinus INDICATIONS: SINUSITIS TECHNIQUE: Noncontrast 3.0 mm axial images acquired from the frontal sinuses to the mid-sella, with coronal and sagittal reformats. For radiation dose reduction, the following was used: automated exposure control , adjustment of mA and/or kV according to patient size. COMPARISON: 06/22/2021 FINDINGS: Image quality: Metallic streak artifact is seen, which is reduced by the metal suppression algorithm . Maxillary Sinuses: No bony remodeling or destruction. Along the superior medial aspect of the left m axillary sinus, there is a stable bony focus seen, leading to narrowing within this region, as on ser ies 10 image 24. Sinuses are clear. Ethmoid Air Cells: No bony remodeling or destruction. Sinuses are clear. Sphenoid Sinuses: No bony remodeling or destruction. Sinuses are clear. Frontal Sinuses: No bony remodeling or destruction. Sinuses are clear. Ostiomeatal Complexes: Ostiomeatal complexes are patent. No Nina cells. Miscellaneous: Visualized intra-orbital contents are normal. No fortino bullosa. There is minimal rightward nasal septal deviation. IMPRESSION: No significant active paranasal sinus disease can be seen. Note is made of a stable bony excrescence along the superior medial aspect of the left maxillary sinu s, which leads to narrowing of this region. Reviewed by: Markus Harman MD on 04/14/2024 10:49 AM MARK Approved by: Markus Harman MD on 04/14/2024 10:49 AM MARK Station ID: [id number]
== END 2024-04-14 10:39 | disposition home or self-care (01) ==
LOC: DI 10:38
PROVIDERS: ATTEND Registered Nurse
DX: R43.8 Other disturbances of smell and taste (principal)

== ENCOUNTER 2024-06-06 09:29 | Outpatient (CLI) | payer BC ==
[2024-06-06 10:06] LABS: BASOPHILS % (AUTO) 0.6 %; EOSINOPHILS % (AUTO) 0.9 %; HCT - HEMATOCRIT 37.5 % (37.0-47.0); HGB - HEMOGLOBIN 12.5 g/dL (12.0-16.0); LYMPHOCYTES # (AUTO) 1.4 10^3/uL (1.5-3.5); LYMPHOCYTES % (AUTO) 42.9 %; MEAN CORPUSCULAR HEMOGLOBIN 30.9 pg (27.0-31.0); MEAN CORPUSCULAR HGB CONC 33.3 g/dL (32.0-36.0); MEAN CORPUSCULAR VOLUME 92.6 fL (81.0-99.0); MEAN PLATELET VOLUME 10.1 fL (7.9-10.8); MONOCYTES # (AUTO) 0.3 10^3/uL (0.0-1.0); MONOCYTES % (AUTO) 10.1 %; NEUTROPHILS # (AUTO) 1.4 10^3/uL (1.5-6.6); NEUTROPHILS % (AUTO) 45.2 %; PLT - PLATELET COUNT 241 10^3/uL (130-450); RED BLOOD COUNT 4.05 10^6/uL (4.20-5.40); RED CELL DISTRIBUTION WIDTH 12.7 % (12.0-15.0); WHITE BLOOD COUNT 3.2 x10^3/uL (4.8-10.8)
[2024-06-06 10:19] LABS: BILIRUBIN,TOTAL 0.4 mg/dL (0.2-1.0); CREATININE 0.8 mg/dL (0.6-1.3); POTASSIUM 4.2 mmol/L (3.5-4.5)
== END 2024-06-06 09:30 | disposition home or self-care (01) ==
LOC: LAB 09:29
PROVIDERS: ATTEND Internal Medicine Rheumatology
DX: M05.79 Rheumatoid arthritis with rheumatoid factor of multiple sites without organ or systems involvement (principal)
CPT/HCPCS: 36415; 80053; 85025; 85651